=== PATIENT | male | born 1955 | race Caucasian/White ===

== ENCOUNTER 2017-10-25 21:33 | Inpatient (IN) ==
[2017-10-25] MEDS ORDERED: Ketorolac Inj 30 MG/ML (IVP) Vial IV.PUSH ONE (22:49)
[2017-10-25] MEDS ORDERED: Orphenadrine Inj 60 MG/2 ML Ampul IM ONE (22:49)
--- NOTE | 2017-10-25 23:06 | ED ---
HPI General Chief complaint: Back Pain/Injury Stated complaint: Back Pain Time Seen by Provider: 10/25/17 22:38 Source: patient Mode of arrival: EMS Limitations: no limitations History of Present Illness HPI narrative: 62-year-old male with history significant for CAD, CABG 5, pacemaker, presents emergency department for evaluation of left flank pain. Patient states that this started about 3 days ago. He was pulling weeds in his yard and he believes he may have "tweaked his back." He states the pain has not gotten any better despite what he tries. It has only gotten worse. He denies any urinary symptoms. No fever or chills. No nausea or vomiting. He has no other symptoms to report at this time. Related Data Home Medications Medication Instructions Recorded Confirmed Unable to Obtain Home Meds 10/25/17 10/25/17 Allergies Allergy/AdvReac Type Severity Reaction Status Date / Time No Known Allergies Allergy Unverified 10/25/17 22:42 Review of Systems ROS: all other systems reviewed are negative [facility] Medical History Medical History Coronary artery disease (Acute) High cholesterol (Acute) Pacemaker (Acute) Surgical History Surgical History Hx of CABG (Acute) Social History Social History Substance History: No History of Abuse Second Hand Smoke Exposure: No Smoking Status: Never smoker How Often Do You Have a Drink Containing Alcohol: Never [facility] within the Last 8 Weeks: No Recent Out of Country Travel within the Last 8 Weeks: No Immunization History Tetanus Immunization: Unsure Hx Influenza Vaccine This Season: No Exam Narrative Exam Narrative: GENERAL: Well-nourished male patient, appears well and without distress. SKIN: Focused skin assessment warm/dry. HEAD: Atraumatic. Normocephalic. EYES: Pupils equal and round. No scleral icterus. No injection or drainage. ENT: No nasal bleeding or discharge. Mucous membranes pink and moist. NECK: Trachea midline. No JVD. CARDIOVASCULAR: Regular rate and rhythm. RESPIRATORY: No accessory muscle use. Clear to auscultation. Breath sounds equal bilaterally. Left anterior chest wall pacemaker in place. GASTROINTESTINAL: Abdomen soft, nondistended. Left sided tenderness to palpation. Mild guarding. No rebound tenderness.. Hepatic and splenic margins not palpable. MUSCULOSKELETAL: No obvious deformities. No clubbing. No cyanosis. No edema. Left CVA tenderness. No spinal tenderness. NEUROLOGICAL: Awake and alert. No obvious cranial nerve deficits. Motor grossly within normal limits. Normal speech. PSYCHIATRIC: Appropriate mood and affect; insight and judgment normal. Course Initial Documented Vital Signs Temperature 98.7 F 10/25/17 22:14 Pulse Rate 85 10/25/17 22:14 Respiratory Rate 18 10/25/17 22:14 Blood Pressure 120/82 10/25/17 22:14 Pulse Oximetry 96 10/25/17 22:14 Last Documented Vital Signs Temperature 98.0 F 10/25/17 22:43 Pulse Rate 82 10/25/17 22:43 Respiratory Rate 16 10/25/17 23:56 Blood Pressure 148/90 H 10/25/17 22:43 Pulse Oximetry 97 10/25/17 22:43 Medical Decision Making SHIVA Attestation SHIVA supervised visit: Yes MDM Narrative Medical decision making narrative: 62-year-old male presents emergency department for evaluation of left flank pain, thanking you may have injured himself while pulling weeds 3 days ago. Patient appears without distress. He does have significant left-sided abdominal tenderness as well as left CVA tenderness. Urinalysis was drawn and with hematuria. Patient has been treated for pain. I have high suspicion for renal calculi. CT imaging is ordered. Basic labs ordered to evaluate for renal function as well. 0200 CT imaging results 2 mm nonobstructing renal calculi as well as enlargement of the left psoas muscle with inflammatory changes. There foci air within the muscle but no appreciable abscess. This is very concerning for infection. I discussed the patient my attending physician. He recommends blood cultures, IV antibiotics, admission to medicine with consideration of consult to general surgery for morning. Plan is discussed with the patient. He is in agreement with this plan of care. Medical Screen Exam Complete: Yes Emergency Medical Condition: Yes Differential Diagnosis Differential Diagnosis: Muscle strain versus discogenic pain versus renal calculi versus UTI Medical Records Medical records reviewed: Yes I reviewed the patient's medical records. Lab Data Lab results reviewed: Yes I reviewed the patient's lab results. Result diagrams: 10/26/17 00:25 10/26/17 00:25 Lab Results 10/25/17 10/26/17 10/26/17 Range/Units 23:10 00:25 00:25 WBC 7.4 (4.0-11.0) th/mm3 RBC 4.57 (4.50-5.90) mil/mm3 Hgb 14.5 (13.0-17.0) gm/dL Hct 42.9 (39.0-51.0) % MCV 93.7 (80.0-100.0) fL MCH 31.6 (27.0-34.0) pg MCHC 33.7 (32.0-36.0) % RDW 13.7 (11.6-17.2) % Plt Count 128 L (150-450) th/mm3 MPV 8.5 (7.0-11.0) fL Neut % (Auto) 87.9 H (16.0-70.0) % Lymph % (Auto) 5.1 L (9.0-44.0) % [place] % (Auto) 6.7 (0.0-8.0) % Eos % (Auto) 0.2 (0.0-4.0) % Baso % (Auto) 0.1 (0.0-2.0) % Neut # (Auto) 6.5 (1.8-7.7) th/mm3 Lymph # (Auto) 0.4 L (1.0-4.8) th/mm3 [place]ell # (Auto) 0.5 (0.0-0.9) th/mm3 Eos # (Auto) 0.0 (0.0-0.4) th/mm3 Baso # (Auto) 0.0 (0.0-0.2) th/mm3 WBC Differential . Differential Comment Auto diff final Sodium 140 (136-145) meq/L Potassium 3.3 L (3.5-5.1) meq/L Chloride 103 (98-107) meq/L Carbon Dioxide 26.4 (21.0-32.0) meq/L Anion Gap 11 (5-15) meq/L BUN 22 H (7-18) mg/dL Creatinine 1.21 (0.60-1.30) mg/dL Estimated GFR 61 L (>89) mL/min Random Glucose 121 H (74-106) mg/dL Calcium 8.5 (8.5-10.1) mg/dL Urine Color Yellow (Yellw/Straw) Urine Clarity Clear (Clear) Urine pH 5.0 (5.0-8.5) Ur Specific [place] 1.012 (1.002-1.035) Urine Protein 100 H (Neg-Trace) mg/dL Urine Glucose (UA) Negative (Negative) mg/dL Urine Ketones Negative (Negative) mg/dL Urine Occult Blood Moderate H (Negative) Urine Nitrate Negative (Negative) Urine Bilirubin Negative (Negative) Urine Urobilinogen 4 or greater (Less than 2) mg/dL Ur Leukocyte Esterase Negative (Negative) Urine RBC 1 (0-3) /hpf Urine WBC 1 (0-5) /hpf Ur Squamous Epith Cells <1 (0-5) /hpf Urine Mucus Few H (Occasional) /lpf Micro UA Comment Culture not ind Ur Microscopic Review Not Reportable Urine Culture Comments Culture not ind Imaging Data Radiologist's impression: Abdomen/Pelvis CT 10/26/17 00:16 CONCLUSION: 1. Left psoas muscle is enlarged with surrounding inflammatory change and contains multiple foci of air consistent with phlegmonous change and developing psoas abscess. However, there is no significant focal drainable collection at this time. 2. Punctate 2 mm nonobstructing right renal calculus. 3. Normal appendix. Discharge Plan Discharge Disposition Patient Disposition: 30 Still Patient Discharge Condition Condition: Stable Discharge Details Diagnosis: Psoas abscess, left, Calculus, renal, Acute flank pain Physicians Team ED Provider: Jamin Barrett ED Midlevel Provider: Alicia Ramirez Primary Care Provider: Primary Care Celia Denise Rxs /Orders / Referrals /Forms Prescriptions: No Action Unable to Obtain Home Meds RF: 0 Discharge Interventions Interventions: Vital Signs Last Done: 10/25/17 22:14 Status ED Status: Pending Admission
[2017-10-25] MEDS: Sod Chloride 0.9% Inj 1,000 ML IV.SIG SCH (23:08)
[2017-10-26 00:04] LABS: Bilirubin,Urine Negative (Negative); Clarity,Urine Clear (Clear); Color,Urine Yellow (Yellw/Straw); Glucose,Urine (UA) Negative (Negative); Leukocyte Esterase,Urine Negative (Negative); Mucus,Urine Few /lpf (Occasional); Nitrite,Urine Negative (Negative); Specific Gravity,Urine 1.012 (1.002-1.035); Squamous Epithelial Cell,Urine <1 /hpf (0-5); Urobilinogen,Urine 4 or Greater mg/dL (Less than 2)
[2017-10-26 00:43] LABS: Baso % (Auto) 0.1 % (0.0-2.0); Eos % (Auto) 0.2 % (0.0-4.0); Hematocrit 42.9 % (39.0-51.0); Hemoglobin 14.5 gm/dL (13.0-17.0); Lymph # (Auto) 0.4 th/mm3 (1.0-4.8); Lymph % (Auto) 5.1 % (9.0-44.0); Mean Corpuscular HGB Conc 33.7 % (32.0-36.0); Mean Corpuscular Hemoglobin 31.6 pg (27.0-34.0); Mean Corpuscular Volume 93.7 fL (80.0-100.0); Mean Platelet Volume 8.5 fL (7.0-11.0); Mono # (Auto) 0.5 th/mm3 (0.0-0.9); Mono % (Auto) 6.7 % (0.0-8.0); Neut # (Auto) 6.5 th/mm3 (1.8-7.7); Neut % (Auto) 87.9 % (16.0-70.0); Platelet Count 128 th/mm3 (150-450); Red Blood Count 4.57 mil/mm3 (4.50-5.90); Red Cell Distribution Width 13.7 % (11.6-17.2); White Blood Count 7.4 th/mm3 (4.0-11.0)
[2017-10-26 01:13] LABS: Calcium 8.5 mg/dL (8.5-10.1); Carbon Dioxide 26.4 meq/L (21.0-32.0); Potassium 3.3 meq/L (3.5-5.1)
--- NOTE | 2017-10-26 01:51 | CT ---
EXAM DATE: 10/26/2017 1:36 AM EDT AGE/SEX: 62 years / Male INDICATIONS: Left side flank pain CLINICAL DATA: This is the patient's initial encounter. Patient reports that signs and symptoms have been present for 1 day and indicates a pain score of 8/10. MEDICAL/SURGICAL HISTORY: Cardiovascular disease. Pacemaker. CABG. RADIATION DOSE: 16.85 CTDI (mGy) COMPARISON: No prior exams available for comparison. TECHNIQUE: Multiple contiguous axial images were obtained through the abdomen. Images were obtained using multiple row detector helical technique. Using automated exposure control and adjustment of the mA and/or kV according to patient size, radiation dose was kept as low as reasonably achievable to o btain optimal diagnostic quality images. DICOM format image data is available electronically for rev iew and comparison. FINDINGS: LOWER LUNGS: The visualized lower lungs are clear. LIVER: Diffusely homogeneous density without intrahepatic ductal dilatation or volume loss. [place]ad bra is mildly distended but otherwise unremarkable by CT. SPLEEN: Homogeneous density without enlargement. PANCREAS: Grossly unremarkable. KIDNEYS: Kidneys are symmetrical in size without hydronephrosis. There is a punctate 2 mm nonobstruc ting calculus in the inferior pole of the right kidney. No significant contour deforming renal abnorm ality. ADRENAL GLANDS: Unremarkable. AORTA: Lamar-aneurysmal. BOWEL/MESENTERY: The bowel loops are grossly unremarkable. The cecum and sigmoid colon have a sherin l configuration. No significant free fluid or drainable fluid collections. No free air. Appendix is v isualized and normal in appearance. ABDOMINAL WALL: Intact. There is prominence of the left psoas which contains an 8 mm focus of air wi th mild adjacent inflammatory change. BLADDER: Asymmetric bladder wall thickening in the right anterior bladder with slight deformity towa rds the right inguinal hernia. Bilateral fat-containing inguinal hernias, right greater than left. REPRODUCTIVE: Grossly unremarkable. BONY STRUCTURES: S-shaped scoliosis of the lumbar spine. Multilevel degenerative spondylosis of the lumbar spine without significant erosive change. CONCLUSION: 1. Left psoas muscle is enlarged with surrounding inflammatory change and contains multiple foci of air consistent with phlegmonous change and developing psoas abscess. However, there is no significant focal drainable collection at this time. 2. Punctate 2 mm nonobstructing right renal calculus. 3. Normal appendix. Electronically signed by: John Paul MD 10/26/2017 1:50 AM EDT
[2017-10-26] MEDS ORDERED: Vancomycin Inj 1,000 MG in Sodium Chlor 0.9% Inj 250 ML IV.SIG ONE (02:06)
[2017-10-26] MEDS ORDERED: Piperacil/Tazo 4.5 GM Premix 4.5 GM/100 ML BAG IV.SIG ONE (02:06)
[2017-10-26] MEDS ORDERED: Morphine Inj 4 MG/ML Vial IV.PUSH ONE (02:06)
[2017-10-26] MEDS ORDERED: Acetaminophen 325 MG Tablet PO PRN (03:15)
[2017-10-26] MEDS ORDERED: Bisacodyl 10 MG Supp RECTAL PRN (03:15)
--- NOTE | 2017-10-26 04:16 | P.HPIM ---
History of Present Illness Primary Care Physician: No Primary Care Physician History of Present Illness: This is a 62-year-old male with a PMH of HTN, Hyperlipidemia, Pacemaker and CAD s/p CABG who presented to the ER with complaints of severe back pain x3 days. States he was pulling weeds on Friday (4 days ago) and had complaints of left -sided back pain, states "I've been bed bound since ". No h/o similar symptoms. Pain is constant, severe, 10/10, non-radiating, worse w/ movement. On arrival, BP 120/82, HR 85, O2 sat 96% on RA, Afebrile. CBC unremarkable except for platelets 128. Chemistry essentially unremarkable except for K+ 3.3. UA negative for UTI. DT Abdomen/Pelvis left psoas muscle enlarged with surrounding inflammatory changes and multiple foci of air consistent with early abscess. Pt denies fever or chills, no recent trauma. - Diagnosis (1) Psoas abscess, left (2) Intractable pain (3) Hypokalemia Review of Systems PAST FAMILY HISTORY: Reviewed. 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 - Medical History Medical History: Medical History (Last Reviewed 10/26/17 @ 02:36 by CLARENCE Whitt) Coronary artery disease High cholesterol Pacemaker - Surgical History Surgical History: Surgical History (Last Reviewed 10/26/17 @ 02:36 by CLARENCE Whitt) Hx of CABG - Tobacco History Second Hand Smoke Exposure: No Smoking Status: Never smoker - Alcohol History How Often Do You Have a Drink Containing Alcohol: Never - Substance Use History Substance History: No History of Abuse - Travel History Recent Travel in the [place] Within the Last 8 Weeks: No Recent Travel Out of the Country Within the Last 8 Weeks: No - Immunization History Tetanus Immunization: Unsure Hx Influenza Vaccine This Season: No Medications and Allergies Active Medications: Active Medications Acetaminophen (Tylenol) 650 mg PO Q4H PRN PRN Reason: Temp > 100.4 Al Hydroxide/Mg Hydroxide (Milk Of Magnesia Liq) 30 ml PO Q12H PRN PRN Reason: Mild Constipation Bisacodyl (Dulcolax Supp) 10 mg RECTAL DAILY PRN PRN Reason: SEVERE CONSITIPATION Sodium Chloride (Ns Inj) 1,000 mls @ 0 mls/hr IV.SIG BOLUS ROXY Last Infusion: 10/26/17 00:04 Dose: Infused Piperacillin/Tazobactam/Dextrose (Zosyn 4.5 Gm Premix) 4.5 gm in 100 mls @ 200 mls/hr IV.SIG Q6H ROXY Sodium Chloride (Ns Inj) 1,000 mls @ 100 mls/hr IV.CONT .Q10H ROXY Lactulose (Lactulose Liq) 30 ml PO DAILY PRN PRN Reason: SEVERE CONSITIPATION Morphine Sulfate (Morphine Inj) 2 mg IV.PUSH Q4H PRN PRN Reason: PAIN 6-10 Ondansetron HCl (Zofran Inj) 4 mg IV.PUSH Q6H PRN PRN Reason: NAUSEA OR VOMITING Senna/Docusate Sodium ([place]-Colace) 1 tab PO BID ROXY Sennosides (Senokot) 17.2 mg PO Q12H PRN PRN Reason: Moderate Constipation Allergies Allergy/AdvReac Type Severity Reaction Status Date / Time No Known Allergies Allergy Unverified 10/25/17 22:42 Home Medications Medication Instructions Recorded Confirmed Type Unable to Obtain Home Meds 10/25/17 10/25/17 History Exam Vital signs: Vital Signs 10/25/17 22:14 10/25/17 22:43 10/25/17 23:56 Temperature 98.7 F 98.0 F Pulse Rate 85 82 Respiratory Rate 18 20 16 Blood Pressure 120/82 148/90 H Pulse Oximetry 96 97 10/26/17 02:40 Temperature Pulse Rate 88 Respiratory Rate 18 Blood Pressure 133/82 Pulse Oximetry 97 Intake & Output 10/25/17 10/25/17 10/26/17 06:59 18:59 06:59 Intake Total 1100 / 1100 Balance 1100 / 1100 Weight 93.416 kg Intake: IV 1100 / 1100 Zosyn 4.5 GM Premix 4.5 gm In 100 / 100 100 ml @ 200 mls/hr IV.SIG ONCE ONE Rx#:[id number] NS Inj 1,000 ML @ Wide Open IV. 1000 / 1000 SIG BOLUS ROXY Rx#:[id number] Narrative: PE: GENERAL: Pleasant middle-aged white male in no acute distress. SKIN: Focused skin assessment warm and dry. HEENT: PERRLA, EOMI. No scleral icterus or conjunctival pallor. No lid lag or facial droop. CARDIOVASCULAR: Regular rate and rhythm. No obvious murmurs to auscultation. No chest tenderness to palpation. RESPIRATORY: No obvious rhonchi or wheezing. Clear to auscultation. Breath sounds equal bilaterally. GASTROINTESTINAL: Abdomen soft, non-tender, nondistended. BS normal. MUSCULOSKELETAL: Extremities without clubbing, cyanosis, or edema. No obvious deformities. Left flank/back tenderness to palpation and w/ movement. NEUROLOGICAL: Awake, alert and oriented x4. No focal neurologic deficits. Moving both upper and lower extremities spontaneously. PSYCHIATRIC: Appropriate mood and affect. Insight and judgment normal. Results - Labs CBC & Chem 7: 10/26/17 00:25 10/26/17 00:25 Labs: Short CBC 10/26/17 Range/Units 00:25 WBC 7.4 (4.0-11.0) th/mm3 Hgb 14.5 (13.0-17.0) gm/dL Hct 42.9 (39.0-51.0) % Plt Count 128 L (150-450) th/mm3 BMP 10/26/17 00:25 Sodium 140 Potassium 3.3 L Chloride 103 Carbon Dioxide 26.4 BUN 22 H Creatinine 1.21 Calcium 8.5 Urine 10/25/17 Range/Units 23:10 Urine Color Yellow (Yellw/Straw) Urine Clarity Clear (Clear) Urine pH 5.0 (5.0-8.5) Ur Specific [place] 1.012 (1.002-1.035) Urine Protein 100 H (Neg-Trace) mg/dL Urine Glucose (UA) Negative (Negative) mg/dL - Imaging Impressions Abdomen/Pelvis CT 10/26/17 00:16 CONCLUSION: 1. Left psoas muscle is enlarged with surrounding inflammatory change and contains multiple foci of air consistent with phlegmonous change and developing psoas abscess. However, there is no significant focal drainable collection at this time. 2. Punctate 2 mm nonobstructing right renal calculus. 3. Normal appendix. Caprini VTE Risk Assessment Caprini VTE Risk Assessment: No/Low Risk (score <= 1) Caprini Risk Assessment Model: Point Value = 1 Point Value = 2 Point Value = 3 Point Value = 5 Age 41-60 Minor surgery BMI > 25 kg/m2 Swollen legs Varicose veins or History of unexplained or recurrent spontaneous Oral contraceptives or hormone replacement Sepsis (< 1 month) Serious lung disease, including pneumonia (< 1 month) Abnormal pulmonary function Acute myocardial infarction Congestive heart failure (< 1 month) History of inflammatory bowel disease Medical patient at bed rest Age 61-74 Arthroscopic surgery Major open surgery (> 45 min) Laparoscopic surgery (> 45 min) Malignancy Confined to bed (> 72 hours) Immobilizing plaster cast Central venous access Age >= 75 History of VTE Family history of VTE Factor V Leiden Prothrombin [id number] Lupus anticoagulant Anticardiolipin antibodies Elevated serum homocysteine Heparin-induced thrombocytopenia Other congenital or acquired thrombophilia Stroke (< 1 month) Elective arthroplasty Hip, pelvis, or leg fracture Acute spinal cord injury (< 1 month) Prophylaxis Regimen: Total Risk Factor Score Risk Level Prophylaxis Regimen 0-1 Low Early ambulation 2 Moderate Order ONE of the following: *Sequential Compression Device (SCD) *Heparin 5000 units SQ BID 3-4 Higher Order ONE of the following medications: *Heparin 5000 units SQ TID *Enoxaparin/Lovenox 40 mg SQ daily (WT < 150 kg, CrCl > 30 mL/min) *Enoxaparin/Lovenox 30 mg SQ daily (WT < 150 kg, CrCl > 10-29 mL/min) *Enoxaparin/Lovenox 30 mg SQ BID (WT < 150 kg, CrCl > 30 mL/min) AND/OR *Sequential Compression Device (SCD) 5 or more Highest Order ONE of the following medications: *Heparin 5000 units SQ TID (Preferred with Epidurals) *Enoxaparin/Lovenox 40 mg SQ daily (WT < 150 kg, CrCl > 30 mL/min) *Enoxaparin/Lovenox 30 mg SQ daily (WT < 150 kg, CrCl > 10-29 mL/min) *Enoxaparin/Lovenox 30 mg SQ BID (WT < 150 kg, CrCl > 30 mL/min) AND *Sequential Compression Device (SCD) Assessment and Plan - Assessment (1) Psoas abscess, left Code(s): K68.12 - Psoas muscle abscess Status: Acute (2) Intractable pain Code(s): R52 - Pain, unspecified Status: Acute (3) Hypokalemia Code(s): E87.6 - Hypokalemia Status: Acute - Plan A/P: 1. Left Psoas Abscess: acute onset of back pain, CT Abd/Pelvis w/ left psoas inflammatory changes and multiple foci of air consistent w/ early abscess, images reviewed. Check Blood Cultures. Consult Gen Sx for further eval, likely amenable to drainage by IR. Continue IV Abx, follow up cultures. 2. Intractable Pain: secondary to above, analgesics/antiemetics as needed. 3. Hypokalemia: K+ 3.3, will replace and recheck 4. DVT Prophylaxis: SCD/Teds 5. Social work for d/c planning as needed 6. Case discussed w/ ER physician at length, labs/records/imaging reviewed by me.
[2017-10-26] MEDS: Sod Chloride 0.9% Inj 1,000 ML IV.CONT SCH ×2 (05:36→16:53)
[2017-10-26] MEDS: Morphine Sulfate Inj 2 MG/ML Vial IV.PUSH PRN ×4 (05:37→19:40)
[2017-10-26] MEDS: Senna/Docusate Sodium 8.6/50 MG Tablet PO SCH ×2 (08:31→22:08)
[2017-10-26] MEDS: Piperacil/Tazo 4.5 GM Premix 4.5 GM/100 ML BAG IV.SIG SCH ×3 (08:31→22:07)
--- NOTE | 2017-10-26 17:03 | P.CON ---
History of Present Illness Consult date: 10/26/17 Reason for Consult: Psoas inflammatory process Primary Care Provider: No Primary Care Physician History of Present Illness: Patient is a 62-year-old male with history of hypertension hyperlipidemia and coronary artery disease with pacemaker who presented to the ED with predominantly left flank pain UA was negative for UTI. CT scan obtained which demonstrated left psoas muscle enlargement with some surrounding inflammatory changes with multiple foci of air. I have questionED the patient regarding previous history of diverticulitis or left lower quadrant pain and he currently denies any history of this. He denies any history of change in bowel habits, or previous history of pain of this type. He does report a history of chronic right inguinal hernia, but this does not cause him any pain or discomfort except when he has an over full bladder. Review of Systems All other systems reviewed negative except as stated in HPI PMFSH - History History Provided By: Patient - Medical History Medical History: Medical History (Last Reviewed 10/26/17 @ 17:00 by Odin Mcarthur MD) Coronary artery disease High cholesterol Pacemaker - Surgical History Surgical History: Surgical History (Last Reviewed 10/26/17 @ 17:00 by Odin Mcarthur MD) Hx of CABG - Tobacco History Second Hand Smoke Exposure: No Smoking Status: Never smoker - Alcohol History How Often Do You Have a Drink Containing Alcohol: Never - Substance Use History Substance History: No History of Abuse - Travel History Recent Travel in the USA Within the Last 8 Weeks: No Recent Travel Out of the Country Within the Last 8 Weeks: No - Immunization History Tetanus Immunization: Unsure Hx Influenza Vaccine This Season: No Medications and Allergies Active Medications: Active Medications Acetaminophen (Tylenol) 650 mg PO Q4H PRN PRN Reason: Temp > 100.4 Al Hydroxide/Mg Hydroxide (Milk Of Magnmohsen Liq) 30 ml PO Q12H PRN PRN Reason: Mild Constipation Bisacodyl (Dulcolax Supp) 10 mg RECTAL DAILY PRN PRN Reason: SEVERE CONSITIPATION Sodium Chloride (Ns Inj) 1,000 mls @ 0 mls/hr IV.SIG BOLUS [facility] Last Infusion: 10/26/17 00:04 Dose: Infused Piperacillin/Tazobactam/Dextrose (Zosyn 4.5 Gm Premix) 4.5 gm in 100 mls @ 200 mls/hr IV.SIG Q6H [facility] Last Infusion: 10/26/17 15:40 Dose: Infused Sodium Chloride (Ns Inj) 1,000 mls @ 100 mls/hr IV.CONT .Q10H [facility] Last Admin: 10/26/17 16:53 Dose: 100 mls/hr Lactulose (Lactulose Liq) 30 ml PO DAILY PRN PRN Reason: SEVERE CONSITIPATION Morphine Sulfate (Morphine Inj) 2 mg IV.PUSH Q4H PRN PRN Reason: PAIN 6-10 Last Admin: 10/26/17 15:54 Dose: 2 mg Ondansetron HCl (Zofran Inj) 4 mg IV.PUSH Q6H PRN PRN Reason: NAUSEA OR VOMITING Senna/Docusate Sodium (Ana Paula-Colace) 1 tab PO BID [facility] Last Admin: 10/26/17 08:31 Dose: 1 tab Sennosides (Senokot) 17.2 mg PO Q12H PRN PRN Reason: Moderate Constipation Allergies Allergy/AdvReac Type Severity Reaction Status Date / Time No Known Allergies Allergy Unverified 10/25/17 22:42 Home Medications Medication Instructions Recorded Confirmed Type amiodarone 200 mg PO DAILY 10/26/17 10/26/17 History atorvastatin 40 mg PO DAILY 10/26/17 10/26/17 History clopidogrel 75 mg PO DAILY 10/26/17 10/26/17 History furosemide 40 mg PO DAILY 10/26/17 10/26/17 History levothyroxine 25 mcg PO DAILY 10/26/17 10/26/17 History meloxicam 7.5 mg PO BID 10/26/17 10/26/17 History metoprolol succinate 25 mg PO DAILY 10/26/17 10/26/17 History Physical Exam Vital signs: Vital Signs 10/25/17 22:14 10/25/17 22:43 10/25/17 23:56 Temperature 98.7 F 98.0 F Pulse Rate 85 82 Respiratory Rate 18 20 16 Blood Pressure 120/82 148/90 H Pulse Oximetry 96 97 10/26/17 02:40 10/26/17 08:00 10/26/17 11:39 Temperature 97.7 F 99.1 F Pulse Rate 88 91 H 98 H Respiratory Rate 18 16 16 Blood Pressure 133/82 157/102 H 141/92 H Pulse Oximetry 97 95 98 10/26/17 12:11 10/26/17 16:00 Temperature 98.6 F Pulse Rate 98 H Respiratory Rate 16 18 Blood Pressure 141/78 H Pulse Oximetry 92 L Intake & Output 10/25/17 10/26/17 10/26/17 18:59 06:59 18:59 Intake Total 1350 / 1350 1200 / 1200 Output Total 200 / 200 Balance 1350 / 1350 1000 / 1000 Weight 92.986 kg Intake: IV 1350 / 1350 1200 / 1200 NS Inj 1,000 ML @ 100 mls/hr IV 1000 / 1000 .CONT .Q10H [facility] Rx#:[id number] Zosyn 4.5 GM Premix 4.5 gm In 100 / 100 200 / 200 100 ml @ 200 mls/hr IV.SIG Q6H [facility] Rx#:[id number] NS Inj 1,000 ML @ Wide Open IV. 1000 / 1000 SIG BOLUS [facility] Rx#:[id number] Vancomycin Inj 1,000 MG In NS 250 / 250 Inj 250 ML @ 250 mls/hr IV.SIG ONCE ONE Rx#:[id number] Output: Urine 200 / 200 Other: Weight On Admission 92.986 kg - Constitutional no acute distress - Routine HEENT Exam Head: Present: normocephalic, atraumatic - Routine Neck Exam Present: supple - Routine Respiratory Exam Present: CTA bilaterally - Routine Cardiovascular Exam Present: RRR - Routine Abdominal Exam Present: soft Comments: No anterior abdominal tenderness; left flank tenderness with guarding - Routine Exam Scrotal: Present: hernia (Right side) Groin: Present: inguinal hernia (Right partially reducible.) - Routine Skin Exam Present: intact Assessment and Plan - Assessment (1) Psoas abscess, left Code(s): K68.12 - Psoas muscle abscess Status: Acute Plan: Careful observation. If his pain does not subside with antibiotics and rest, will need to consider repeat imaging. If he develops a fluid collection, percutaneous drainage may be his best management. We will follow with you. (2) Acute flank pain Code(s): R10.9 - Unspecified abdominal pain Status: Acute - Attending Attestation I attest that I had a [id number] encounter with the patient on the same day, and personally performed and documented my assessment and findings in the medical record. The following services were provided during this hospital visit: Chart data review, vital sign assessments/reviewing monitor data Review of consultation notes if present Medication orders/review and/or management Ordering and/or reviewing lab tests Ordering and/or interpreting/reviewing x-rays and/or diagnostic studies Care of the patient and discussion of the patient with the care team Documentation time To help prompt me to consider important information that might be impacting today's encounter and assessment, Information from prior notes written by myself or my colleagues may have been "brought forward/copy and pasted" into today's note.
[2017-10-26] MEDS ORDERED: Vancomycin Consult Pharmacy OTHER PRN (18:43)
[2017-10-26] MEDS ORDERED: Vancomycin Inj 2,000 MG in Sodium Chlor 0.9% Inj 500 ML IV.SIG ONE (21:00)
[2017-10-27] MEDS: Morphine Sulfate Inj 2 MG/ML Vial IV.PUSH PRN ×5 (00:04→20:02)
[2017-10-27] MEDS: Sod Chloride 0.9% Inj 1,000 ML IV.CONT SCH ×5 (01:42→22:24)
[2017-10-27] MEDS: Piperacil/Tazo 4.5 GM Premix 4.5 GM/100 ML BAG IV.SIG SCH ×3 (03:29→15:32)
[2017-10-27 04:37] LABS: Baso % (Auto) 0.2 % (0.0-2.0); Eos % (Auto) 0.1 % (0.0-4.0); Hematocrit 41.1 % (39.0-51.0); Hemoglobin 13.9 gm/dL (13.0-17.0); Lymph # (Auto) 0.7 th/mm3 (1.0-4.8); Lymph % (Auto) 8.1 % (9.0-44.0); Mean Corpuscular HGB Conc 33.9 % (32.0-36.0); Mean Corpuscular Hemoglobin 31.9 pg (27.0-34.0); Mean Corpuscular Volume 94.1 fL (80.0-100.0); Mean Platelet Volume 8.5 fL (7.0-11.0); Neut % (Auto) 80.6 % (16.0-70.0); Platelet Count 121 th/mm3 (150-450); Red Blood Count 4.37 mil/mm3 (4.50-5.90); Red Cell Distribution Width 13.8 % (11.6-17.2); White Blood Count 8.7 th/mm3 (4.0-11.0)
[2017-10-27 05:07] LABS: Alanine Aminotransferase 64 U/L (12-78); Albumin 2.3 g/dL (3.4-5.0); Alkaline Phosphatase 179 U/L (45-117); Anion Gap 9 meq/L (5-15); Aspartate Aminotransferase 46 U/L (15-37); Blood Urea Nitrogen 11 mg/dL (7-18); Calcium 8.3 mg/dL (8.5-10.1); Carbon Dioxide 26.5 meq/L (21.0-32.0); Chloride 107 meq/L (98-107); Glomerular Filtration Rate 69 mL/min (>89); Glucose,Random 104 mg/dL (74-106); Potassium 3.7 meq/L (3.5-5.1); Sodium 142 meq/L (136-145); Total Protein 5.9 g/dL (6.4-8.2)
[2017-10-27] MEDS ORDERED: Vancomycin Inj 1,000 MG in Sodium Chlor 0.9% Inj 250 ML IV.SIG SCH (09:00)
[2017-10-27] MEDS: Senna/Docusate Sodium 8.6/50 MG Tablet PO SCH ×2 (09:03→20:02)
--- NOTE | 2017-10-27 13:06 | P.PNGS ---
Subjective Interval history: Still with LEFT flank pain but a little better today Would like to get to recliner chair today ---I have asked RN to get him recliner chair Physical Exam Vital signs: Vital Signs 10/26/17 16:00 10/26/17 21:22 10/27/17 04:00 Temperature 98.6 F 99.4 F 99.5 F Pulse Rate 98 H 94 H 86 Respiratory Rate 18 22 16 Blood Pressure 141/78 H 133/86 141/88 H Pulse Oximetry 92 L 92 L 10/27/17 08:00 10/27/17 12:00 Temperature 98.0 F 98.5 F Pulse Rate 79 88 Respiratory Rate 16 16 Blood Pressure 144/88 H 128/88 Pulse Oximetry 92 L 93 L Intake & Output 10/26/17 10/27/17 10/27/17 18:59 06:59 18:59 Intake Total 1200 / 1200 2080 / 2080 1100 / 1100 Output Total 200 / 200 240 / 240 Balance 1000 / 1000 1840 / 1840 1100 / 1100 Intake: IV 1200 / 1200 1720 / 1720 1100 / 1100 NS Inj 1,000 ML @ 100 mls/hr IV 1000 / 1000 1000 / 1000 1000 / 1000 .CONT .Q10H [facility] Rx#:[id number] Zosyn 4.5 GM Premix 4.5 gm In 200 / 200 200 / 200 100 / 100 100 ml @ 200 mls/hr IV.SIG Q6H [facility] Rx#:[id number] Vancomycin Inj 2,000 MG In NS 520 / 520 Inj 500 ML @ 250 mls/hr IV.SIG ONCE ONE Rx#:[id number] Oral 360 / 360 Output: Urine 200 / 200 240 / 240 Other: # Voids 3 Date of Last Bowel Movement 10/23/17 10/23/17 Narrative: Alert and awake LEFT flank tenderness with palpation - Routine Abdominal Exam Comments: Minimal flank pain; less than on admission Results - Labs 11/10/17 05:18 11/11/17 07:52 Assessment and Plan - Assessment (1) Psoas abscess, left Code(s): K68.12 - Psoas muscle abscess Status: Acute Plan: 62 year old male with LEFT psoas muscle abscess -Afebrile -WBC normal -Pain slightly better -If he become febrile, increase in WBC and/or increase in pain will consider re- scanning patient -Continue IV antibiotics -Continue non operative treatment As above; may need re-scanning The exam, history, and the medical decision-making described in the above note were completed with the assistance of the mid-level provider. I reviewed and agree with the findings presented. I attest that I had a [id number] encounter with the patient on the same day, and personally performed and documented my assessment and findings in the medical record. (2) Acute flank pain Code(s): R10.9 - Unspecified abdominal pain Status: Acute
--- NOTE | 2017-10-27 14:52 | P.CONID ---
History of Present Illness Service: Infectious disease Consult date: 10/27/17 Requesting Physician: Mc Oliva Reason for Consult: Evaluate patient with bacteremia Primary Care Provider: No Primary Care Physician History of Present Illness: Patient seen and examined. Records reviewed. Patient is a 62-year-old male, presented to the hospital complaining of 4-5 day history of left-sided flank pain. He was apparently working in the yard, pulling weeds and he was doing this for 2 days. About 4 days prior to admission he started experiencing left-sided flank, side pain and the pain was quite severe that he was not able to do much. He denies any fever chills or sweats. He has not had any nausea or vomiting. He has not had any problem with his bowels. He has been voiding without any problem. Patient has not had any treatment for any infection in the last several months. On presentation he has had some low-grade temps. His WBC is normal. CT of the abdomen and pelvis showing asymmetry in his psoas muscle with the left being big and there are some foci of gas. There is no other abnormality seen. Blood cultures done on admission are now reported as growing gram-positive cocci in clusters. His urinalysis is unremarkable. Patient has known coronary artery disease and had undergone CABG in 2016. He stated that his pacemaker was placed about a year before his CABG. This was done in [place]. 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 Infectious disease consultation has been requested to evaluate the patient with positive blood culture. Patient still complaining of significant pain in the left flank. Review of Systems Constitutional: Reports lack of energy, Denies chills, Denies fever(s), Denies night sweats Eyes: Denies discharge, Denies dry eyes Ears, Nose, Mouth, and Throat: Denies dental pain, Denies difficulty swallowing , Denies ear pain, Denies facial pain, Denies headache(s), Denies mouth pain, Denies nasal discharge, Denies pain with swallowing, Denies sore throat Cardiovascular: Denies chest pain, Denies shortness of breath Respiratory: Denies chest congestion, Denies cough, Denies shortness of breath Gastrointestinal: Denies abdominal pain, Denies constipation, Denies difficulty swallowing, Denies loose stools, Denies nausea, Denies pain with swallowing, Denies vomiting Genitourinary: Denies difficulty urinating, Denies painful urination Musculoskeletal: Denies joint pain, Denies joint swelling Skin/Breast: Denies rash, Denies sores Neurologic: Denies confusion, Denies localized weakness PMFSH - History History Provided By: Patient - Medical History Medical History: Medical History (Last Reviewed 10/27/17 @ 14:47 by Jade Demarco MD) Coronary artery disease High cholesterol Pacemaker - Surgical History Surgical History: Surgical History (Last Reviewed 10/27/17 @ 14:47 by Jade Demarco MD) Hx of CABG - Tobacco History Second Hand Smoke Exposure: No Smoking Status: Never smoker - Alcohol History How Often Do You Have a Drink Containing Alcohol: Never - Substance Use History Substance History: No History of Abuse - Travel History Recent Travel in the [place] Within the Last 8 Weeks: No Recent Travel Out of the Country Within the Last 8 Weeks: No - Immunization History Tetanus Immunization: Unsure Hx Influenza Vaccine This Season: No Medications and Allergies Active Medications: Active Medications Acetaminophen (Tylenol) 650 mg PO Q4H PRN PRN Reason: Temp > 100.4 Al Hydroxide/Mg Hydroxide (Milk Of Magnesia Liq) 30 ml PO Q12H PRN PRN Reason: Mild Constipation Bisacodyl (Dulcolax Supp) 10 mg RECTAL DAILY PRN PRN Reason: SEVERE CONSITIPATION Sodium Chloride (Ns Inj) 1,000 mls @ 0 mls/hr IV.SIG BOLUS [facility] Last Infusion: 10/26/17 00:04 Dose: Infused Sodium Chloride (Ns Inj) 1,000 mls @ 100 mls/hr IV.CONT .Q10H [facility] Last Admin: 10/27/17 10:13 Dose: 100 mls/hr Vancomycin HCl 1,000 mg/ (Sodium Chloride) 250 mls @ 250 mls/hr IV.SIG Q12H [facility] Last Infusion: 10/27/17 13:48 Dose: Infused Cefazolin Sodium 2,000 mg/ (Sodium Chloride) 100 mls @ 200 mls/hr IV.SIG Q8H [facility] Lactulose (Lactulose Liq) 30 ml PO DAILY PRN PRN Reason: SEVERE CONSITIPATION Morphine Sulfate (Morphine Inj) 2 mg IV.PUSH Q4H PRN PRN Reason: PAIN 6-10 Last Admin: 10/27/17 13:49 Dose: 2 mg Ondansetron HCl (Zofran Inj) 4 mg IV.PUSH Q6H PRN PRN Reason: NAUSEA OR VOMITING Pharmacy Profile Note (Vancomycin Consult Pharmacy) 1 each OTHER UNSCH PRN PRN Reason: Pharmacy to dose Senna/Docusate Sodium (Ana Paula-Colace) 1 tab PO BID [facility] Last Admin: 10/27/17 09:03 Dose: 1 tab Sennosides (Senokot) 17.2 mg PO Q12H PRN PRN Reason: Moderate Constipation Allergies Allergy/AdvReac Type Severity Reaction Status Date / Time No Known Allergies Allergy Unverified 10/25/17 22:42 Home Medications Medication Instructions Recorded Confirmed Type amiodarone 200 mg PO DAILY 10/26/17 10/26/17 History atorvastatin 40 mg PO DAILY 10/26/17 10/26/17 History clopidogrel 75 mg PO DAILY 10/26/17 10/26/17 History furosemide 40 mg PO DAILY 10/26/17 10/26/17 History levothyroxine 25 mcg PO DAILY 10/26/17 10/26/17 History meloxicam 7.5 mg PO BID 10/26/17 10/26/17 History metoprolol succinate 25 mg PO DAILY 10/26/17 10/26/17 History Exam Vital signs: Vital Signs 10/26/17 16:00 10/26/17 21:22 10/27/17 04:00 Temperature 98.6 F 99.4 F 99.5 F Pulse Rate 98 H 94 H 86 Respiratory Rate 18 22 16 Blood Pressure 141/78 H 133/86 141/88 H Pulse Oximetry 92 L 92 L 10/27/17 08:00 10/27/17 12:00 Temperature 98.0 F 98.5 F Pulse Rate 79 88 Respiratory Rate 16 16 Blood Pressure 144/88 H 128/88 Pulse Oximetry 92 L 93 L Intake & Output 10/26/17 10/27/17 10/27/17 18:59 06:59 18:59 Intake Total 1200 / 1200 2080 / 2080 1350 / 1350 Output Total 200 / 200 240 / 240 Balance 1000 / 1000 1840 / 1840 1350 / 1350 Intake: IV 1200 / 1200 1720 / 1720 1350 / 1350 NS Inj 1,000 ML @ 100 mls/hr IV 1000 / 1000 1000 / 1000 1000 / 1000 .CONT .Q10H [facility] Rx#:[id number] Zosyn 4.5 GM Premix 4.5 gm In 200 / 200 200 / 200 100 / 100 100 ml @ 200 mls/hr IV.SIG Q6H [facility] Rx#:[id number] Vancomycin Inj 1,000 MG In NS 250 / 250 Inj 250 ML @ 250 mls/hr IV.SIG Q12H [facility] Rx#:[id number] Vancomycin Inj 2,000 MG In NS 520 / 520 Inj 500 ML @ 250 mls/hr IV.SIG ONCE ONE Rx#:[id number] Oral 360 / 360 Output: Urine 200 / 200 240 / 240 Other: # Voids 3 Date of Last Bowel Movement 10/23/17 10/23/17 Narrative: Physical Examination GENERAL: Patient is a well-nourished, well-developed male, awake and alert, not in respiratory distress. SKIN: Warm and dry. No generalized rash, no ecchymoses and no evidence of embolic lesions. HEAD: Atraumatic. Normocephalic. No temporal wasting, or tenderness. EYES: [place] conjunctiva. No petechia or hemorrhage. Pupils equal, round and reactive to light. Extraocular movements full and intact. No scleral icterus. No injection or drainage. EARS, NOSE AND THROAT: Nose without bleeding or purulent nasal discharge. No sinus tenderness. Mucous membranes pink and moist. No oral lesions noted. No exudate. No oral thrush. NECK: Trachea midline. Supple and not tender, no meningeal signs CARDIOVASCULAR: Regular rate and rhythm. No murmurs, rubs or gallops heard. Pacemaker in L upper chest with no evidence of infection RESPIRATORY: Clear to auscultation. Breath sounds equal bilaterally. No rales , wheezing or rhonchi ABDOMEN: Soft, nondistended, with tenderness in LLQ. Bowel sounds present and normoactive. No guarding. No rebound. No organomegaly. EXTREMITIES: No clubbing, cyanosis, or edema. No joint effusion, has good ROM. No calf tenderness. Well perfused and warm. NEUROLOGICAL: Awake and alert. Cranial nerves grossly intact. Motor grossly within normal limits. PSYCHIATRIC: Normal affect, calm and cooperative. LINE: No evidence of infection Results - Labs CBC & Chem 7: 10/27/17 03:55 10/27/17 03:55 Labs: Laboratory Results - last 24 hr 10/27/17 10/27/17 03:55 03:55 WBC 8.7 RBC 4.37 L Hgb 13.9 Hct 41.1 MCV 94.1 MCH 31.9 MCHC 33.9 RDW 13.8 Plt Count 121 L MPV 8.5 Neut % (Auto) 80.6 H Lymph % (Auto) 8.1 L Bond % (Auto) 11.0 H Eos % (Auto) 0.1 Baso % (Auto) 0.2 Neut # (Auto) 7.0 Lymph # (Auto) 0.7 L Bond # (Auto) 1.0 H Eos # (Auto) 0.0 Baso # (Auto) 0.0 WBC Differential . Differential Comment Auto diff final Sodium 142 Potassium 3.7 Chloride 107 Carbon Dioxide 26.5 Anion Gap 9 BUN 11 Creatinine 1.08 Estimated GFR 69 L Random Glucose 104 Calcium 8.3 L Total Bilirubin 1.7 H AST 46 H ALT 64 Alkaline Phosphatase 179 H Total Protein 5.9 L Albumin 2.3 L - Imaging Abdomen/Pelvis CT 10/26/17 00:16 CONCLUSION: 1. Left psoas muscle is enlarged with surrounding inflammatory change and contains multiple foci of air consistent with phlegmonous change and developing psoas abscess. However, there is no significant focal drainable collection at this time. 2. Punctate 2 mm nonobstructing right renal calculus. 3. Normal appendix. Assessment and Plan - Plan Impression Staph aureus sepsis, worrisome foe endovascular focus, IE, pacer L psoas fluid collection likely abscess, hematogenous spread S/P CABG 2015 S/P Pacemaker 2014 Recommendation Echo - likely will need RACHEL Repeat BC to document clearing CT guided drainage of fluid collection - check coags IV Ancef IV Vanco Stop Zosyn Follow C/S and adjust Abx I will determine course of Abx once work-up is completed Monitor progress I will follow along with you Thank you for this consultation Explained plan to the patient
--- NOTE | 2017-10-27 14:55 | P.PN ---
Subjective Interval history: Patient is seen lying in bed. He remains exquisitely tender over his left lower back and is particularly painful when he moves. Discussed that we would like to him to get up in a recliner chair however he is not at all interested in that. No fever or chills but he does report having chills prior to coming to the hospital. No chest pain or shortness of breath. No nausea vomiting or diarrhea. Physical Exam Vital signs: Vital Signs 10/26/17 16:00 10/26/17 21:22 10/27/17 04:00 Temperature 98.6 F 99.4 F 99.5 F Pulse Rate 98 H 94 H 86 Respiratory Rate 18 22 16 Blood Pressure 141/78 H 133/86 141/88 H Pulse Oximetry 92 L 92 L 10/27/17 08:00 10/27/17 12:00 Temperature 98.0 F 98.5 F Pulse Rate 79 88 Respiratory Rate 16 16 Blood Pressure 144/88 H 128/88 Pulse Oximetry 92 L 93 L Intake & Output 10/26/17 10/27/17 10/27/17 18:59 06:59 18:59 Intake Total 1200 / 1200 2080 / 2080 1350 / 1350 Output Total 200 / 200 240 / 240 Balance 1000 / 1000 1840 / 1840 1350 / 1350 Intake: IV 1200 / 1200 1720 / 1720 1350 / 1350 NS Inj 1,000 ML @ 100 mls/hr IV 1000 / 1000 1000 / 1000 1000 / 1000 .CONT .Q10H [facility] Rx#:[id number] Zosyn 4.5 GM Premix 4.5 gm In 200 / 200 200 / 200 100 / 100 100 ml @ 200 mls/hr IV.SIG Q6H [facility] Rx#:[id number] Vancomycin Inj 1,000 MG In NS 250 / 250 Inj 250 ML @ 250 mls/hr IV.SIG Q12H [facility] Rx#:[id number] Vancomycin Inj 2,000 MG In NS 520 / 520 Inj 500 ML @ 250 mls/hr IV.SIG ONCE ONE Rx#:[id number] Oral 360 / 360 Output: Urine 200 / 200 240 / 240 Other: # Voids 3 Date of Last Bowel Movement 10/23/17 10/23/17 Narrative: GENERAL: Pleasant middle-aged white male in no acute distress. SKIN: Focused skin assessment warm and dry. HEENT: PERRLA, EOMI. No scleral icterus or conjunctival pallor. No lid lag or facial droop. CARDIOVASCULAR: Regular rate and rhythm. No obvious murmurs to auscultation. No chest tenderness to palpation. Prior surgical scars noted. RESPIRATORY: No obvious rhonchi or wheezing. Clear to auscultation. Breath sounds equal bilaterally. GASTROINTESTINAL: Abdomen soft, non-tender, nondistended. BS normal. MUSCULOSKELETAL: Extremities without clubbing, cyanosis, or edema. No obvious deformities. Left flank/back tenderness to palpation and w/ movement. NEUROLOGICAL: Awake, alert and oriented x4. No focal neurologic deficits. Moving both upper and lower extremities spontaneously. PSYCHIATRIC: Appropriate mood and affect. Insight and judgment normal. Results - Labs CBC & Chem 7: 10/27/17 03:55 10/27/17 03:55 Laboratory Results - last 24 hr 10/27/17 10/27/17 03:55 03:55 WBC 8.7 RBC 4.37 L Hgb 13.9 Hct 41.1 MCV 94.1 MCH 31.9 MCHC 33.9 RDW 13.8 Plt Count 121 L MPV 8.5 Neut % (Auto) 80.6 H Lymph % (Auto) 8.1 L Callahan % (Auto) 11.0 H Eos % (Auto) 0.1 Baso % (Auto) 0.2 Neut # (Auto) 7.0 Lymph # (Auto) 0.7 L [place]ahan # (Auto) 1.0 H Eos # (Auto) 0.0 Baso # (Auto) 0.0 WBC Differential . Differential Comment Auto diff final Sodium 142 Potassium 3.7 Chloride 107 Carbon Dioxide 26.5 Anion Gap 9 BUN 11 Creatinine 1.08 Estimated GFR 69 L Random Glucose 104 Calcium 8.3 L Total Bilirubin 1.7 H AST 46 H ALT 64 Alkaline Phosphatase 179 H Total Protein 5.9 L Albumin 2.3 L Microbiology 10/26/17 02:20 Blood - Peripheral Aerobic Blood Culture - Preliminary Staphylococcus aureus 10/26/17 02:20 Blood - Peripheral Anaerobic Blood Culture - Preliminary Staphylococcus aureus 10/26/17 02:30 Blood - Peripheral Aerobic Blood Culture - Preliminary gram positive cocci 10/26/17 02:30 Blood - Peripheral Anaerobic Blood Culture - Preliminary gram positive cocci Assessment and Plan - Assessment (1) Psoas abscess, left Code(s): K68.12 - Psoas muscle abscess Status: Acute (2) Intractable pain Code(s): R52 - Pain, unspecified Status: Acute (3) Hypokalemia Code(s): E87.6 - Hypokalemia Status: Acute (4) Bacteremia due to Staphylococcus aureus Code(s): R78.81 - Bacteremia Status: Acute - Plan Patient is 62-year-old male with a past medical history of coronary artery disease, CABG 5, pacemaker and hyperlipidemia. He presented to the emergency room after 3 days of flank pain. He initially thought he had pulled a muscle while working in the yard. Bacteremia -Suspected left Psoas Abscess. Surgery consulted-planned I&D today -Cultures positive staph aureus-ID consulted -Morphine for pain; wean as soon as possible Hypokalemia: -K+ 3.3 -replaced and resolved DVT Prophylaxis: SCD/Teds Discussed with patient, nurse, Dr. Oliva
[2017-10-27 15:51] LABS: Activated Partial Thrombo Time 29.6 sec (24.3-30.1); Prothrombin Time 10.6 sec (9.8-11.6)
[2017-10-27] MEDS: ceFAZolin Inj 2,000 MG in Sodium Chlor 0.9% Inj 80 ML IV.SIG SCH (17:12)
--- NOTE | 2017-10-27 17:25 | ECHRPT ---
Indication: Acute and subacute endocarditis, unspecified CONCLUSIONS The left ventricular systolic function is low normal with an estimated ejection fraction in the rang e of 50- 55%. Normal left ventricular size and wall thickness. There is mild tricuspid valve regurgitation. The estimated pulmonary arterial pressure is 32.1 mmHg. Pacemaker Lead Present. No obvious vegetations are visible; however, this is a poor quality study. If the clinical suspicion remains high for Endocarditis, would recommend a RACHEL. BP: / HR: Rhythm: Sinus MEASUREMENTS (Male / Female) Normal Values Technical Quality:Technically difficult study, poo r quality images 2D ECHO LV Diastolic Diameter PLAX 4.9 cm 4.2 - 5.9 / 3.9 - 5.3 cm LV Systolic Diameter PLAX 3.8 cm IVS Diastolic Thickness 1.1 cm 0.6 - 1.0 / 0.6 - 0.9 cm LVPW Diastolic Thickness 1.1 cm 0.6 - 1.0 / 0.6 - 0.9 cm LV Relative Wall Thickness 0.4 LVOT Diameter 2.1 cm M-MODE Aortic Root Diameter MM 2.9 cm LA Systolic Diameter MM 4.0 cm LA Ao Ratio MM 1.4 AV Cusp Separation MM 2.0 cm DOPPLER AV Peak Velocity 121.0 cm/s AV Peak Gradient 5.9 mmHg LVOT Peak Velocity 66.1 cm/s LVOT Peak Gradient 1.7 mmHg AV Area Cont Eq pk 1.9 cm TR Peak Velocity 235.0 cm/s TR Peak Gradient 22.1 mmHg Right Atrial Pressure 10.0 mmHg Pulmonary Artery Systolic Pressu 32.1 mmHg Right Ventricular Systolic Press 32.1 mmHg PV Peak Velocity 130.0 cm/s PV Peak Gradient 6.8 mmHg FINDINGS LEFT VENTRICLE The left ventricular systolic function is low normal with an estimated ejection fraction in the rang e of 50- 55%. Wall thickness is measured at the upper limits of normal. Normal left ventricular size. Mild tricuspid regurgitation. RIGHT VENTRICLE Normal right ventricular size and systolic function. LEFT ATRIUM The left atrial size is normal. RIGHT ATRIUM The right atrial size is normal. ATRIAL SEPTUM Normal atrial septal thickness without atrial level shunting by limited color doppler interrogation. AORTA The aortic root and proximal ascending aorta are normal in size on limited imaging. MITRAL VALVE Structurally normal mitral valve. No mitral valve stenosis or regurgitation. AORTIC VALVE Trileaflet aortic valve. No aortic valve stenosis or regurgitation. TRICUSPID VALVE There is mild tricuspid valve regurgitation. The estimated pulmonary arterial pressure is 32.1 mmHg. PULMONARY VALVE Mild pulmonary valve regurgitation. VESSELS The inferior vena cava is normal in size. PERICARDIUM No pericardial effusion. Corinne Hansen MD (Electronically Signed) Final Date:27 October 2017 17:24
[2017-10-28] MEDS: ceFAZolin Inj 2,000 MG in Sodium Chlor 0.9% Inj 80 ML IV.SIG SCH ×3 (00:14→18:59)
[2017-10-28] MEDS: Morphine Sulfate Inj 2 MG/ML Vial IV.PUSH PRN ×2 (00:14→04:20)
[2017-10-28] MEDS ORDERED: Vancomycin Inj 1,500 MG in Sodium Chlor 0.9% Inj 500 ML IV.SIG SCH (05:00)
[2017-10-28] MEDS: Sod Chloride 0.9% Inj 1,000 ML IV.CONT SCH ×2 (05:44→18:47)
[2017-10-28 07:05] LABS: Baso % (Auto) 0.2 % (0.0-2.0); Eos # (Auto) 0.1 th/mm3 (0.0-0.4); Eos % (Auto) 0.5 % (0.0-4.0); Hematocrit 39.2 % (39.0-51.0); Hemoglobin 13.3 gm/dL (13.0-17.0); Lymph # (Auto) 0.9 th/mm3 (1.0-4.8); Lymph % (Auto) 9.7 % (9.0-44.0); Mean Corpuscular Hemoglobin 31.5 pg (27.0-34.0); Mean Corpuscular Volume 92.6 fL (80.0-100.0); Mean Platelet Volume 7.8 fL (7.0-11.0); Mono # (Auto) 1.4 th/mm3 (0.0-0.9); Mono % (Auto) 14.6 % (0.0-8.0); Neut # (Auto) 7.2 th/mm3 (1.8-7.7); Platelet Count 138 th/mm3 (150-450); Red Blood Count 4.23 mil/mm3 (4.50-5.90); Red Cell Distribution Width 13.8 % (11.6-17.2); White Blood Count 9.6 th/mm3 (4.0-11.0)
[2017-10-28 07:34] LABS: Chloride 107 meq/L (98-107); Potassium 3.1 meq/L (3.5-5.1); Sodium 142 meq/L (136-145)
[2017-10-28 07:41] LABS: Alanine Aminotransferase 55 U/L (12-78); Alkaline Phosphatase 192 U/L (45-117); Anion Gap 9 meq/L (5-15); Aspartate Aminotransferase 45 U/L (15-37); Blood Urea Nitrogen 10 mg/dL (7-18); Calcium 8.1 mg/dL (8.5-10.1); Carbon Dioxide 25.8 meq/L (21.0-32.0); Glomerular Filtration Rate Greater Than 89 mL/min (>89); Glucose,Random 95 mg/dL (74-106); Total Protein 5.7 g/dL (6.4-8.2)
[2017-10-28] MEDS ORDERED: Pharmacy Ordered Lab Info OTHER ONE (09:00)
--- NOTE | 2017-10-28 09:20 | P.PN ---
Subjective Interval history: Follow-up for left psoas abscess, bacteremia. Patient reports continued intractable 10/10 left flank and hip pain. He states he gets 30 minutes of mild relief after receiving IV morphine. He is requesting his pain medications be adjusted. He states he has not been able to sleep because of the pain. He denies any fevers, chills, or sweats. He states he has difficulty ambulating secondary to the pain. He is tolerating oral intake. Denies any nausea/ vomiting or diarrhea. He has no other medical complaints at this time. Physical Exam Vital signs: Vital Signs 10/27/17 12:00 10/27/17 16:00 10/27/17 19:57 Temperature 98.5 F 98.8 F Pulse Rate 88 94 H 86 Respiratory Rate 16 20 17 Blood Pressure 128/88 158/90 H 137/86 Pulse Oximetry 93 L 89 L 95 10/27/17 23:27 10/28/17 03:54 10/28/17 08:14 Temperature 98.8 F 98.7 F 98.0 F Pulse Rate 84 80 74 Respiratory Rate 17 18 20 Blood Pressure 156/99 H 150/92 H 157/90 H Pulse Oximetry 97 99 98 Intake & Output 10/27/17 10/28/17 10/28/17 18:59 06:59 18:59 Intake Total 1450 / 1450 1615 / 1615 Balance 1450 / 1450 1615 / 1615 Intake: IV 1450 / 1450 1615 / 1615 NS Inj 1,000 ML @ 100 mls/hr IV 1000 / 1000 1000 / 1000 .CONT .Q10H ROXY Rx#:[id number] Zosyn 4.5 GM Premix 4.5 gm In 100 / 100 100 ml @ 200 mls/hr IV.SIG Q6H ROXY Rx#:[id number] Vancomycin Inj 1,000 MG In NS 250 / 250 Inj 250 ML @ 250 mls/hr IV.SIG Q12H ROXY Rx#:[id number] Vancomycin Inj 1,500 MG In NS 515 / 515 Inj 500 ML @ 250 mls/hr IV.SIG Q24H ROXY Rx#:[id number] Ancef Inj 2,000 MG In NS Inj 80 100 / 100 100 / 100 ML @ 200 mls/hr IV.SIG Q8H ROXY Rx#:[id number] Other: # Voids 3 Date of Last Bowel Movement 10/23/17 Narrative: GENERAL: Well-nourished, well-developed middle-aged male patient in NAD. SKIN: Warm and dry. No rash. HEENT: Normocephalic. Atraumatic. Pupils equal and round. Mucous membranes pink and moist. CARDIOVASCULAR: Regular rate and rhythm. No murmur appreciated. RESPIRATORY: No accessory muscle use. Clear to auscultation. Breath sounds equal bilaterally. GASTROINTESTINAL: Abdomen soft, nondistended, diffuse left lower quadrant tenderness to palpation. Normoactive bowel sounds x4. MUSCULOSKELETAL: No obvious deformities. Extremities without clubbing, cyanosis , or edema. Left flank tender to palpation. Pain upon left hip flexion against resistance. NEUROLOGICAL: Awake and alert. No obvious cranial nerve deficits. Motor grossly within normal limits. Moving all extremities spontaneously. Normal speech. PSYCHIATRIC: Appropriate mood and affect; insight and judgment normal. Results - Labs CBC & Chem 7: 10/28/17 06:30 10/28/17 06:30 Laboratory Results - last 24 hr 10/27/17 10/28/17 10/28/17 15:13 06:30 06:30 WBC 9.6 RBC 4.23 L Hgb 13.3 Hct 39.2 MCV 92.6 MCH 31.5 MCHC 34.0 RDW 13.8 Plt Count 138 L MPV 7.8 Neut % (Auto) 75.0 H Lymph % (Auto) 9.7 Dare % (Auto) 14.6 H Eos % (Auto) 0.5 Baso % (Auto) 0.2 Neut # (Auto) 7.2 Lymph # (Auto) 0.9 L Dare # (Auto) 1.4 H Eos # (Auto) 0.1 Baso # (Auto) 0.0 WBC Differential . Differential Comment Auto diff final PT 10.6 INR 1.0 APTT 29.6 Sodium 142 Potassium 3.1 L Chloride 107 Carbon Dioxide 25.8 Anion Gap 9 BUN 10 Creatinine 0.82 Estimated GFR Greater than 89 Random Glucose 95 Calcium 8.1 L Total Bilirubin 1.2 H AST 45 H ALT 55 Alkaline Phosphatase 192 H Total Protein 5.7 L Albumin 2.0 L Microbiology 10/26/17 02:20 Blood - Peripheral Aerobic Blood Culture - Preliminary Staphylococcus aureus 10/26/17 02:20 Blood - Peripheral Anaerobic Blood Culture - Preliminary Staphylococcus aureus 10/26/17 02:30 Blood - Peripheral Aerobic Blood Culture - Preliminary gram positive cocci 10/26/17 02:30 Blood - Peripheral Anaerobic Blood Culture - Preliminary gram positive cocci - Imaging Abdomen/Pelvis CT 10/26/17 00:16 CONCLUSION: 1. Left psoas muscle is enlarged with surrounding inflammatory change and contains multiple foci of air consistent with phlegmonous change and developing psoas abscess. However, there is no significant focal drainable collection at this time. 2. Punctate 2 mm nonobstructing right renal calculus. 3. Normal appendix. Assessment and Plan - Assessment (1) Psoas abscess, left Code(s): K68.12 - Psoas muscle abscess Status: Acute (2) Intractable pain Code(s): R52 - Pain, unspecified Status: Acute (3) Hypokalemia Code(s): E87.6 - Hypokalemia Status: Acute (4) Bacteremia due to Staphylococcus aureus Code(s): R78.81 - Bacteremia Status: Acute - Plan 62-year-old male with a past medical history of CAD, CABG 5, pacemaker and hyperlipidemia. He presented to the emergency room after 3 days of flank pain. He initially thought he had pulled a muscle while working in the yard. Bacteremia, Left Psoas Abscess: acute -CT abd/pelvis reviewed, shows left psoas muscle is enlarged with surrounding inflammatory change and contains multiple foci of air consistent with phlegmonous change and developing psoas abscess. -Blood cultures 4/4 positive for staph aureus -Continue on IV Ancef and IV Vanco with pharmacy consult -ID consulted, appreciate assistance -General surgery consulted, no surgical intervention planned at this time -IR consulted for CT guided drainage of abscess -Cardiology consulted, plans for RACHEL today -Pain control with [place] prn, IV morphine prn breakthrough pain, Flexeril prn spasms Hypokalemia: K 3.3 -Given KCl replacement -Monitor BMP, replace electrolytes as needed CAD/CABG/HLD/HLD: chronic, no complaints of chest pain -continue home medications including metoprolol, statin, plavix -Monitor BP, adjust antihypertensives as needed DVT Prophylaxis: SCD/Teds; avoid further anticoagulation with upcoming procedure Discharge Planning: Going for CT guided abscess drainage today and RACHEL today. Further disposition to follow. Await cultures and further clinical improvement.
[2017-10-28] MEDS: Senna/Docusate Sodium 8.6/50 MG Tablet PO SCH ×2 (11:30→20:36)
[2017-10-28] MEDS: Furosemide 40 MG Tablet PO SCH (11:31)
[2017-10-28] MEDS: Amiodarone 200 MG Tablet PO SCH (11:31)
--- NOTE | 2017-10-28 12:14 | CT ---
EXAM DATE: 10/28/2017 10:17 AM EDT AGE/SEX: 62 years / Male INDICATIONS: Left psoas muscle abscess. COMPARISON: No prior exams available for comparison. FINDINGS: Consult was placed by infectious disease for drain placement in the left psoas for possible abscess. The patient's most recent CT scan of the abdomen from 10/26/2017 was reviewed. This showed some enlarg ement of the left psoas with a few dots of air but no definable fluid collection that would be amenab le to percutaneous drainage. In addition, the patient is on Plavix therapy. This will need to be stop ped before drain placement is considered in the near future. CONCLUSION: 1. A few dots of air identified in the enlarged left psoas with no obvious drainable fluid collectio n. Findings may represent an inflammatory phlegmon which could develop into an abscess over the next few days. 2. In addition, the patient was on Plavix therapy. His last dose was administered yesterday. This wi ll have to be held for at least 3 days prior to any intervention. 3. Discussed with Dr. Demarco from infectious disease at the time of this dictation. Electronically signed by: Teddy Zhu MD 10/28/2017 12:13 PM EDT
--- NOTE | 2017-10-28 13:10 | P.PNID ---
Subjective Remarks: Patient is a 62-year-old male, presented to the hospital complaining of 4-5 day history of left-sided flank pain. He was apparently working in the yard, pulling weeds and he was doing this for 2 days. About 4 days prior to admission he started experiencing left-sided flank, side pain and the pain was quite severe that he was not able to do much. He denies any fever chills or sweats. He has not had any nausea or vomiting. He has not had any problem with his bowels. He has been voiding without any problem. Patient has not had any treatment for any infection in the last several months. On presentation he has had some low-grade temps. His WBC is normal. CT of the abdomen and pelvis showing asymmetry in his psoas muscle with the left being big and there are some foci of gas. There is no other abnormality seen. Blood cultures done on admission are now reported as growing gram-positive cocci in clusters. His urinalysis is unremarkable. Patient has known coronary artery disease and had undergone CABG in 2016. He stated that his pacemaker was placed about a year before his CABG. This was done in [place]. Patient has not had any follow-up with any email deployment specialist. Infectious disease consultation has been requested to evaluate the patient with positive blood culture. Patient still complaining of significant pain in the left flank. Notes reviewed Afebrile Still with pain I spoke with Dr Zhu yesterday - repeat CT late this week and reassess if able to drain Antibiotics: Ancef Vancomycin Lines: PIV Past Medical History: Coronary artery disease High cholesterol Pacemaker Hx of CABG Allergies/Adverse Reactions: Allergies No Known Allergies Allergy (Unverified 10/25/17 22:42) Objective Vital Signs 10/27/17 16:00 10/27/17 19:57 10/27/17 23:27 Temperature 98.8 F 98.8 F Pulse Rate 94 H 86 84 Respiratory Rate 20 17 17 Blood Pressure 158/90 H 137/86 156/99 H Pulse Oximetry 89 L 95 97 10/28/17 03:54 10/28/17 08:14 10/28/17 11:55 Temperature 98.7 F 98.0 F 98.4 F Pulse Rate 80 74 80 Respiratory Rate 18 20 18 Blood Pressure 150/92 H 157/90 H 166/89 H Pulse Oximetry 99 98 99 Intake & Output 10/27/17 10/28/17 10/28/17 18:59 06:59 18:59 Intake Total 1450 / 1450 1615 / 1615 1000 / 1000 Balance 1450 / 1450 1615 / 1615 1000 / 1000 Intake: IV 1450 / 1450 1615 / 1615 1000 / 1000 NS Inj 1,000 ML @ 100 mls/hr IV 1000 / 1000 1000 / 1000 1000 / 1000 .CONT .Q10H ROXY Rx#:[id number] Zosyn 4.5 GM Premix 4.5 gm In 100 / 100 100 ml @ 200 mls/hr IV.SIG Q6H ROXY Rx#:[id number] Vancomycin Inj 1,000 MG In NS 250 / 250 Inj 250 ML @ 250 mls/hr IV.SIG Q12H ROXY Rx#:[id number] Vancomycin Inj 1,500 MG In NS 515 / 515 Inj 500 ML @ 250 mls/hr IV.SIG Q24H ROXY Rx#:[id number] Ancef Inj 2,000 MG In NS Inj 80 100 / 100 100 / 100 ML @ 200 mls/hr IV.SIG Q8H ROXY Rx#:[id number] Other: # Voids 3 Date of Last Bowel Movement 10/23/17 10/26/17 02:20 Blood - Peripheral Aerobic Blood Culture - Preliminary Staphylococcus aureus 10/26/17 02:20 Blood - Peripheral Anaerobic Blood Culture - Final Staphylococcus aureus 10/26/17 02:30 Blood - Peripheral Aerobic Blood Culture - Final Staphylococcus aureus 10/26/17 02:30 Blood - Peripheral Anaerobic Blood Culture - Preliminary Staphylococcus aureus 10/27/17 20:50 Blood - Peripheral Aerobic Blood Culture - Preliminary No growth in 1 day 10/27/17 20:50 Blood - Peripheral Anaerobic Blood Culture - Preliminary No growth in 1 day 10/27/17 20:15 Blood - Peripheral Aerobic Blood Culture - Preliminary No growth in 1 day 10/27/17 20:15 Blood - Peripheral Anaerobic Blood Culture - Preliminary No growth in 1 day Lab - Hematology Results 10/27/17 10/28/17 03:55 06:30 WBC 8.7 9.6 RBC 4.37 L 4.23 L Hgb 13.9 13.3 Hct 41.1 39.2 MCV 94.1 92.6 MCH 31.9 31.5 MCHC 33.9 34.0 RDW 13.8 13.8 Plt Count 121 L 138 L MPV 8.5 7.8 Neut % (Auto) 80.6 H 75.0 H Lymph % (Auto) 8.1 L 9.7 [place] % (Auto) 11.0 H 14.6 H Eos % (Auto) 0.1 0.5 Baso % (Auto) 0.2 0.2 Neut # (Auto) 7.0 7.2 Lymph # (Auto) 0.7 L 0.9 L [place] # (Auto) 1.0 H 1.4 H Eos # (Auto) 0.0 0.1 Baso # (Auto) 0.0 0.0 WBC Differential . . Differential Comment Auto diff final Auto diff final Lab - Chemistry Results 10/27/17 10/28/17 03:55 06:30 Sodium 142 142 Potassium 3.7 3.1 L Chloride 107 107 Carbon Dioxide 26.5 25.8 Anion Gap 9 9 BUN 11 10 Creatinine 1.08 0.82 Estimated GFR 69 L Greater than 89 Random Glucose 104 95 Calcium 8.3 L 8.1 L Total Bilirubin 1.7 H 1.2 H AST 46 H 45 H ALT 64 55 Alkaline Phosphatase 179 H 192 H Total Protein 5.9 L 5.7 L Albumin 2.3 L 2.0 L Imaging: ITS Impressions Abdomen/Pelvis CT 10/26/17 00:16 CONCLUSION: 1. Left psoas muscle is enlarged with surrounding inflammatory change and contains multiple foci of air consistent with phlegmonous change and developing psoas abscess. However, there is no significant focal drainable collection at this time. 2. Punctate 2 mm nonobstructing right renal calculus. 3. Normal appendix. CT Consultation 10/28/17 00:00 CONCLUSION: 1. A few dots of air identified in the enlarged left psoas with no obvious drainable fluid collection. Findings may represent an inflammatory phlegmon which could develop into an abscess over the next few days. 2. In addition, the patient was on Plavix therapy. His last dose was administered yesterday. This will have to be held for at least 3 days prior to any intervention. 3. Discussed with Dr. Demarco from infectious disease at the time of this dictation. Physical Exam: GENERAL: awake and alert, not in respiratory distress. SKIN: Warm and dry. No generalized rash, no ecchymoses and no evidence of embolic lesions. HEAD: Atraumatic. Normocephalic. No temporal wasting, or tenderness. EYES: [place] conjunctiva. No petechia or hemorrhage. Pupils equal, round and reactive to light. Extraocular movements full and intact. No scleral icterus. No injection or drainage. EARS, NOSE AND THROAT: Nose without bleeding or purulent nasal discharge. No sinus tenderness. Mucous membranes pink and moist. No oral lesions noted. No exudate. No oral thrush. NECK: Trachea midline. Supple and not tender, no meningeal signs CARDIOVASCULAR: Regular rate and rhythm. No murmurs, rubs or gallops heard. Pacemaker in L upper chest with no evidence of infection RESPIRATORY: Clear to auscultation. Breath sounds equal bilaterally. No rales , wheezing or rhonchi ABDOMEN: Soft, nondistended, with tenderness in LLQ. Bowel sounds present and normoactive. No guarding. No rebound. No organomegaly. EXTREMITIES: No clubbing, cyanosis, or edema. No joint effusion, has good ROM. No calf tenderness. Well perfused and warm. NEUROLOGICAL: Awake and alert. Cranial nerves grossly intact. Motor grossly within normal limits. PSYCHIATRIC: Normal affect, calm and cooperative. LINE: No evidence of infection Assessment and Plan - Plan Impression Staph aureus sepsis, worrisome foe endovascular focus, IE, pacer L psoas fluid collection likely abscess, hematogenous spread S/P CABG 2015 S/P Pacemaker 2014 Recommendation Consult cardiology for RACHEL - TTE not a good study Repeat BC to document clearing Repeat imaging studies Thurs to evaluate if amenable for drainage Continue IV Ancef Continue IV Vanco Follow C/S and adjust Abx I will determine course of Abx once work-up is completed Monitor progress
--- NOTE | 2017-10-28 14:17 | P.CONCA ---
History of Present Illness Service: Cardiology Consult date: 10/28/17 Requesting Physician: Jade Demarco Reason for Consult: Eval for Ezekiel has sepsis and has pacemaker Primary Care Provider: No Primary Care Physician History of Present Illness: This is a 62-year-old male with a history of HTN, hyperlipidemia, pacemaker, CAD s/p CABG. He never followed up with cardiology post CABG. He presented to the Emergency Department with sever left sided lower back pain for 3-4 days. He stated he was out pulling weeds 4 days ago and started to develop left sided lower back pain. He states that he has been in bed since then due to the pain. He denies any fever or chills. The pain is 10/10 with movement and palpation. DT abdomen/pelvis left psoas muscle enlarged with surrounding inflammatory changes and multiple foci of air consistent with early abscess. He denies any chest pain, pressure, palpitations, dizziness, edema or SOB. Review of Systems All other systems reviewed negative except as stated in HPI PMFSH - History History Provided By: Patient - Medical History Medical History: Medical History (Last Reviewed 10/27/17 @ 14:47 by Jade Demarco MD) Coronary artery disease High cholesterol Pacemaker - Surgical History Surgical History: Surgical History (Last Reviewed 10/27/17 @ 14:47 by Jade Demarco MD) Hx of CABG - Tobacco History Second Hand Smoke Exposure: No Smoking Status: Never smoker - Alcohol History How Often Do You Have a Drink Containing Alcohol: Never - Substance Use History Substance History: No History of Abuse - Travel History Recent Travel in the [place] Within the Last 8 Weeks: No Recent Travel Out of the Country Within the Last 8 Weeks: No - Immunization History Tetanus Immunization: Unsure Hx Influenza Vaccine This Season: No Medications and Allergies Allergies Allergy/AdvReac Type Severity Reaction Status Date / Time No Known Allergies Allergy Unverified 10/25/17 22:42 Home Medications Medication Instructions Recorded Confirmed Type amiodarone 200 mg PO DAILY 10/26/17 10/26/17 History atorvastatin 40 mg PO DAILY 10/26/17 10/26/17 History clopidogrel 75 mg PO DAILY 10/26/17 10/26/17 History furosemide 40 mg PO DAILY 10/26/17 10/26/17 History levothyroxine 25 mcg PO DAILY 10/26/17 10/26/17 History meloxicam 7.5 mg PO BID 10/26/17 10/26/17 History metoprolol succinate 25 mg PO DAILY 10/26/17 10/26/17 History Active Medications: Active Medications Acetaminophen (Tylenol) 650 mg PO Q4H PRN PRN Reason: Temp > 100.4/LAURA Hydrocodone Bitart/Acetaminophen ([place] 5/325) 1 tab PO Q6H PRN PRN Reason: pain scale 3-6 Hydrocodone Bitart/Acetaminophen ([place] 7.5/325) 1 tab PO Q6H PRN PRN Reason: pain scale 7-10 Al Hydroxide/Mg Hydroxide (Milk Of Magnesia Liq) 30 ml PO Q12H PRN PRN Reason: Mild Constipation Amiodarone HCl (Cordarone) 200 mg PO DAILY [facility] Last Admin: 10/28/17 11:31 Dose: 200 mg Atorvastatin Calcium (Lipitor) 40 mg PO DAILY [facility] Last Admin: 10/28/17 11:29 Dose: 40 mg Bisacodyl (Dulcolax Supp) 10 mg RECTAL DAILY PRN PRN Reason: SEVERE CONSITIPATION Clopidogrel Bisulfate (Plavix) 75 mg PO DAILY [facility] Cyclobenzaprine HCl (Flexeril) 5 mg PO Q8H PRN PRN Reason: muscle spasms Furosemide (Lasix) 40 mg PO DAILY [facility] Last Admin: 10/28/17 11:31 Dose: 40 mg Sodium Chloride (Ns Inj) 1,000 mls @ 0 mls/hr IV.SIG BOLUS [facility] Last Infusion: 10/26/17 00:04 Dose: Infused Sodium Chloride (Ns Inj) 1,000 mls @ 100 mls/hr IV.CONT .Q10H [facility] Last Infusion: 10/28/17 11:47 Dose: Infused Cefazolin Sodium 2,000 mg/ (Sodium Chloride) 100 mls @ 200 mls/hr IV.SIG Q8H [facility] Last Infusion: 10/28/17 13:31 Dose: Infused Vancomycin HCl 1,500 mg/ (Sodium Chloride) 515 mls @ 250 mls/hr IV.SIG Q12H [facility] Lactulose (Lactulose Liq) 30 ml PO DAILY PRN PRN Reason: SEVERE CONSITIPATION Levothyroxine Sodium (Synthroid) 25 mcg PO DAILY@0600 [facility] Last Admin: 10/28/17 05:38 Dose: 25 mcg Metoprolol Succinate (Toprol Xl) 25 mg PO DAILY [facility] Last Admin: 10/28/17 11:29 Dose: 25 mg Miscellaneous Information ([facility] Ordered Lab Info) 0 each OTHER ONCE ONE Stop: 10/29/17 16:46 Morphine Sulfate (Morphine Inj) 2 mg IV.PUSH Q3H PRN PRN Reason: BREAKTHROUGH PAIN Ondansetron HCl (Zofran Inj) 4 mg IV.PUSH Q6H PRN PRN Reason: NAUSEA OR VOMITING Pharmacy Profile Note (Vancomycin Consult Pharmacy) 1 each OTHER UNSCH PRN PRN Reason: Pharmacy to dose Senna/Docusate Sodium (Ana Paula-Colace) 1 tab PO BID [facility] Last Admin: 10/28/17 11:30 Dose: 1 tab Sennosides (Senokot) 17.2 mg PO Q12H PRN PRN Reason: Moderate Constipation Exam Vital signs: Vital Signs 10/27/17 16:00 10/27/17 19:57 10/27/17 23:27 Temperature 98.8 F 98.8 F Pulse Rate 94 H 86 84 Respiratory Rate 20 17 17 Blood Pressure 158/90 H 137/86 156/99 H Pulse Oximetry 89 L 95 97 10/28/17 03:54 10/28/17 08:14 10/28/17 11:55 Temperature 98.7 F 98.0 F 98.4 F Pulse Rate 80 74 80 Respiratory Rate 18 20 18 Blood Pressure 150/92 H 157/90 H 166/89 H Pulse Oximetry 99 98 99 Intake & Output 10/27/17 10/28/17 10/28/17 18:59 06:59 18:59 Intake Total 1450 / 1450 1615 / 1615 1100 / 1100 Balance 1450 / 1450 1615 / 1615 1100 / 1100 Intake: IV 1450 / 1450 1615 / 1615 1100 / 1100 NS Inj 1,000 ML @ 100 mls/hr IV 1000 / 1000 1000 / 1000 1000 / 1000 .CONT .Q10H [facility] Rx#:[id number] Zosyn 4.5 GM Premix 4.5 gm In 100 / 100 100 ml @ 200 mls/hr IV.SIG Q6H [facility] Rx#:[id number] Vancomycin Inj 1,000 MG In NS 250 / 250 Inj 250 ML @ 250 mls/hr IV.SIG Q12H [facility] Rx#:[id number] Vancomycin Inj 1,500 MG In NS 515 / 515 Inj 500 ML @ 250 mls/hr IV.SIG Q24H [facility] Rx#:[id number] Ancef Inj 2,000 MG In NS Inj 80 100 / 100 100 / 100 100 / 100 ML @ 200 mls/hr IV.SIG Q8H [facility] Rx#:[id number] Other: # Voids 3 Date of Last Bowel Movement 10/23/17 - Constitutional mild distress - Routine HEENT Exam Head: Present: normocephalic Eye: Present: PERRL ENT: Present: mucous membranes moist - Routine Neck Exam Present: supple - Routine Respiratory Exam Present: CTA bilaterally - Routine Cardiovascular Exam Present: S1, S2. Absent: murmur, gallop, rubs - Routine Abdominal Exam Present: normoactive bowel sounds - Routine Extremities Exam Present: full ROM, pulses intact, normal capillary refill. Absent: cyanosis, clubbing, edema - Routine Skin Exam Present: intact - Routine Neurological Exam Present: oriented X3 Results 10/28/17 06:30 10/28/17 06:30 Cardiac Enzymes 10/28/17 Range/Units 06:30 AST 45 H (15-37) U/L Coagulation 10/27/17 Range/Units 15:13 PT 10.6 (9.8-11.6) sec APTT 29.6 (24.3-30.1) sec CBC 10/28/17 Range/Units 06:30 WBC 9.6 (4.0-11.0) th/mm3 RBC 4.23 L (4.50-5.90) mil/mm3 Hgb 13.3 (13.0-17.0) gm/dL Hct 39.2 (39.0-51.0) % Plt Count 138 L (150-450) th/mm3 Neut # (Auto) 7.2 (1.8-7.7) th/mm3 Lymph # (Auto) 0.9 L (1.0-4.8) th/mm3 [place] # (Auto) 1.4 H (0.0-0.9) th/mm3 Eos # (Auto) 0.1 (0.0-0.4) th/mm3 Baso # (Auto) 0.0 (0.0-0.2) th/mm3 Comprehensive Metabolic Panel 10/28/17 Range/Units 06:30 Sodium 142 (136-145) meq/L Potassium 3.1 L (3.5-5.1) meq/L Chloride 107 (98-107) meq/L Carbon Dioxide 25.8 (21.0-32.0) meq/L BUN 10 (7-18) mg/dL Creatinine 0.82 (0.60-1.30) mg/dL Calcium 8.1 L (8.5-10.1) mg/dL AST 45 H (15-37) U/L ALT 55 (12-78) U/L Alkaline Phosphatase 192 H (45-117) U/L Total Protein 5.7 L (6.4-8.2) g/dL Albumin 2.0 L (3.4-5.0) g/dL Intake and Output 10/27/17 10/28/17 10/28/17 22:59 06:59 14:59 Intake Total 1100 / 1100 615 / 615 1100 / 1100 Balance 1100 / 1100 615 / 615 1100 / 1100 Intake: IV 1100 / 1100 615 / 615 1100 / 1100 NS Inj 1,000 ML @ 100 mls/hr IV 1000 / 1000 1000 / 1000 .CONT .Q10H [facility] Rx#:[id number] Vancomycin Inj 1,500 MG In NS 515 / 515 Inj 500 ML @ 250 mls/hr IV.SIG Q24H [facility] Rx#:[id number] Ancef Inj 2,000 MG In NS Inj 80 100 / 100 100 / 100 100 / 100 ML @ 200 mls/hr IV.SIG Q8H [facility] Rx#:[id number] Other: # Voids 3 Assessment and Plan - Assessment (1) Bacteremia due to Staphylococcus aureus Code(s): R78.81 - Bacteremia Status: Acute (2) Bacteremia Code(s): R78.81 - Bacteremia Status: Acute (3) Psoas abscess, left Code(s): K68.12 - Psoas muscle abscess Status: Acute (4) Calculus, renal Code(s): N20.0 - Calculus of kidney Status: Acute (5) Acute flank pain Code(s): R10.9 - Unspecified abdominal pain Status: Acute (6) Intractable pain Code(s): R52 - Pain, unspecified Status: Acute (7) Hypokalemia Code(s): E87.6 - Hypokalemia Status: Acute - Plan Patient being evaluated by ID for sepsis. Ezekiel to evaluate LV function and assess for growth on the valves. Discussed with patient the reason for EZEKIEL, benefits and possible injury to the throat. Have consents signed for EZEKIEL. Will follow during hospitalization. The patient was seen and evaluated by Dr. Araujo who participated in care, management and decision making. - Attending Attestation Patient seen and examined. I reviewed and agree with the evaluation and plan as presented. Proceed with EZEKIEL today. Continue tx with antibiotics as per ID.
[2017-10-28] MEDS ORDERED: Metoprolol Tartrate 25 MG Tablet PO SCH (14:40)
[2017-10-28] MEDS ORDERED: Chlorhexidine Gluconate 2% 1 Pack (2 Cloths) TOPICAL SCH (14:40)
[2017-10-28] MEDS ORDERED: Sodium Chlor 0.9% Inj 500 ML IV.SIG SCH (15:00)
--- NOTE | 2017-10-28 15:08 | CF ---
cc: Eze Araujo MD DATE: 10/28/2017 INDICATION: Staphylococcus aureus sepsis, evaluation for endocarditis, left psoas abscess. PROCEDURE PERFORMED: Transesophageal echocardiogram. PROCEDURE: After the patient was sedated by Anesthesia, transesophageal probe was placed without difficulties; tomographic images were obtained. Left ventricular function was preserved with estimated ejection fraction 55% with no segmental wall motion abnormalities. Aortic valve was structurally normal. There is no evidence of aortic stenosis or regurgitation. There are no aortic valve vegetations. Mitral valve is structurally normal. There is no evidence of mitral stenosis. There is no evidence of mitral valve vegetations. There was evidence of trace mitral regurgitation. There was no evidence of mitral valve vegetations. Tricuspid valve was visualized. There was evidence of mild tricuspid regurgitation. No evidence of tricuspid stenosis. There was no evidence of tricuspid valve vegetations. There was no evidence of pulmonary valve vegetations. There was no evidence of pulmonary stenosis or regurgitation. Left atrial appendage was visualized and there was no evidence of left atrial thrombus. There was evidence of pacemaker lead in the right heart. There is no evidence of lead vegetations. Bubble study was performed and there was no evidence of [id number] shunt. The descending thoracic aorta had no significant plaque. DIAGNOSES: 1. No evidence of valvular vegetations. 2. No evidence of pacemaker lead vegetations. 3. Overall preserved left ventricular systolic function. 4. Trace mitral regurgitation . 5. Mild tricuspid regurgitation. IMPRESSION: No evidence of endocarditis. Eze Araujo MD OQ/julianne , 02:29 PM , 02:39 PM [facility]
--- NOTE | 2017-10-28 18:48 | P.PNGS ---
Subjective Interval history: Back from RACHEL Going for CT guided drainage Physical Exam Vital signs: Vital Signs 10/27/17 19:57 10/27/17 23:27 10/28/17 03:54 Temperature 98.8 F 98.7 F Pulse Rate 86 84 80 Respiratory Rate 18 Blood Pressure 137/86 156/99 H 150/92 H Pulse Oximetry 95 97 99 10/28/17 08:14 10/28/17 11:55 10/28/17 16:17 Temperature 98.0 F 98.4 F 98.0 F Pulse Rate 74 80 75 Respiratory Rate 18 Blood Pressure 157/90 H 166/89 H 177/96 H Pulse Oximetry 98 99 98 Intake & Output 10/27/17 10/28/17 10/28/17 18:59 06:59 18:59 Intake Total 1450 / 1450 1615 / 1615 1100 / 1100 Output Total 200 / 200 Balance 1450 / 1450 1615 / 1615 900 / 900 Intake: IV 1450 / 1450 1615 / 1615 1100 / 1100 NS Inj 1,000 ML @ 100 mls/hr IV 1000 / 1000 1000 / 1000 1000 / 1000 .CONT .Q10H [facility] Rx#:[id number] Zosyn 4.5 GM Premix 4.5 gm In 100 / 100 100 ml @ 200 mls/hr IV.SIG Q6H [facility] Rx#:[id number] Vancomycin Inj 1,000 MG In NS 250 / 250 Inj 250 ML @ 250 mls/hr IV.SIG Q12H [facility] Rx#:[id number] Vancomycin Inj 1,500 MG In NS 515 / 515 Inj 500 ML @ 250 mls/hr IV.SIG Q24H [facility] Rx#:[id number] Ancef Inj 2,000 MG In NS Inj 80 100 / 100 100 / 100 100 / 100 ML @ 200 mls/hr IV.SIG Q8H [facility] Rx#:[id number] Output: Urine 200 / 200 Other: # Voids 3 Date of Last Bowel Movement 10/23/17 Narrative: Alert and awake continues to have LEFT flank pain Results - Labs 11/10/17 05:18 11/11/17 07:52 Assessment and Plan - Assessment (1) Psoas abscess, left Code(s): K68.12 - Psoas muscle abscess Status: Acute Plan: 62 year old male with LEFT psoas muscle abscess -ID following---s/p RACHEL and plan for CT guided drainage -Afebrile -WBC normal -Pain about the same as yesterday Still painful; await CT guided drainage, as this is best approach The exam, history, and the medical decision-making described in the above note were completed with the assistance of the mid-level provider. I reviewed and agree with the findings presented. I attest that I had a [id number] encounter with the patient on the same day, and personally performed and documented my assessment and findings in the medical record. (2) Acute flank pain Code(s): R10.9 - Unspecified abdominal pain Status: Acute
[2017-10-28] MEDS: Vancomycin Inj 1,500 MG in Sodium Chlor 0.9% Inj 500 ML IV.SIG SCH (19:44)
[2017-10-28] MEDS: Lisinopril 10 MG Tablet PO SCH (20:03)
[2017-10-29] MEDS: ceFAZolin Inj 2,000 MG in Sodium Chlor 0.9% Inj 80 ML IV.SIG SCH ×4 (00:02→23:54)
[2017-10-29] MEDS: Sod Chloride 0.9% Inj 1,000 ML IV.CONT SCH ×3 (01:34→23:01)
[2017-10-29] MEDS: Morphine Sulfate Inj 2 MG/ML Vial IV.PUSH PRN ×4 (03:20→22:56)
[2017-10-29] MEDS: Vancomycin Inj 1,500 MG in Sodium Chlor 0.9% Inj 500 ML IV.SIG SCH (05:08)
[2017-10-29] MEDS: Lisinopril 10 MG Tablet PO SCH (08:33)
[2017-10-29] MEDS: Senna/Docusate Sodium 8.6/50 MG Tablet PO SCH ×2 (08:33→21:13)
[2017-10-29] MEDS: Amiodarone 200 MG Tablet PO SCH (08:33)
[2017-10-29] MEDS: Furosemide 40 MG Tablet PO SCH (08:47)
--- NOTE | 2017-10-29 10:07 | P.PN ---
Subjective Interval history: Follow-up for left psoas abscess, bacteremia. Patient reports continued left hip and flank pain with some radiation to the left lower back. He believes the pain is getting worse compared to yesterday. He rates his pain as a 10 out of 10. He states he actually got better relief with the Flexeril and would like to continue this. He reports difficulty ambulating secondary to the pain although denies weakness of the left leg. He denies fevers but does report occasional chills. He denies any chest pain or shortness of breath. Denies any other medical complaints at this time. Physical Exam Vital signs: Vital Signs 10/28/17 11:55 10/28/17 16:17 10/28/17 20:00 Temperature 98.4 F 98.0 F 98.2 F Pulse Rate 80 75 84 Respiratory Rate 18 18 20 Blood Pressure 166/89 H 177/96 H 121/68 Pulse Oximetry 99 98 92 L 10/29/17 00:00 10/29/17 04:00 10/29/17 08:11 Temperature 98.1 F 98.3 F 98.1 F Pulse Rate 83 68 71 Respiratory Rate 16 16 20 Blood Pressure 154/93 H 175/102 H 161/94 H Pulse Oximetry 95 95 93 L Intake & Output 10/28/17 10/29/17 10/29/17 18:59 06:59 18:59 Intake Total 1100 / 1100 715 / 715 615 / 615 Output Total 200 / 200 225 / 225 Balance 900 / 900 490 / 490 615 / 615 Intake: IV 1100 / 1100 715 / 715 615 / 615 NS Inj 1,000 ML @ 100 mls/hr IV 1000 / 1000 .CONT .Q10H [facility] Rx#:[id number] Vancomycin Inj 1,500 MG In NS 515 / 515 515 / 515 Inj 500 ML @ 250 mls/hr IV.SIG Q12H [facility] Rx#:[id number] Ancef Inj 2,000 MG In NS Inj 80 100 / 100 200 / 200 100 / 100 ML @ 200 mls/hr IV.SIG Q8H [facility] Rx#:[id number] Output: Urine 200 / 200 225 / 225 Narrative: GENERAL: Well-nourished, well-developed middle-aged male patient in [facility]. SKIN: Warm and dry. No rash. HEENT: Normocephalic. Atraumatic. Pupils equal and round. Mucous membranes pink and moist. CARDIOVASCULAR: Regular rate and rhythm. No murmur appreciated. RESPIRATORY: No accessory muscle use. Clear to auscultation. Breath sounds equal bilaterally. GASTROINTESTINAL: Abdomen soft, nondistended, diffuse left lower quadrant tenderness to palpation. Normoactive bowel sounds x4. MUSCULOSKELETAL: No obvious deformities. Extremities without clubbing, cyanosis , or edema. Left flank tender to palpation. Pain upon left hip flexion against resistance. NEUROLOGICAL: Awake and alert. No obvious cranial nerve deficits. Motor grossly within normal limits. Moving all extremities spontaneously. Normal speech. PSYCHIATRIC: Appropriate mood and affect; insight and judgment normal. Results - Labs CBC & Chem 7: 10/28/17 06:30 10/28/17 06:30 Microbiology 10/27/17 20:15 Blood - Peripheral Aerobic Blood Culture - Final Staphylococcus aureus 10/27/17 20:15 Blood - Peripheral Anaerobic Blood Culture - Preliminary No growth in 1 day 10/26/17 02:30 Blood - Peripheral Aerobic Blood Culture - Final Staphylococcus aureus 10/26/17 02:30 Blood - Peripheral Anaerobic Blood Culture - Final Staphylococcus aureus 10/27/17 20:50 Blood - Peripheral Aerobic Blood Culture - Preliminary gram positive cocci 10/27/17 20:50 Blood - Peripheral Anaerobic Blood Culture - Preliminary No growth in 1 day 10/26/17 02:20 Blood - Peripheral Aerobic Blood Culture - Final Staphylococcus aureus 10/26/17 02:20 Blood - Peripheral Anaerobic Blood Culture - Final Staphylococcus aureus - Imaging Impressions CT Consultation 10/28/17 00:00 CONCLUSION: 1. A few dots of air identified in the enlarged left psoas with no obvious drainable fluid collection. Findings may represent an inflammatory phlegmon which could develop into an abscess over the next few days. 2. In addition, the patient was on Plavix therapy. His last dose was administered yesterday. This will have to be held for at least 3 days prior to any intervention. 3. Discussed with Dr. Demarco from infectious disease at the time of this dictation. - Procedures 10/28/17- RACHEL Assessment and Plan - Assessment (1) Psoas abscess, left Code(s): K68.12 - Psoas muscle abscess Status: Acute (2) Intractable pain Code(s): R52 - Pain, unspecified Status: Acute (3) Hypokalemia Code(s): E87.6 - Hypokalemia Status: Acute (4) Bacteremia due to Staphylococcus aureus Code(s): R78.81 - Bacteremia Status: Acute - Plan 62-year-old male with a past medical history of CAD, CABG 5, pacemaker and hyperlipidemia. He presented to the emergency room after 3 days of flank pain. He initially thought he had pulled a muscle while working in the yard. Bacteremia, Left Psoas Abscess: acute -CT abd/pelvis reviewed, shows left psoas muscle is enlarged with surrounding inflammatory change and contains multiple foci of air consistent with phlegmonous change and developing psoas abscess. -Blood cultures 10/26 4/4 positive for staph aureus; and repeat 10/27 with 2/4 gram positive cocci -Continue on IV Ancef -ID consulted, appreciate assistance -General surgery consulted, no surgical intervention planned at this time -IR consulted for CT guided drainage of abscess, currently not enough fluid to drain -Cardiology consulted, s/p RACHEL 10/28, no evidence of valvular vegetations or pacemaker lead vegetations; preserved EF -Pain control with Ravenel prn, IV morphine prn breakthrough pain, Flexeril prn spasms -Per ID, plan to repeat imaging tomorrow Hypokalemia: K 3.1 -Given KCl replacement -Monitor BMP, replace electrolytes as needed CAD/CABG/HLD/HLD: chronic, no complaints of chest pain -continue home medications including metoprolol, statin, plavix -Monitor BP, adjust antihypertensives as needed DVT Prophylaxis: SCD/Teds; avoid further anticoagulation with possible upcoming procedure Discharge Planning: Discharge pending further clinical improvement. Planning for repeat imaging tomorrow. Further disposition to follow.
--- NOTE | 2017-10-29 10:49 | P.PNID ---
Subjective Remarks: Patient is a 62-year-old male, presented to the hospital complaining of 4-5 day history of left-sided flank pain. He was apparently working in the yard, pulling weeds and he was doing this for 2 days. About 4 days prior to admission he started experiencing left-sided flank, side pain and the pain was quite severe that he was not able to do much. He denies any fever chills or sweats. He has not had any nausea or vomiting. He has not had any problem with his bowels. He has been voiding without any problem. Patient has not had any treatment for any infection in the last several months. On presentation he has had some low-grade temps. His WBC is normal. CT of the abdomen and pelvis showing asymmetry in his psoas muscle with the left being big and there are some foci of gas. There is no other abnormality seen. Blood cultures done on admission are now reported as growing gram-positive cocci in clusters. His urinalysis is unremarkable. Patient has known coronary artery disease and had undergone CABG in 2016. He stated that his pacemaker was placed about a year before his CABG. This was done in [place]. 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 Infectious disease consultation has been requested to evaluate the patient with positive blood culture. Patient still complaining of significant pain in the left flank. Notes reviewed Temps ok Still with pain RACHEL no vegetation seen BC with MSSA Antibiotics: Ancef Vancomycin Lines: PIV Past Medical History: Coronary artery disease High cholesterol Pacemaker Hx of CABG Allergies/Adverse Reactions: Allergies No Known Allergies Allergy (Unverified 10/25/17 22:42) Objective Vital Signs 10/28/17 11:55 10/28/17 16:17 10/28/17 20:00 Temperature 98.4 F 98.0 F 98.2 F Pulse Rate 80 75 84 Respiratory Rate 18 18 20 Blood Pressure 166/89 H 177/96 H 121/68 Pulse Oximetry 99 98 92 L 10/29/17 00:00 10/29/17 04:00 10/29/17 08:11 Temperature 98.1 F 98.3 F 98.1 F Pulse Rate 83 68 71 Respiratory Rate 16 16 20 Blood Pressure 154/93 H 175/102 H 161/94 H Pulse Oximetry 95 95 93 L Intake & Output 10/28/17 10/29/17 10/29/17 18:59 06:59 18:59 Intake Total 1100 / 1100 715 / 715 615 / 615 Output Total 200 / 200 225 / 225 Balance 900 / 900 490 / 490 615 / 615 Intake: IV 1100 / 1100 715 / 715 615 / 615 NS Inj 1,000 ML @ 100 mls/hr IV 1000 / 1000 .CONT .Q10H ROXY Rx#:[id number] Vancomycin Inj 1,500 MG In NS 515 / 515 515 / 515 Inj 500 ML @ 250 mls/hr IV.SIG Q12H ROXY Rx#:[id number] Ancef Inj 2,000 MG In NS Inj 80 100 / 100 200 / 200 100 / 100 ML @ 200 mls/hr IV.SIG Q8H ROXY Rx#:[id number] Output: Urine 200 / 200 225 / 225 10/27/17 20:15 Blood - Peripheral Aerobic Blood Culture - Final Staphylococcus aureus 10/27/17 20:15 Blood - Peripheral Anaerobic Blood Culture - Preliminary No growth in 1 day 10/26/17 02:30 Blood - Peripheral Aerobic Blood Culture - Final Staphylococcus aureus 10/26/17 02:30 Blood - Peripheral Anaerobic Blood Culture - Final Staphylococcus aureus 10/27/17 20:50 Blood - Peripheral Aerobic Blood Culture - Preliminary gram positive cocci 10/27/17 20:50 Blood - Peripheral Anaerobic Blood Culture - Preliminary No growth in 1 day 10/29/17 08:33 Blood - Peripheral Aerobic Blood Culture - Pending 10/29/17 08:33 Blood - Peripheral Anaerobic Blood Culture - Pending 10/29/17 08:38 Blood - Peripheral Aerobic Blood Culture - Pending 10/29/17 08:38 Blood - Peripheral Anaerobic Blood Culture - Pending 10/28/17 21:12 Blood - Peripheral Aerobic Blood Culture - Pending 10/28/17 21:12 Blood - Peripheral Anaerobic Blood Culture - Pending 10/26/17 02:20 Blood - Peripheral Aerobic Blood Culture - Final Staphylococcus aureus 10/26/17 02:20 Blood - Peripheral Anaerobic Blood Culture - Final Staphylococcus aureus Lab - Hematology Results 10/28/17 06:30 WBC 9.6 RBC 4.23 L Hgb 13.3 Hct 39.2 MCV 92.6 MCH 31.5 MCHC 34.0 RDW 13.8 Plt Count 138 L MPV 7.8 Neut % (Auto) 75.0 H Lymph % (Auto) 9.7 [place] % (Auto) 14.6 H Eos % (Auto) 0.5 Baso % (Auto) 0.2 Neut # (Auto) 7.2 Lymph # (Auto) 0.9 L [place] # (Auto) 1.4 H Eos # (Auto) 0.1 Baso # (Auto) 0.0 WBC Differential . Differential Comment Auto diff final Lab - Chemistry Results 10/28/17 06:30 Sodium 142 Potassium 3.1 L Chloride 107 Carbon Dioxide 25.8 Anion Gap 9 BUN 10 Creatinine 0.82 Estimated GFR Greater than 89 Random Glucose 95 Calcium 8.1 L Total Bilirubin 1.2 H AST 45 H ALT 55 Alkaline Phosphatase 192 H Total Protein 5.7 L Albumin 2.0 L Imaging: ITS Impressions Abdomen/Pelvis CT 10/26/17 00:16 CONCLUSION: 1. Left psoas muscle is enlarged with surrounding inflammatory change and contains multiple foci of air consistent with phlegmonous change and developing psoas abscess. However, there is no significant focal drainable collection at this time. 2. Punctate 2 mm nonobstructing right renal calculus. 3. Normal appendix. CT Consultation 10/28/17 00:00 CONCLUSION: 1. A few dots of air identified in the enlarged left psoas with no obvious drainable fluid collection. Findings may represent an inflammatory phlegmon which could develop into an abscess over the next few days. 2. In addition, the patient was on Plavix therapy. His last dose was administered yesterday. This will have to be held for at least 3 days prior to any intervention. 3. Discussed with Dr. Demarco from infectious disease at the time of this dictation. Physical Exam: GENERAL: awake and alert, not in respiratory distress. SKIN: Warm and dry. No generalized rash, no ecchymoses and no evidence of embolic lesions. HEAD: Atraumatic. Normocephalic. No temporal wasting, or tenderness. EYES: [place] conjunctiva. No petechia or hemorrhage. Pupils equal, round and reactive to light. Extraocular movements full and intact. No scleral icterus. No injection or drainage. EARS, NOSE AND THROAT: Nose without bleeding or purulent nasal discharge. No sinus tenderness. Mucous membranes pink and moist. No oral lesions noted. No exudate. No oral thrush. NECK: Trachea midline. Supple and not tender, no meningeal signs CARDIOVASCULAR: Regular rate and rhythm. No murmurs, rubs or gallops heard. Pacemaker in L upper chest with no evidence of infection RESPIRATORY: Clear to auscultation. Breath sounds equal bilaterally. No rales , wheezing or rhonchi ABDOMEN: Soft, nondistended, with tenderness in LLQ. Bowel sounds present and normoactive. No guarding. No rebound. No organomegaly. EXTREMITIES: No clubbing, cyanosis, or edema. No joint effusion, has good ROM. No calf tenderness. Well perfused and warm. NEUROLOGICAL: Awake and alert. Cranial nerves grossly intact. Motor grossly within normal limits. PSYCHIATRIC: Normal affect, calm and cooperative. LINE: No evidence of infection Assessment and Plan - Plan Impression Staph aureus sepsis, worrisome for endovascular focus, IE, pacer - RACHEL negative L psoas fluid collection likely abscess, hematogenous spread S/P CABG 2015 S/P Pacemaker 2014 Recommendation Repeat BC to document clearing Repeat imaging studies Thurs to evaluate if amenable for drainage Continue IV Ancef Stop IV Vanco Follow C/S and adjust Abx I will determine course of Abx once work-up is completed Monitor progress
--- NOTE | 2017-10-29 13:14 | CT ---
EXAM DATE: 10/29/2017 12:57 PM EDT AGE/SEX: 62 years / Male INDICATIONS: Psoas fluid collection CLINICAL DATA: This is the patient's initial encounter. Patient reports that signs and symptoms have been present for 4 - 6 days and indicates a pain score of 6/10. MEDICAL/SURGICAL HISTORY: Cardiovascular disease. Pacemaker. CABG. RADIATION DOSE: 13.49 CTDI (mGy) COMPARISON: . TECHNIQUE: Multiple contiguous axial images were obtained through the abdomen. Images were obtained using multiple row detector helical technique. Using automated exposure control and adjustment of the mA and/or kV according to patient size, radiation dose was kept as low as reasonably achievable to o btain optimal diagnostic quality images. DICOM format image data is available electronically for rev iew and comparison. FINDINGS: Pacemaker in good position. Sternal wires suggests CABG Lower Lungs: Small bilateral pleural effusions. No evidence of pneumothorax. Liver: The liver has a homogeneous density without space-occupying lesion. There is no dilation of th e biliary tree. Spleen: Homogeneous density without enlargement. Pancreas: Unremarkable without mass or calcification. Kidneys: Normal in size and shape. No evidence of mass or hydronephrosis. Adrenal Glands: Unremarkable. Aorta: The aorta and proximal iliac vessels are grossly unremarkable without aneurysmal dilation. Bowel/Mesentery: The bowel loops are grossly unremarkable. The cecum and sigmoid colon have a normal configuration. Abdominal Wall: Intact. Retroperitoneum: The patient again has an enlarged left psoas muscle with low density and locules of air suspicious for infection. It's not significantly changed since the 16th. Bladder: Contours are smooth. Reproductive Organs: No abnormal masses or calcifications seen. Inguinal: Large bilateral inguinal hernias containing fat right greater than left. Bony Structures: Unremarkable. CONCLUSION: 1. Again a large hypodense area in the left psoas muscle with tiny locules of air, increased from th e previous study presumably infection or infected hematoma. 2. Bilateral inguinal hernias right greater than left containing fat Electronically signed by: Prudencio Carter MD 10/29/2017 1:12 PM EDT
--- NOTE | 2017-10-29 13:31 | P.PNCA ---
Subjective Interval history: Patient denies any chest pain, pressure, palpitations, dizziness, edema or shortness of breath. Patient is complaining of left lateral lower abdominal pain that does not appear to be improving. Physical Exam Vital signs: Vital Signs 10/28/17 16:17 10/28/17 20:00 10/29/17 00:00 Temperature 98.0 F 98.2 F 98.1 F Pulse Rate 75 84 83 Respiratory Rate 18 20 16 Blood Pressure 177/96 H 121/68 154/93 H Pulse Oximetry 98 92 L 95 10/29/17 04:00 10/29/17 08:11 Temperature 98.3 F 98.1 F Pulse Rate 68 71 Respiratory Rate 16 20 Blood Pressure 175/102 H 161/94 H Pulse Oximetry 95 93 L Intake & Output 10/28/17 10/29/17 10/29/17 18:59 06:59 18:59 Intake Total 1100 / 1100 715 / 715 615 / 615 Output Total 200 / 200 225 / 225 Balance 900 / 900 490 / 490 615 / 615 Intake: IV 1100 / 1100 715 / 715 615 / 615 NS Inj 1,000 ML @ 100 mls/hr IV 1000 / 1000 .CONT .Q10H ROXY Rx#:[id number] Vancomycin Inj 1,500 MG In NS 515 / 515 515 / 515 Inj 500 ML @ 250 mls/hr IV.SIG Q12H ROXY Rx#:[id number] Ancef Inj 2,000 MG In NS Inj 80 100 / 100 200 / 200 100 / 100 ML @ 200 mls/hr IV.SIG Q8H ROXY Rx#:[id number] Output: Urine 200 / 200 225 / 225 - Constitutional no acute distress - Routine HEENT Exam Head: Present: normocephalic Eye: Present: PERRL ENT: Present: mucous membranes moist - Routine Neck Exam Present: full ROM - Routine Respiratory Exam Present: CTA bilaterally - Routine Cardiovascular Exam Present: S1, S2. Absent: murmur, gallop, rubs - Routine Abdominal Exam Present: normoactive bowel sounds, tenderness - Routine Extremities Exam Present: full ROM, pulses intact, normal capillary refill. Absent: cyanosis, clubbing, edema - Routine Skin Exam Present: intact - Routine Neurological Exam Present: oriented X3 - Detailed Neurological Exam: Coma Scale Eye Opening: Spontaneous Verbal Response: Oriented Motor Response: Obey commands [place] Coma Scale Total: 15 - Routine Psychiatric Exam Present: normal affect Assessment and Plan - Assessment (1) Bacteremia due to Staphylococcus aureus Code(s): R78.81 - Bacteremia Status: Acute (2) Bacteremia Code(s): R78.81 - Bacteremia Status: Acute (3) Psoas abscess, left Code(s): K68.12 - Psoas muscle abscess Status: Acute (4) Calculus, renal Code(s): N20.0 - Calculus of kidney Status: Acute (5) Acute flank pain Code(s): R10.9 - Unspecified abdominal pain Status: Acute (6) Intractable pain Code(s): R52 - Pain, unspecified Status: Acute (7) Hypokalemia Code(s): E87.6 - Hypokalemia Status: Acute - Plan RACHEL done on 10-28-17 and showed no evidence of valvular vegetation, no evidence of pacemaker lead vegetation, preserved left ventricular systolic function, trace mitral valve regurgitation and mild tricuspid valve regurgitation. Patient had CT of the abdomen today which showed a large hypodense area in the left psoas muscle with tiny locules of air, presumably infection or infected hematoma. Continue with current antibiotic treatment per infectious disease. Increase activity as patient tolerates. Will follow during hospitalization. The patient was seen and evaluated by Dr. Araujo who participated in care, management and decision making. - Attending Attestation Patient seen and examined. I reviewed and agree with the evaluation and plan as presented. RACHEL with no evidence of endocarditis. Continue current program as per ID.
--- NOTE | 2017-10-29 15:33 | P.PNGS ---
Subjective Interval history: Resting in bed Pain about the same Now with low grade fever 100.3 Physical Exam Vital signs: Vital Signs 10/28/17 16:17 10/28/17 20:00 10/29/17 00:00 Temperature 98.0 F 98.2 F 98.1 F Pulse Rate 75 84 83 Respiratory Rate 18 20 16 Blood Pressure 177/96 H 121/68 154/93 H Pulse Oximetry 98 92 L 95 10/29/17 04:00 10/29/17 08:11 10/29/17 15:03 Temperature 98.3 F 98.1 F 100.4 F H Pulse Rate 68 71 73 Respiratory Rate 16 20 16 Blood Pressure 175/102 H 161/94 H 160/87 H Pulse Oximetry 95 93 L Intake & Output 10/28/17 10/29/17 10/29/17 18:59 06:59 18:59 Intake Total 1100 / 1100 715 / 715 615 / 615 Output Total 200 / 200 225 / 225 Balance 900 / 900 490 / 490 615 / 615 Intake: IV 1100 / 1100 715 / 715 615 / 615 NS Inj 1,000 ML @ 100 mls/hr IV 1000 / 1000 .CONT .Q10H ROXY Rx#:[id number] Vancomycin Inj 1,500 MG In NS 515 / 515 515 / 515 Inj 500 ML @ 250 mls/hr IV.SIG Q12H ROXY Rx#:[id number] Ancef Inj 2,000 MG In NS Inj 80 100 / 100 200 / 200 100 / 100 ML @ 200 mls/hr IV.SIG Q8H ROXY Rx#:[id number] Output: Urine 200 / 200 225 / 225 Narrative: Alert and awake Continues to have LEFT flank pain Results - Labs 11/10/17 05:18 11/11/17 07:52 - Imaging Imaging: ITS Impressions CT Consultation 10/28/17 00:00 CONCLUSION: 1. A few dots of air identified in the enlarged left psoas with no obvious drainable fluid collection. Findings may represent an inflammatory phlegmon which could develop into an abscess over the next few days. 2. In addition, the patient was on Plavix therapy. His last dose was administered yesterday. This will have to be held for at least 3 days prior to any intervention. 3. Discussed with Dr. Demarco from infectious disease at the time of this dictation. Abdomen/Pelvis CT 10/29/17 00:00 CONCLUSION: 1. Again a large hypodense area in the left psoas muscle with tiny locules of air, increased from the previous study presumably infection or infected hematoma. 2. Bilateral inguinal hernias right greater than left containing fat Assessment and Plan - Assessment (1) Psoas abscess, left Code(s): K68.12 - Psoas muscle abscess Status: Acute Plan: 62 year old male with LEFT psoas muscle abscess -ID following---s/p RACHEL yesterday -Went down for CT guided drainage but no amendable fluid collection -Plan for repeat images tomorrow per ID -Now with low grade fevers this afternoon -CBC in AM -Diet as tolerated Need to rescan, as patient's clinical situation has changed Will be difficult to drain surgically, as will likely need to approach transabdominally if IR unable to drain percutaneously The exam, history, and the medical decision-making described in the above note were completed with the assistance of the mid-level provider. I reviewed and agree with the findings presented. I attest that I had a [id number] encounter with the patient on the same day, and personally performed and documented my assessment and findings in the medical record. (2) Acute flank pain Code(s): R10.9 - Unspecified abdominal pain Status: Acute
[2017-10-29] MEDS ORDERED: Pharmacy Ordered Lab Info OTHER ONE (16:45)
[2017-10-30] MEDS: Morphine Sulfate Inj 2 MG/ML Vial IV.PUSH PRN ×4 (06:50→21:10)
[2017-10-30 06:59] LABS: Baso % (Auto) 0.1 % (0.0-2.0); Eos # (Auto) 0.1 th/mm3 (0.0-0.4); Eos % (Auto) 0.5 % (0.0-4.0); Hemoglobin 12.8 gm/dL (13.0-17.0); Lymph # (Auto) 1.2 th/mm3 (1.0-4.8); Lymph % (Auto) 9.7 % (9.0-44.0); Mean Corpuscular HGB Conc 34.5 % (32.0-36.0); Mean Corpuscular Hemoglobin 31.5 pg (27.0-34.0); Mean Corpuscular Volume 91.3 fL (80.0-100.0); Mono # (Auto) 1.5 th/mm3 (0.0-0.9); Mono % (Auto) 12.7 % (0.0-8.0); Neut # (Auto) 9.3 th/mm3 (1.8-7.7); Platelet Count 219 th/mm3 (150-450); Red Blood Count 4.05 mil/mm3 (4.50-5.90); Red Cell Distribution Width 13.9 % (11.6-17.2); White Blood Count 12.1 th/mm3 (4.0-11.0)
[2017-10-30] MEDS: Sod Chloride 0.9% Inj 1,000 ML IV.CONT SCH ×2 (07:23→18:32)
[2017-10-30] MEDS: ceFAZolin Inj 2,000 MG in Sodium Chlor 0.9% Inj 80 ML IV.SIG SCH ×3 (07:23→23:48)
[2017-10-30 07:27] LABS: Alanine Aminotransferase 44 U/L (12-78); Albumin 2.1 g/dL (3.4-5.0); Anion Gap 8 meq/L (5-15); Aspartate Aminotransferase 43 U/L (15-37); Calcium 7.9 mg/dL (8.5-10.1); Carbon Dioxide 28.9 meq/L (21.0-32.0); Chloride 100 meq/L (98-107); Glomerular Filtration Rate Greater Than 89 mL/min (>89); Glucose,Random 104 mg/dL (74-106); Potassium 3.1 meq/L (3.5-5.1); Sodium 137 meq/L (136-145)
[2017-10-30 07:37] LABS: Alkaline Phosphatase 212 U/L (45-117); Blood Urea Nitrogen 12 mg/dL (7-18); Total Protein 5.9 g/dL (6.4-8.2)
[2017-10-30] MEDS: Senna/Docusate Sodium 8.6/50 MG Tablet PO SCH ×2 (08:27→20:17)
[2017-10-30] MEDS: Amiodarone 200 MG Tablet PO SCH (08:28)
[2017-10-30] MEDS: Lisinopril 10 MG Tablet PO SCH (08:28)
[2017-10-30] MEDS: Furosemide 40 MG Tablet PO SCH (08:28)
[2017-10-30 08:38] LABS: Lymphocytes 6 % (9-44); Monocytes 10 % (0-8); Myelocytes 1 % (0-0); Platelet Estimate Normal (Normal); Platelet Morphology Normal (Normal); Toxic Granulation 1+
--- NOTE | 2017-10-30 09:57 | P.PNCA ---
Subjective Interval history: Patient appears to be resting comfortably in bed. Denies any chest pain, pressure, palpitations, dizziness, edema or shortness of breath. Patient does continue to complain of lower left lateral abdominal pain and feels like it is not getting any better. Physical Exam Vital signs: Vital Signs 10/29/17 14:35 10/29/17 15:03 10/29/17 20:00 Temperature 99.0 F 100.4 F H 98.4 F Pulse Rate 66 73 84 Respiratory Rate 20 16 18 Blood Pressure 148/92 H 160/87 H 149/86 H Pulse Oximetry 93 L 93 L 10/30/17 00:00 10/30/17 04:00 10/30/17 08:00 Temperature 98.5 F 98.7 F Pulse Rate 78 79 Respiratory Rate 18 18 18 Blood Pressure 163/95 H 155/93 H Pulse Oximetry 96 96 Intake & Output 10/29/17 10/30/17 10/30/17 18:59 06:59 18:59 Intake Total 1195 / 1195 1100 / 1100 1100 / 1100 Output Total 1600 / 1600 Balance -405 / -405 1100 / 1100 1100 / 1100 Weight 98.1 kg 98.4 kg Intake: IV 715 / 715 1100 / 1100 1100 / 1100 NS Inj 1,000 ML @ 100 mls/hr IV 1000 / 1000 1000 / 1000 .CONT .Q10H ROXY Rx#:[id number] Vancomycin Inj 1,500 MG In NS 515 / 515 Inj 500 ML @ 250 mls/hr IV.SIG Q12H ROXY Rx#:[id number] Ancef Inj 2,000 MG In NS Inj 80 200 / 200 100 / 100 100 / 100 ML @ 200 mls/hr IV.SIG Q8H ROXY Rx#:[id number] Oral 480 / 480 Output: Urine 1600 / 1600 - Constitutional no acute distress - Routine HEENT Exam Head: Present: normocephalic Eye: Present: PERRL ENT: Present: mucous membranes moist - Routine Neck Exam Present: full ROM - Routine Respiratory Exam Present: CTA bilaterally - Routine Cardiovascular Exam Present: S1, S2. Absent: murmur, gallop, rubs - Routine Abdominal Exam Present: normoactive bowel sounds - Routine Extremities Exam Present: full ROM, pulses intact, normal capillary refill. Absent: cyanosis, clubbing, edema - Routine Skin Exam Present: intact - Routine Neurological Exam Present: oriented X3 - Detailed Neurological Exam: Coma Scale Eye Opening: Spontaneous Verbal Response: Oriented Motor Response: Obey commands [place] Coma Scale Total: 15 - Routine Psychiatric Exam Present: normal affect Assessment and Plan - Assessment (1) Bacteremia due to Staphylococcus aureus Code(s): R78.81 - Bacteremia Status: Acute (2) Bacteremia Code(s): R78.81 - Bacteremia Status: Acute (3) Psoas abscess, left Code(s): K68.12 - Psoas muscle abscess Status: Acute (4) Calculus, renal Code(s): N20.0 - Calculus of kidney Status: Acute (5) Acute flank pain Code(s): R10.9 - Unspecified abdominal pain Status: Acute (6) Intractable pain Code(s): R52 - Pain, unspecified Status: Acute (7) Hypokalemia Code(s): E87.6 - Hypokalemia Status: Acute - Plan RACHEL done on 10-28-17 and showed no evidence of valvular vegetation, no evidence of pacemaker lead vegetation, preserved left ventricular systolic function, trace mitral valve regurgitation and mild tricuspid valve regurgitation. CT of the abdomen shows a large hypodense area in the left psoas muscle with tiny locules of air, presumably infection or infected hematoma. Continue with current antibiotic treatment per infectious disease. Increase activity as patient tolerates. We will follow during hospitalization. The patient was seen and evaluated by Dr. Araujo who participated in care, management and decision making. - Attending Attestation Patient seen and examined. I reviewed and agree with the evaluation and plan as presented. Continue current program for sepsis as per ID. No new cardiac issues.
--- NOTE | 2017-10-30 13:25 | P.PNIM ---
Physical Exam Vital signs: Vital Signs 10/29/17 14:35 10/29/17 15:03 10/29/17 20:00 Temperature 99.0 F 100.4 F H 98.4 F Pulse Rate 66 73 84 Respiratory Rate 20 16 18 Blood Pressure 148/92 H 160/87 H 149/86 H Pulse Oximetry 93 L 93 L 10/30/17 00:00 10/30/17 04:00 10/30/17 08:00 Temperature 98.5 F 98.7 F Pulse Rate 78 79 Respiratory Rate 18 18 18 Blood Pressure 163/95 H 155/93 H Pulse Oximetry 96 96 Intake & Output 10/29/17 10/30/17 10/30/17 18:59 06:59 18:59 Intake Total 1195 / 1195 1100 / 1100 1100 / 1100 Output Total 1600 / 1600 Balance -405 / -405 1100 / 1100 1100 / 1100 Weight 98.1 kg 98.4 kg Intake: IV 715 / 715 1100 / 1100 1100 / 1100 NS Inj 1,000 ML @ 100 mls/hr IV 1000 / 1000 1000 / 1000 .CONT .Q10H ROXY Rx#:[id number] Vancomycin Inj 1,500 MG In NS 515 / 515 Inj 500 ML @ 250 mls/hr IV.SIG Q12H ROXY Rx#:[id number] Ancef Inj 2,000 MG In NS Inj 80 200 / 200 100 / 100 100 / 100 ML @ 200 mls/hr IV.SIG Q8H ROXY Rx#:[id number] Oral 480 / 480 Output: Urine 1600 / 1600 Narrative: General patient in no acute distress HEENT extraocular movements are intact, clear oropharyngeal mucosa, no JVD Cardiovascular S1-S2 audible Respiratory clear to auscultation bilaterally Abdomen soft, left-sided flank pain present on palpation. Extremities no lesions noted on the patient's fingernails. Trace edema of the lower extremities Neuro patient can move all 4 extremities, sensation is intact bilaterally Results - Labs CBC & Chem 7: 10/30/17 05:51 10/30/17 05:51 Laboratory Results - last 24 hr 10/30/17 10/30/17 05:51 05:51 WBC 12.1 H RBC 4.05 L Hgb 12.8 L Hct 37.0 L MCV 91.3 MCH 31.5 MCHC 34.5 RDW 13.9 Plt Count 219 D MPV 8.0 Prelim Diff (Auto) Slide review pending Neut % (Auto) 77.0 H Lymph % (Auto) 9.7 [place] % (Auto) 12.7 H Eos % (Auto) 0.5 Baso % (Auto) 0.1 Neut # (Auto) 9.3 H Lymph # (Auto) 1.2 [place] # (Auto) 1.5 H Eos # (Auto) 0.1 Baso # (Auto) 0.0 WBC Differential Manual diff final Seg Neuts % (Manual) 75 H Band Neuts % (Manual) 8 H Lymphocytes % (Manual) 6 L Monocytes % (Manual) 10 H Myelocytes % (Man) 1 H Abs Neuts (Manual) 10.2 H Differential Comment . Toxic Granulation 1+ H Platelet Estimate Normal Platelet Morphology Normal Sodium 137 Potassium 3.1 L Chloride 100 Carbon Dioxide 28.9 Anion Gap 8 BUN 12 Creatinine 0.82 Estimated GFR Greater than 89 Random Glucose 104 Calcium 7.9 L Total Bilirubin 1.4 H AST 43 H ALT 44 Alkaline Phosphatase 212 H Total Protein 5.9 L Albumin 2.1 L Microbiology 10/27/17 20:50 Blood - Peripheral Aerobic Blood Culture - Final Staphylococcus aureus 10/27/17 20:50 Blood - Peripheral Anaerobic Blood Culture - Preliminary No growth in 3 days 10/29/17 08:33 Blood - Peripheral Aerobic Blood Culture - Preliminary gram positive cocci 10/29/17 08:33 Blood - Peripheral Anaerobic Blood Culture - Preliminary No growth in 1 day 10/29/17 08:38 Blood - Peripheral Aerobic Blood Culture - Preliminary gram positive cocci 10/29/17 08:38 Blood - Peripheral Anaerobic Blood Culture - Preliminary No growth in 1 day 10/28/17 21:12 Blood - Peripheral Aerobic Blood Culture - Preliminary gram positive cocci 10/28/17 21:12 Blood - Peripheral Anaerobic Blood Culture - Preliminary No growth in 2 days 10/27/17 20:15 Blood - Peripheral Aerobic Blood Culture - Final Staphylococcus aureus 10/27/17 20:15 Blood - Peripheral Anaerobic Blood Culture - Preliminary No growth in 3 days 10/26/17 02:30 Blood - Peripheral Aerobic Blood Culture - Final Staphylococcus aureus 10/26/17 02:30 Blood - Peripheral Anaerobic Blood Culture - Final Staphylococcus aureus - Procedures 10/28/17- RACHEL Assessment and Plan - Assessment (1) Psoas abscess, left Code(s): K68.12 - Psoas muscle abscess Status: Acute (2) Intractable pain Code(s): R52 - Pain, unspecified Status: Acute (3) Hypokalemia Code(s): E87.6 - Hypokalemia Status: Acute (4) Bacteremia due to Staphylococcus aureus Code(s): R78.81 - Bacteremia Status: Acute - Plan Patient is a 62-year-old male with a past medical history of coronary artery disease, status post CABG 5, status post pacemaker placement, and dyslipidemia. The patient presented to the emergency department 3 days of left- sided flank pain. He initially thought he had pulled a muscle while doing yard work. The patient's symptoms were getting worse and he came into our emergency department for evaluation. 1. MSSA bacteremia with left psoas abscess. The patient presented with a fever and was tachycardic. CT scan of the abdomen and pelvis shows a left psoas muscle with findings consistent with a psoas abscess. Blood cultures are positive for staph aureus. Repeat blood cultures were also positive. A repeat CT scan of the abdomen and pelvis shows growing size of the abscess. Surgery was consulted to evaluate the patient. The surgical team is recommending interventional radiology to drain the abscess. A RACHEL was also done which did not show any valvular vegetations or vegetations on the pacemaker lead. He will be continued on medications for pain control. We will follow up with recommendations from infectious disease. 2. Coronary artery disease status post CABG/dyslipidemia Continue current medications. Plavix has been held as the patient will require drainage of the abscess likely from interventional radiology. As per the patient he was noncompliant with his aspirin and Plavix and the rest of his medications at home over the past year.
--- NOTE | 2017-10-30 14:50 | P.PNID ---
Subjective Remarks: Patient is a 62-year-old male, presented to the hospital complaining of 4-5 day history of left-sided flank pain. He was apparently working in the yard, pulling weeds and he was doing this for 2 days. About 4 days prior to admission he started experiencing left-sided flank, side pain and the pain was quite severe that he was not able to do much. He denies any fever chills or sweats. He has not had any nausea or vomiting. He has not had any problem with his bowels. He has been voiding without any problem. Patient has not had any treatment for any infection in the last several months. On presentation he has had some low-grade temps. His WBC is normal. CT of the abdomen and pelvis showing asymmetry in his psoas muscle with the left being big and there are some foci of gas. There is no other abnormality seen. Blood cultures done on admission are now reported as growing gram-positive cocci in clusters. His urinalysis is unremarkable. Patient has known coronary artery disease and had undergone CABG in 2016. He stated that his pacemaker was placed about a year before his CABG. This was done in [place]. Patient has not had any follow-up with any title 1 tutor. Infectious disease consultation has been requested to evaluate the patient with positive blood culture. Patient still complaining of significant pain in the left flank. Notes reviewed Afebrile Still with pain Repeat CT area still hypodense but noted increased in size All BC (+) MSSA WBC up to 12 Antibiotics: Ancef Lines: PIV Past Medical History: Coronary artery disease High cholesterol Pacemaker Hx of CABG Allergies/Adverse Reactions: Allergies No Known Allergies Allergy (Unverified 10/25/17 22:42) Objective Vital Signs 10/29/17 15:03 10/29/17 20:00 10/30/17 00:00 Temperature 100.4 F H 98.4 F 98.5 F Pulse Rate 73 84 78 Respiratory Rate 16 18 18 Blood Pressure 160/87 H 149/86 H 163/95 H Pulse Oximetry 93 L 96 10/30/17 04:00 10/30/17 08:00 10/30/17 12:00 Temperature 98.7 F 97.9 F 98.0 F Pulse Rate 79 75 78 Respiratory Rate 18 20 18 Blood Pressure 155/93 H 159/92 H 161/98 H Pulse Oximetry 96 95 95 Intake & Output 10/29/17 10/30/17 10/30/17 18:59 06:59 18:59 Intake Total 1195 / 1195 1100 / 1100 1100 / 1100 Output Total 1600 / 1600 Balance -405 / -405 1100 / 1100 1100 / 1100 Weight 98.1 kg 98.4 kg Intake: IV 715 / 715 1100 / 1100 1100 / 1100 NS Inj 1,000 ML @ 100 mls/hr IV 1000 / 1000 1000 / 1000 .CONT .Q10H ROXY Rx#:[id number] Vancomycin Inj 1,500 MG In NS 515 / 515 Inj 500 ML @ 250 mls/hr IV.SIG Q12H ROXY Rx#:[id number] Ancef Inj 2,000 MG In NS Inj 80 200 / 200 100 / 100 100 / 100 ML @ 200 mls/hr IV.SIG Q8H ROXY Rx#:[id number] Oral 480 / 480 Output: Urine 1600 / 1600 10/30/17 14:05 Blood - Peripheral Aerobic Blood Culture - Pending 10/30/17 14:05 Blood - Peripheral Anaerobic Blood Culture - Pending 10/27/17 20:50 Blood - Peripheral Aerobic Blood Culture - Final Staphylococcus aureus 10/27/17 20:50 Blood - Peripheral Anaerobic Blood Culture - Preliminary No growth in 3 days 10/29/17 08:33 Blood - Peripheral Aerobic Blood Culture - Preliminary gram positive cocci 10/29/17 08:33 Blood - Peripheral Anaerobic Blood Culture - Preliminary No growth in 1 day 10/29/17 08:38 Blood - Peripheral Aerobic Blood Culture - Preliminary gram positive cocci 10/29/17 08:38 Blood - Peripheral Anaerobic Blood Culture - Preliminary No growth in 1 day 10/28/17 21:12 Blood - Peripheral Aerobic Blood Culture - Preliminary gram positive cocci 10/28/17 21:12 Blood - Peripheral Anaerobic Blood Culture - Preliminary No growth in 2 days 10/27/17 20:15 Blood - Peripheral Aerobic Blood Culture - Final Staphylococcus aureus 10/27/17 20:15 Blood - Peripheral Anaerobic Blood Culture - Preliminary No growth in 3 days 10/26/17 02:30 Blood - Peripheral Aerobic Blood Culture - Final Staphylococcus aureus 10/26/17 02:30 Blood - Peripheral Anaerobic Blood Culture - Final Staphylococcus aureus 10/26/17 02:20 Blood - Peripheral Aerobic Blood Culture - Final Staphylococcus aureus 10/26/17 02:20 Blood - Peripheral Anaerobic Blood Culture - Final Staphylococcus aureus Lab - Hematology Results 10/30/17 05:51 WBC 12.1 H RBC 4.05 L Hgb 12.8 L Hct 37.0 L MCV 91.3 MCH 31.5 MCHC 34.5 RDW 13.9 Plt Count 219 D MPV 8.0 Prelim Diff (Auto) Slide review pending Neut % (Auto) 77.0 H Lymph % (Auto) 9.7 [place] % (Auto) 12.7 H Eos % (Auto) 0.5 Baso % (Auto) 0.1 Neut # (Auto) 9.3 H Lymph # (Auto) 1.2 [place] # (Auto) 1.5 H Eos # (Auto) 0.1 Baso # (Auto) 0.0 WBC Differential Manual diff final Seg Neuts % (Manual) 75 H Band Neuts % (Manual) 8 H Lymphocytes % (Manual) 6 L Monocytes % (Manual) 10 H Myelocytes % (Man) 1 H Abs Neuts (Manual) 10.2 H Differential Comment . Toxic Granulation 1+ H Platelet Estimate Normal Platelet Morphology Normal Lab - Chemistry Results 10/30/17 05:51 Sodium 137 Potassium 3.1 L Chloride 100 Carbon Dioxide 28.9 Anion Gap 8 BUN 12 Creatinine 0.82 Estimated GFR Greater than 89 Random Glucose 104 Calcium 7.9 L Total Bilirubin 1.4 H AST 43 H ALT 44 Alkaline Phosphatase 212 H Total Protein 5.9 L Albumin 2.1 L Imaging: ITS Impressions CT Consultation 10/28/17 00:00 CONCLUSION: 1. A few dots of air identified in the enlarged left psoas with no obvious drainable fluid collection. Findings may represent an inflammatory phlegmon which could develop into an abscess over the next few days. 2. In addition, the patient was on Plavix therapy. His last dose was administered yesterday. This will have to be held for at least 3 days prior to any intervention. 3. Discussed with Dr. Demarco from infectious disease at the time of this dictation. Abdomen/Pelvis CT 10/29/17 00:00 CONCLUSION: 1. Again a large hypodense area in the left psoas muscle with tiny locules of air, increased from the previous study presumably infection or infected hematoma. 2. Bilateral inguinal hernias right greater than left containing fat Physical Exam: GENERAL: awake and alert, not in respiratory distress. SKIN: Warm and dry. No generalized rash, no ecchymoses and no evidence of embolic lesions. HEAD: Atraumatic. Normocephalic. No temporal wasting, or tenderness. EYES: [place] conjunctiva. No petechia or hemorrhage. Pupils equal, round and reactive to light. Extraocular movements full and intact. No scleral icterus. No injection or drainage. EARS, NOSE AND THROAT: Nose without bleeding or purulent nasal discharge. No sinus tenderness. Mucous membranes pink and moist. No oral lesions noted. No exudate. No oral thrush. NECK: Trachea midline. Supple and not tender, no meningeal signs CARDIOVASCULAR: Regular rate and rhythm. No murmurs, rubs or gallops heard. Pacemaker in L upper chest with no evidence of infection RESPIRATORY: Clear to auscultation. Breath sounds equal bilaterally. No rales , wheezing or rhonchi ABDOMEN: Soft, nondistended, with tenderness in LLQ. Bowel sounds present and normoactive. No guarding. No rebound. No organomegaly. EXTREMITIES: No clubbing, cyanosis, or edema. No joint effusion, has good ROM. No calf tenderness. Well perfused and warm. NEUROLOGICAL: Awake and alert. Cranial nerves grossly intact. Motor grossly within normal limits. PSYCHIATRIC: Normal affect, calm and cooperative. LINE: No evidence of infection Assessment and Plan - Plan Impression Staph aureus sepsis, worrisome foe endovascular focus, IE, pacer L psoas fluid collection likely abscess, hematogenous spread S/P CABG 2016 S/P Pacemaker 2014 Recommendation Repeat BC to document clearing Will D/W with radiology regarding ?drainage Continue IV Ancef Give short course of Gentamicin Follow C/S and adjust Abx Monitor progress
[2017-10-30] MEDS ORDERED: GENTAMICIN IV.SIG ONE (15:15)
[2017-10-30] MEDS ORDERED: SODIUM CHLOR 0.9% IV.SIG ONE (15:15)
--- NOTE | 2017-10-30 15:38 | P.PNGS ---
Subjective Interval history: Patient resting in bed No fevers overnight Took Plavix several days ago and waiting for it to get out of his system Physical Exam Vital signs: Vital Signs 10/29/17 20:00 10/30/17 00:00 10/30/17 04:00 Temperature 98.4 F 98.5 F 98.7 F Pulse Rate 84 78 79 Respiratory Rate 18 18 18 Blood Pressure 149/86 H 163/95 H 155/93 H Pulse Oximetry 93 L 96 96 10/30/17 08:00 10/30/17 12:00 Temperature 97.9 F 98.0 F Pulse Rate 75 78 Respiratory Rate 20 18 Blood Pressure 159/92 H 161/98 H Pulse Oximetry 95 95 Intake & Output 10/29/17 10/30/17 10/30/17 18:59 06:59 18:59 Intake Total 1195 / 1195 1100 / 1100 1100 / 1100 Output Total 1600 / 1600 Balance -405 / -405 1100 / 1100 1100 / 1100 Weight 98.1 kg 98.4 kg Intake: IV 715 / 715 1100 / 1100 1100 / 1100 NS Inj 1,000 ML @ 100 mls/hr IV 1000 / 1000 1000 / 1000 .CONT .Q10H ROXY Rx#:[id number] Vancomycin Inj 1,500 MG In NS 515 / 515 Inj 500 ML @ 250 mls/hr IV.SIG Q12H ROXY Rx#:[id number] Ancef Inj 2,000 MG In NS Inj 80 200 / 200 100 / 100 100 / 100 ML @ 200 mls/hr IV.SIG Q8H ROXY Rx#:[id number] Oral 480 / 480 Output: Urine 1600 / 1600 Narrative: Alert and awake LEFT side/flank tenderness Results - Labs 11/10/17 05:18 11/11/17 07:52 Laboratory Results - last 24 hr 10/30/17 10/30/17 05:51 05:51 WBC 12.1 H RBC 4.05 L Hgb 12.8 L Hct 37.0 L MCV 91.3 MCH 31.5 MCHC 34.5 RDW 13.9 Plt Count 219 D MPV 8.0 Prelim Diff (Auto) Slide review pending Neut % (Auto) 77.0 H Lymph % (Auto) 9.7 [place] % (Auto) 12.7 H Eos % (Auto) 0.5 Baso % (Auto) 0.1 Neut # (Auto) 9.3 H Lymph # (Auto) 1.2 [place] # (Auto) 1.5 H Eos # (Auto) 0.1 Baso # (Auto) 0.0 WBC Differential Manual diff final Seg Neuts % (Manual) 75 H Band Neuts % (Manual) 8 H Lymphocytes % (Manual) 6 L Monocytes % (Manual) 10 H Myelocytes % (Man) 1 H Abs Neuts (Manual) 10.2 H Differential Comment . Toxic Granulation 1+ H Platelet Estimate Normal Platelet Morphology Normal Sodium 137 Potassium 3.1 L Chloride 100 Carbon Dioxide 28.9 Anion Gap 8 BUN 12 Creatinine 0.82 Estimated GFR Greater than 89 Random Glucose 104 Calcium 7.9 L Total Bilirubin 1.4 H AST 43 H ALT 44 Alkaline Phosphatase 212 H Total Protein 5.9 L Albumin 2.1 L - Imaging Imaging: ITS Impressions CT Consultation 10/28/17 00:00 CONCLUSION: 1. A few dots of air identified in the enlarged left psoas with no obvious drainable fluid collection. Findings may represent an inflammatory phlegmon which could develop into an abscess over the next few days. 2. In addition, the patient was on Plavix therapy. His last dose was administered yesterday. This will have to be held for at least 3 days prior to any intervention. 3. Discussed with Dr. Demarco from infectious disease at the time of this dictation. Abdomen/Pelvis CT 10/29/17 00:00 CONCLUSION: 1. Again a large hypodense area in the left psoas muscle with tiny locules of air, increased from the previous study presumably infection or infected hematoma. 2. Bilateral inguinal hernias right greater than left containing fat Assessment and Plan - Assessment (1) Psoas abscess, left Code(s): K68.12 - Psoas muscle abscess Status: Acute Plan: 62 year old male with LEFT psoas muscle abscess -ID following---s/p RACHEL -Afebrile overnight -WBC slightly elevated now; 12k -CBC in AM -Diet as tolerated -Discussed wit Dr. Luna--- he will discuss with IR about timing of drainage due to Plavix Needs percutaneous drainage if possible; discussed with ID about possible sources: leg skin trauma (trimming bushes), diverticular perforation (unlikely due to lack of inflammation in sigmoid colon on CT), endocarditis (RACHEL negative for vegetation), bacteremia from other cause - malignancy The exam, history, and the medical decision-making described in the above note were completed with the assistance of the mid-level provider. I reviewed and agree with the findings presented. I attest that I had a [id number] encounter with the patient on the same day, and personally performed and documented my assessment and findings in the medical record. (2) Acute flank pain Code(s): R10.9 - Unspecified abdominal pain Status: Acute
[2017-10-31] MEDS: Morphine Sulfate Inj 2 MG/ML Vial IV.PUSH PRN ×4 (01:42→19:25)
[2017-10-31] MEDS: Sod Chloride 0.9% Inj 1,000 ML IV.CONT SCH ×3 (06:00→21:15)
[2017-10-31 07:23] LABS: Baso % (Auto) 0.3 % (0.0-2.0); Eos # (Auto) 0.1 th/mm3 (0.0-0.4); Eos % (Auto) 0.4 % (0.0-4.0); Hematocrit 38.2 % (39.0-51.0); Lymph # (Auto) 1.4 th/mm3 (1.0-4.8); Lymph % (Auto) 9.1 % (9.0-44.0); Mean Corpuscular Volume 91.2 fL (80.0-100.0); Mono # (Auto) 1.4 th/mm3 (0.0-0.9); Mono % (Auto) 9.1 % (0.0-8.0); Neut # (Auto) 12.5 th/mm3 (1.8-7.7); Neut % (Auto) 81.1 % (16.0-70.0); Platelet Count 282 th/mm3 (150-450); Red Blood Count 4.19 mil/mm3 (4.50-5.90); Red Cell Distribution Width 13.9 % (11.6-17.2); White Blood Count 15.4 th/mm3 (4.0-11.0)
[2017-10-31] MEDS: Furosemide 40 MG Tablet PO SCH (09:02)
[2017-10-31] MEDS: ceFAZolin Inj 2,000 MG in Sodium Chlor 0.9% Inj 80 ML IV.SIG SCH ×2 (09:02→16:08)
[2017-10-31] MEDS: Lisinopril 10 MG Tablet PO SCH (09:02)
[2017-10-31] MEDS: Senna/Docusate Sodium 8.6/50 MG Tablet PO SCH ×2 (09:02→21:17)
[2017-10-31] MEDS: Amiodarone 200 MG Tablet PO SCH (09:02)
[2017-10-31] MEDS ORDERED: Gentamicin Consult Pharmacy 1 EACH OTHER SCH (10:00)
--- NOTE | 2017-10-31 10:00 | P.PNID ---
Subjective Remarks: Patient is a 62-year-old male, presented to the hospital complaining of 4-5 day history of left-sided flank pain. He was apparently working in the yard, pulling weeds and he was doing this for 2 days. About 4 days prior to admission he started experiencing left-sided flank, side pain and the pain was quite severe that he was not able to do much. He denies any fever chills or sweats. He has not had any nausea or vomiting. He has not had any problem with his bowels. He has been voiding without any problem. Patient has not had any treatment for any infection in the last several months. On presentation he has had some low-grade temps. His WBC is normal. CT of the abdomen and pelvis showing asymmetry in his psoas muscle with the left being big and there are some foci of gas. There is no other abnormality seen. Blood cultures done on admission are now reported as growing gram-positive cocci in clusters. His urinalysis is unremarkable. Patient has known coronary artery disease and had undergone CABG in 2016. He stated that his pacemaker was placed about a year before his CABG. This was done in [place]. 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 Infectious disease consultation has been requested to evaluate the patient with positive blood culture. Patient still complaining of significant pain in the left flank. Notes reviewed Afebrile Still with pain Repeat CT area still hypodense but noted increased in size All BC (+) MSSA WBC up to 15 Antibiotics: Ancef Lines: PIV Past Medical History: Coronary artery disease High cholesterol Pacemaker Hx of CABG Allergies/Adverse Reactions: Allergies No Known Allergies Allergy (Unverified 10/25/17 22:42) Objective Vital Signs 10/30/17 12:00 10/30/17 16:00 10/30/17 20:00 Temperature 98.0 F 98.1 F 97.6 F Pulse Rate 78 94 H 85 Respiratory Rate 18 18 18 Blood Pressure 161/98 H 139/90 146/94 H Pulse Oximetry 95 95 96 10/30/17 21:25 10/30/17 23:53 10/31/17 00:00 Temperature 98.1 F 98.1 F Pulse Rate 83 83 Respiratory Rate 20 17 17 Blood Pressure 148/95 H 148/95 H Pulse Oximetry 94 L 94 L 10/31/17 04:00 10/31/17 08:00 Temperature 98.0 F 98.2 F Pulse Rate 88 79 Respiratory Rate 22 17 Blood Pressure 144/91 H 167/99 H Pulse Oximetry 93 L 94 L Intake & Output 10/30/17 10/31/17 10/31/17 18:59 06:59 18:59 Intake Total 1950 455 / 455 1000 / 1000 Balance 1950 455 / 455 1000 / 1000 Weight 96.5 kg Intake: IV 1950 455 / 455 1000 / 1000 NS Inj 1,000 ML @ 100 mls/hr IV 1645 / 1645 355 / 355 1000 / 1000 .CONT .Q10H [facility] Rx#:[id number] Gentamicin Inj 240 MG In NS Inj 106 / 106 100 ML @ 100 mls/hr IV.SIG ONCE ONE Rx#:[id number] Ancef Inj 2,000 MG In NS Inj 80 200 / 200 100 / 100 ML @ 200 mls/hr IV.SIG Q8H [facility] Rx#:[id number] Other: Date of Last Bowel Movement 10/23/17 10/29/17 08:33 Blood - Peripheral Aerobic Blood Culture - Final Staphylococcus aureus 10/29/17 08:33 Blood - Peripheral Anaerobic Blood Culture - Preliminary No growth in 1 day 10/29/17 08:38 Blood - Peripheral Aerobic Blood Culture - Final Staphylococcus aureus 10/29/17 08:38 Blood - Peripheral Anaerobic Blood Culture - Preliminary No growth in 1 day 10/28/17 21:12 Blood - Peripheral Aerobic Blood Culture - Final Staphylococcus aureus 10/28/17 21:12 Blood - Peripheral Anaerobic Blood Culture - Preliminary No growth in 2 days 10/31/17 06:15 Blood - Peripheral Aerobic Blood Culture - Pending 10/31/17 06:15 Blood - Peripheral Anaerobic Blood Culture - Pending 10/30/17 14:05 Blood - Peripheral Aerobic Blood Culture - Pending 10/30/17 14:05 Blood - Peripheral Anaerobic Blood Culture - Pending 10/27/17 20:50 Blood - Peripheral Aerobic Blood Culture - Final Staphylococcus aureus 10/27/17 20:50 Blood - Peripheral Anaerobic Blood Culture - Preliminary No growth in 3 days 10/27/17 20:15 Blood - Peripheral Aerobic Blood Culture - Final Staphylococcus aureus 10/27/17 20:15 Blood - Peripheral Anaerobic Blood Culture - Preliminary No growth in 3 days 10/26/17 02:30 Blood - Peripheral Aerobic Blood Culture - Final Staphylococcus aureus 10/26/17 02:30 Blood - Peripheral Anaerobic Blood Culture - Final Staphylococcus aureus 10/26/17 02:20 Blood - Peripheral Aerobic Blood Culture - Final Staphylococcus aureus 10/26/17 02:20 Blood - Peripheral Anaerobic Blood Culture - Final Staphylococcus aureus Lab - Hematology Results 10/30/17 10/31/17 05:51 06:15 WBC 12.1 H 15.4 H RBC 4.05 L 4.19 L Hgb 12.8 L 13.0 Hct 37.0 L 38.2 L MCV 91.3 91.2 MCH 31.5 31.0 MCHC 34.5 34.0 RDW 13.9 13.9 Plt Count 219 D 282 MPV 8.0 8.0 Prelim Diff (Auto) Slide review pending Neut % (Auto) 77.0 H 81.1 H Lymph % (Auto) 9.7 9.1 [place] % (Auto) 12.7 H 9.1 H Eos % (Auto) 0.5 0.4 Baso % (Auto) 0.1 0.3 Neut # (Auto) 9.3 H 12.5 H Lymph # (Auto) 1.2 1.4 [place] # (Auto) 1.5 H 1.4 H Eos # (Auto) 0.1 0.1 Baso # (Auto) 0.0 0.0 WBC Differential Manual diff final . Seg Neuts % (Manual) 75 H Band Neuts % (Manual) 8 H Lymphocytes % (Manual) 6 L Monocytes % (Manual) 10 H Myelocytes % (Man) 1 H Abs Neuts (Manual) 10.2 H Differential Comment . Auto diff final Toxic Granulation 1+ H Platelet Estimate Normal Platelet Morphology Normal Lab - Chemistry Results 10/30/17 05:51 Sodium 137 Potassium 3.1 L Chloride 100 Carbon Dioxide 28.9 Anion Gap 8 BUN 12 Creatinine 0.82 Estimated GFR Greater than 89 Random Glucose 104 Calcium 7.9 L Total Bilirubin 1.4 H AST 43 H ALT 44 Alkaline Phosphatase 212 H Total Protein 5.9 L Albumin 2.1 L Imaging: ITS Impressions CT Consultation 10/28/17 00:00 CONCLUSION: 1. A few dots of air identified in the enlarged left psoas with no obvious drainable fluid collection. Findings may represent an inflammatory phlegmon which could develop into an abscess over the next few days. 2. In addition, the patient was on Plavix therapy. His last dose was administered yesterday. This will have to be held for at least 3 days prior to any intervention. 3. Discussed with Dr. Demarco from infectious disease at the time of this dictation. Abdomen/Pelvis CT 10/29/17 00:00 CONCLUSION: 1. Again a large hypodense area in the left psoas muscle with tiny locules of air, increased from the previous study presumably infection or infected hematoma. 2. Bilateral inguinal hernias right greater than left containing fat Physical Exam: GENERAL: awake and alert, not in respiratory distress. SKIN: Warm and dry. No generalized rash HEAD: Atraumatic. Normocephalic. No temporal wasting, or tenderness. EYES: [place] conjunctiva. No petechia or hemorrhage. Pupils equal, round and reactive to light. Extraocular movements full and intact. No scleral icterus. No injection or drainage. EARS, NOSE AND THROAT: Nose without bleeding or purulent nasal discharge. No sinus tenderness. Mucous membranes pink and moist. No oral lesions noted. NECK: Trachea midline. Supple and not tender, no meningeal signs CARDIOVASCULAR: Regular rate and rhythm. No murmurs, rubs or gallops heard. Pacemaker in L upper chest with no evidence of infection RESPIRATORY: Clear to auscultation. Breath sounds equal bilaterally. No rales , wheezing or rhonchi ABDOMEN: Soft, globular, nondistended, with tenderness in LLQ. Bowel sounds present and normoactive. No guarding. No rebound. No organomegaly. EXTREMITIES: No clubbing, cyanosis, or edema. No joint effusion, has good ROM. No calf tenderness. Well perfused and warm. NEUROLOGICAL: Grossly non-focal. PSYCHIATRIC: Normal affect, calm and cooperative. LINE: No evidence of infection Assessment and Plan - Plan Impression Staph aureus sepsis, worrisome foe endovascular focus, IE, pacer L psoas fluid collection likely abscess, hematogenous spread S/P CABG 2016 S/P Pacemaker 2014 Recommendation Repeat BC to document clearing Will D/W with radiology regarding ?drainage Continue IV Ancef IV Gentamicin Follow C/S and adjust Abx Monitor progress Explained plan to the patient D/W Dr Luna
--- NOTE | 2017-10-31 12:01 | P.PNCA ---
Subjective Interval history: Patient denies any chest pain, pressure, palpitations, dizziness, edema or shortness of breath. Patient still complains of left lateral lower abdominal pain. Medications and Allergies Allergies Allergy/AdvReac Type Severity Reaction Status Date / Time No Known Allergies Allergy Unverified 10/25/17 22:42 Home Medications Medication Instructions Recorded Confirmed Type amiodarone 200 mg PO DAILY 10/26/17 10/26/17 History atorvastatin 40 mg PO DAILY 10/26/17 10/26/17 History clopidogrel 75 mg PO DAILY 10/26/17 10/26/17 History furosemide 40 mg PO DAILY 10/26/17 10/26/17 History levothyroxine 25 mcg PO DAILY 10/26/17 10/26/17 History meloxicam 7.5 mg PO BID 10/26/17 10/26/17 History metoprolol succinate 25 mg PO DAILY 10/26/17 10/26/17 History Active Medications: Active Medications Acetaminophen (Tylenol) 650 mg PO Q4H PRN PRN Reason: Temp > 100.4/LAURA Hydrocodone Bitart/Acetaminophen (Carmen 5/325) 1 tab PO Q6H PRN PRN Reason: pain scale 3-6 Hydrocodone Bitart/Acetaminophen (Carmen 7.5/325) 1 tab PO Q6H PRN PRN Reason: pain scale 7-10 Last Admin: 10/31/17 09:06 Dose: 1 tab Al Hydroxide/Mg Hydroxide (Milk Of Loni Dash) 30 ml PO Q12H PRN PRN Reason: Mild Constipation Amiodarone HCl (Cordarone) 200 mg PO DAILY [facility] Last Admin: 10/31/17 09:02 Dose: 200 mg Atorvastatin Calcium (Lipitor) 40 mg PO DAILY [facility] Last Admin: 10/31/17 09:03 Dose: 40 mg Bisacodyl (Dulcolax Supp) 10 mg RECTAL DAILY PRN PRN Reason: SEVERE CONSITIPATION Chlorhexidine Gluconate (Chlorhexidine 2% Cloth) 3 pack [employer]GER [employer] [facility] Stop: 10/31/17 14:39 Clopidogrel Bisulfate (Plavix) 75 mg PO DAILY [facility] Last Admin: 10/31/17 09:06 Dose: 75 mg Cyclobenzaprine HCl (Flexeril) 10 mg PO Q8H PRN PRN Reason: muscle spasms Last Admin: 10/31/17 09:08 Dose: 10 mg Furosemide (Lasix) 40 mg PO DAILY [facility] Last Admin: 10/31/17 09:02 Dose: 40 mg Sodium Chloride (Ns Inj) 1,000 mls @ 0 mls/hr IV.SIG BOLUS [facility] Last Infusion: 10/26/17 00:04 Dose: Infused Sodium Chloride (Ns Inj) 1,000 mls @ 100 mls/hr IV.CONT .Q10H [facility] Last Infusion: 10/31/17 09:08 Dose: Infused Cefazolin Sodium 2,000 mg/ (Sodium Chloride) 100 mls @ 200 mls/hr IV.SIG Q8H [facility] Last Infusion: 10/31/17 10:24 Dose: Infused Lactated Ringer's (Lr 1000 Ml Inj) 1,000 mls @ 30 mls/hr IV.SIG .Q24H [facility] Stop: 10/31/17 14:44 Last Admin: 10/30/17 15:53 Dose: Not Given Sodium Chloride (Ns Inj) 500 mls @ 30 mls/hr IV.SIG .Q10H [facility] Stop: 10/31/17 14:59 Pharmacy Profile Note (Gentamicin Consult Pharmacy) 0 mls @ 0 mls/hr OTHER UNSCH [facility] Gentamicin Sulfate 450 mg/ (Sodium Chloride) 111.25 mls @ 100 mls/hr IV.SIG Q24H [facility] Lactulose (Lactulose Liq) 30 ml PO DAILY PRN PRN Reason: SEVERE CONSITIPATION Levothyroxine Sodium (Synthroid) 25 mcg PO DAILY@0600 [facility] Last Admin: 10/31/17 05:58 Dose: 25 mcg Lisinopril (Prinivil) 10 mg PO DAILY [facility] Last Admin: 10/31/17 09:02 Dose: 10 mg Metoprolol Succinate (Toprol Xl) 25 mg PO DAILY [facility] Last Admin: 10/31/17 09:02 Dose: 25 mg Metoprolol Tartrate (Lopressor) 25 mg PO [employer] [facility] Stop: 10/31/17 14:39 Morphine Sulfate (Morphine Inj) 2 mg IV.PUSH Q3H PRN PRN Reason: BREAKTHROUGH PAIN Last Admin: 10/31/17 05:58 Dose: 2 mg Ondansetron HCl (Zofran Inj) 4 mg IV.PUSH Q6H PRN PRN Reason: NAUSEA OR VOMITING Povidone Iodine (Betadine 5% Antisepsis Kit) 1 applicatio EACH [employer] [facility] Stop: 10/31/17 14:39 Senna/Docusate Sodium ([place]-Colace) 1 tab PO BID [facility] Last Admin: 10/31/17 09:02 Dose: 1 tab Sennosides (Senokot) 17.2 mg PO Q12H PRN PRN Reason: Moderate Constipation Physical Exam Vital signs: Vital Signs 10/30/17 12:00 10/30/17 16:00 10/30/17 20:00 Temperature 98.0 F 98.1 F 97.6 F Pulse Rate 78 94 H 85 Respiratory Rate 18 18 18 Blood Pressure 161/98 H 139/90 146/94 H Pulse Oximetry 95 95 96 10/30/17 21:25 10/30/17 23:53 10/31/17 00:00 Temperature 98.1 F 98.1 F Pulse Rate 83 83 Respiratory Rate 20 17 17 Blood Pressure 148/95 H 148/95 H Pulse Oximetry 94 L 94 L 10/31/17 04:00 10/31/17 08:00 Temperature 98.0 F 98.2 F Pulse Rate 88 79 Respiratory Rate 22 17 Blood Pressure 144/91 H 167/99 H Pulse Oximetry 93 L 94 L Intake & Output 10/30/17 10/31/17 10/31/17 18:59 06:59 18:59 Intake Total 1950 455 / 455 1100 / 1100 Balance 1950 455 / 455 1100 / 1100 Weight 96.5 kg Intake: IV 1950 455 / 455 1100 / 1100 NS Inj 1,000 ML @ 100 mls/hr IV 1645 / 1645 355 / 355 1000 / 1000 .CONT .Q10H [facility] Rx#:[id number] Gentamicin Inj 240 MG In NS Inj 106 / 106 100 ML @ 100 mls/hr IV.SIG ONCE ONE Rx#:[id number] Ancef Inj 2,000 MG In NS Inj 80 200 / 200 100 / 100 100 / 100 ML @ 200 mls/hr IV.SIG Q8H [facility] Rx#:[id number] Other: Date of Last Bowel Movement 10/23/17 - Constitutional no acute distress - Routine HEENT Exam Head: Present: normocephalic Eye: Present: PERRL ENT: Present: mucous membranes moist - Routine Neck Exam Present: full ROM - Routine Respiratory Exam Present: CTA bilaterally - Routine Cardiovascular Exam Present: S1, S2. Absent: murmur, gallop, rubs - Routine Abdominal Exam Present: normoactive bowel sounds - Routine Extremities Exam Present: full ROM, pulses intact, normal capillary refill. Absent: cyanosis, clubbing, edema - Routine Skin Exam Present: intact - Routine Neurological Exam Present: oriented X3 - Detailed Neurological Exam: Coma Scale Eye Opening: Spontaneous Verbal Response: Oriented Motor Response: Obey commands Rosemary Coma Scale Total: 15 - Routine Psychiatric Exam Present: normal affect Results 10/31/17 06:15 10/30/17 05:51 Cardiac Enzymes 10/30/17 Range/Units 05:51 AST 43 H (15-37) U/L CBC 10/30/17 10/31/17 Range/Units 05:51 06:15 WBC 12.1 H 15.4 H (4.0-11.0) th/mm3 RBC 4.05 L 4.19 L (4.50-5.90) mil/mm3 Hgb 12.8 L 13.0 (13.0-17.0) gm/dL Hct 37.0 L 38.2 L (39.0-51.0) % Plt Count 219 D 282 (150-450) th/mm3 Neut # (Auto) 9.3 H 12.5 H (1.8-7.7) th/mm3 Lymph # (Auto) 1.2 1.4 (1.0-4.8) th/mm3 [place] # (Auto) 1.5 H 1.4 H (0.0-0.9) th/mm3 Eos # (Auto) 0.1 0.1 (0.0-0.4) th/mm3 Baso # (Auto) 0.0 0.0 (0.0-0.2) th/mm3 Comprehensive Metabolic Panel 10/30/17 Range/Units 05:51 Sodium 137 (136-145) meq/L Potassium 3.1 L (3.5-5.1) meq/L Chloride 100 (98-107) meq/L Carbon Dioxide 28.9 (21.0-32.0) meq/L BUN 12 (7-18) mg/dL Creatinine 0.82 (0.60-1.30) mg/dL Calcium 7.9 L (8.5-10.1) mg/dL AST 43 H (15-37) U/L ALT 44 (12-78) U/L Alkaline Phosphatase 212 H (45-117) U/L Total Protein 5.9 L (6.4-8.2) g/dL Albumin 2.1 L (3.4-5.0) g/dL Intake and Output 10/30/17 10/31/17 10/31/17 22:59 06:59 14:59 Intake Total 1206 / 1206 100 / 100 1100 / 1100 Balance 1206 / 1206 100 / 100 1100 / 1100 Intake: IV 1206 / 1206 100 / 100 1100 / 1100 NS Inj 1,000 ML @ 100 mls/hr IV 1000 / 1000 1000 / 1000 .CONT .Q10H [facility] Rx#:[id number] Gentamicin Inj 240 MG In NS Inj 106 / 106 100 ML @ 100 mls/hr IV.SIG ONCE ONE Rx#:[id number] Ancef Inj 2,000 MG In NS Inj 80 100 / 100 100 / 100 100 / 100 ML @ 200 mls/hr IV.SIG Q8H [facility] Rx#:[id number] Other: Date of Last Bowel Movement 10/23/17 Weight 96.5 kg - Imaging and Cardiology Imaging: Impressions Abdomen/Pelvis CT 10/29/17 00:00 CONCLUSION: 1. Again a large hypodense area in the left psoas muscle with tiny locules of air, increased from the previous study presumably infection or infected hematoma. 2. Bilateral inguinal hernias right greater than left containing fat Assessment and Plan - Assessment (1) Bacteremia due to Staphylococcus aureus Code(s): R78.81 - Bacteremia Status: Acute (2) Bacteremia Code(s): R78.81 - Bacteremia Status: Acute (3) Psoas abscess, left Code(s): K68.12 - Psoas muscle abscess Status: Acute (4) Calculus, renal Code(s): N20.0 - Calculus of kidney Status: Acute (5) Acute flank pain Code(s): R10.9 - Unspecified abdominal pain Status: Acute (6) Intractable pain Code(s): R52 - Pain, unspecified Status: Acute (7) Hypokalemia Code(s): E87.6 - Hypokalemia Status: Acute - Plan No new cardiac issues. RACHEL done on 9-18-18 and showed no evidence of valvular vegetation, no evidence of pacemaker lead vegetation, preserved left ventricular systolic function, trace mitral valve regurgitation and mild tricuspid valve regurgitation. CT of the abdomen shows a large hypodense area in the left psoas muscle with tiny locules of air, presumably infection or infected hematoma. Continue with current antibiotic treatment per infectious disease. Interventional radiology has been consulted for possible drainage of the left psoas muscle. Increase activity as patient tolerates. The patient was seen and evaluated by Dr. Araujo who participated in care, management and decision making. - Attending Attestation Patient seen and examined. I reviewed and agree with the evaluation and plan as presented. Continue current program as per ID. Psoas muscle abscess drainage planned.
[2017-10-31] MEDS: SODIUM CHLOR 0.9% IV.SIG SCH (12:08)
[2017-10-31] MEDS: GENTAMICIN IV.SIG SCH (12:08)
[2017-10-31] MEDS: Sod Chloride 0.9% Inj 1,000 ML IV.SIG SCH (12:15)
--- NOTE | 2017-10-31 14:41 | P.PNIM ---
Subjective Interval history: Patient complains of left-sided flank pain. He is tolerating a p.o. diet he does not have any other complaints. Physical Exam Vital signs: Vital Signs 10/30/17 16:00 10/30/17 20:00 10/30/17 21:25 Temperature 98.1 F 97.6 F Pulse Rate 94 H 85 Respiratory Rate 18 18 20 Blood Pressure 139/90 146/94 H Pulse Oximetry 95 96 10/30/17 23:53 10/31/17 00:00 10/31/17 04:00 Temperature 98.1 F 98.1 F 98.0 F Pulse Rate 83 83 88 Respiratory Rate 17 17 22 Blood Pressure 148/95 H 148/95 H 144/91 H Pulse Oximetry 94 L 94 L 93 L 10/31/17 08:00 10/31/17 12:00 Temperature 98.2 F 98.1 F Pulse Rate 79 85 Respiratory Rate 17 17 Blood Pressure 167/99 H 155/96 H Pulse Oximetry 94 L 93 L Intake & Output 10/30/17 10/31/17 10/31/17 18:59 06:59 18:59 Intake Total 1950 455 / 455 3211.25 / 3211.25 Balance 1950 455 / 455 3211.25 / 3211.25 Weight 96.5 kg Intake: IV 1950 455 / 455 3211.25 / 3211.25 NS Inj 1,000 ML @ 100 mls/hr IV 1645 / 1645 355 / 355 1999 / 1999 .CONT .Q10H [facility] Rx#:[id number] Gentamicin Inj 450 MG In NS Inj 106 / 106 111.25 / 111.25 100 ML @ 100 mls/hr IV.SIG Q24H [facility] Rx#:[id number] NS Inj 1,000 ML @ Wide Open IV. 1000 / 1000 SIG BOLUS [facility] Rx#:[id number] Ancef Inj 2,000 MG In NS Inj 80 200 / 200 100 / 100 100 / 100 ML @ 200 mls/hr IV.SIG Q8H [facility] Rx#:[id number] Other: Date of Last Bowel Movement 10/23/17 Narrative: General patient in no acute distress HEENT extraocular movements are intact, clear oropharyngeal mucosa, no JVD Cardiovascular S1-S2 audible Respiratory clear to auscultation bilaterally Abdomen soft, left-sided flank pain present on palpation. Extremities no lesions noted on the patient's fingernails. Trace edema of the lower extremities Neuro patient can move all 4 extremities, sensation is intact bilaterally Results - Labs CBC & Chem 7: 10/31/17 06:15 10/30/17 05:51 Laboratory Results - last 24 hr 10/31/17 06:15 WBC 15.4 H RBC 4.19 L Hgb 13.0 Hct 38.2 L MCV 91.2 MCH 31.0 MCHC 34.0 RDW 13.9 Plt Count 282 MPV 8.0 Neut % (Auto) 81.1 H Lymph % (Auto) 9.1 [place] % (Auto) 9.1 H Eos % (Auto) 0.4 Baso % (Auto) 0.3 Neut # (Auto) 12.5 H Lymph # (Auto) 1.4 [place] # (Auto) 1.4 H Eos # (Auto) 0.1 Baso # (Auto) 0.0 WBC Differential . Differential Comment Auto diff final Microbiology 10/30/17 14:05 Blood - Peripheral Aerobic Blood Culture - Preliminary No growth in 1 day 10/30/17 14:05 Blood - Peripheral Anaerobic Blood Culture - Preliminary No growth in 1 day 10/29/17 08:33 Blood - Peripheral Aerobic Blood Culture - Final Staphylococcus aureus 10/29/17 08:33 Blood - Peripheral Anaerobic Blood Culture - Preliminary No growth in 2 days 10/29/17 08:38 Blood - Peripheral Aerobic Blood Culture - Final Staphylococcus aureus 10/29/17 08:38 Blood - Peripheral Anaerobic Blood Culture - Preliminary No growth in 2 days 10/28/17 21:12 Blood - Peripheral Aerobic Blood Culture - Final Staphylococcus aureus 10/28/17 21:12 Blood - Peripheral Anaerobic Blood Culture - Preliminary No growth in 3 days 10/27/17 20:50 Blood - Peripheral Aerobic Blood Culture - Final Staphylococcus aureus 10/27/17 20:50 Blood - Peripheral Anaerobic Blood Culture - Preliminary No growth in 4 days 10/27/17 20:15 Blood - Peripheral Aerobic Blood Culture - Final Staphylococcus aureus 10/27/17 20:15 Blood - Peripheral Anaerobic Blood Culture - Preliminary No growth in 4 days - Procedures 10/28/17- RACHEL Assessment and Plan - Assessment (1) Psoas abscess, left Code(s): K68.12 - Psoas muscle abscess Status: Acute (2) Intractable pain Code(s): R52 - Pain, unspecified Status: Acute (3) Hypokalemia Code(s): E87.6 - Hypokalemia Status: Acute (4) Bacteremia due to Staphylococcus aureus Code(s): R78.81 - Bacteremia Status: Acute - Plan Patient is a 62-year-old male with a past medical history of coronary artery disease, status post CABG 5, status post pacemaker placement, and dyslipidemia. The patient presented to the emergency department 3 days of left- sided flank pain. He initially thought he had pulled a muscle while doing yard work. The patient's symptoms were getting worse and he came into our emergency department for evaluation. 1. MSSA bacteremia with left psoas abscess. There has been no fevers over the past 24 hours. Blood pressure is stable. CT scan of the abdomen and pelvis shows a left psoas muscle with findings consistent with a psoas abscess. Blood cultures are positive for staph aureus. Repeat blood cultures were also positive. A repeat CT scan of the abdomen and pelvis shows growing size of the abscess. Surgery was consulted to evaluate the patient. The surgical team is recommending interventional radiology to drain the abscess. A RACHEL was also done which did not show any valvular vegetations or vegetations on the pacemaker lead. He will be continued on IV Ancef and gentamicin as per infectious disease recommendations. Interventional radiology has been consulted to evaluate the patient for drainage of the abscess. N.p.o. past midnight. 2. Coronary artery disease status post CABG/dyslipidemia Continue current medications. Plavix has been held as the patient will require drainage of the abscess likely from interventional radiology. As per the patient he was noncompliant with his aspirin and Plavix and the rest of his medications at home over the past year. No DVT pharmacotherapy prophylaxis as the patient will likely go to the OR for drainage of the abscess tomorrow a.m.
--- NOTE | 2017-10-31 15:55 | P.PNGS ---
Subjective Interval history: Resting in bed Continues to c/o LEFT sided flank pain Physical Exam Vital signs: Vital Signs 10/30/17 16:00 10/30/17 20:00 10/30/17 21:25 Temperature 98.1 F 97.6 F Pulse Rate 94 H 85 Respiratory Rate 18 18 20 Blood Pressure 139/90 146/94 H Pulse Oximetry 95 96 10/30/17 23:53 10/31/17 00:00 10/31/17 04:00 Temperature 98.1 F 98.1 F 98.0 F Pulse Rate 83 83 88 Respiratory Rate 17 17 22 Blood Pressure 148/95 H 148/95 H 144/91 H Pulse Oximetry 94 L 94 L 93 L 10/31/17 08:00 10/31/17 12:00 Temperature 98.2 F 98.1 F Pulse Rate 79 85 Respiratory Rate 17 17 Blood Pressure 167/99 H 155/96 H Pulse Oximetry 94 L 93 L Intake & Output 10/30/17 10/31/17 10/31/17 18:59 06:59 18:59 Intake Total 1950 455 / 455 3211.25 / 3211.25 Balance 1950 455 / 455 3211.25 / 3211.25 Weight 96.5 kg Intake: IV 1950 455 / 455 3211.25 / 3211.25 NS Inj 1,000 ML @ 100 mls/hr IV 1645 / 1645 355 / 355 1999 / 1999 .CONT .Q10H ROXY Rx#:[id number] Gentamicin Inj 450 MG In NS Inj 106 / 106 111.25 / 111.25 100 ML @ 100 mls/hr IV.SIG Q24H ROXY Rx#:[id number] NS Inj 1,000 ML @ Wide Open IV. 1000 / 1000 SIG BOLUS ROXY Rx#:[id number] Ancef Inj 2,000 MG In NS Inj 80 200 / 200 100 / 100 100 / 100 ML @ 200 mls/hr IV.SIG Q8H ROXY Rx#:[id number] Other: Date of Last Bowel Movement 10/23/17 Narrative: Alert and awake LEFT flank tenderness Results - Labs 11/03/17 06:05 11/03/17 06:05 Laboratory Results - last 24 hr 10/31/17 06:15 WBC 15.4 H RBC 4.19 L Hgb 13.0 Hct 38.2 L MCV 91.2 MCH 31.0 MCHC 34.0 RDW 13.9 Plt Count 282 MPV 8.0 Neut % (Auto) 81.1 H Lymph % (Auto) 9.1 [place] % (Auto) 9.1 H Eos % (Auto) 0.4 Baso % (Auto) 0.3 Neut # (Auto) 12.5 H Lymph # (Auto) 1.4 [place] # (Auto) 1.4 H Eos # (Auto) 0.1 Baso # (Auto) 0.0 WBC Differential . Differential Comment Auto diff final - Imaging Imaging: ITS Impressions CT Consultation 10/28/17 00:00 CONCLUSION: 1. A few dots of air identified in the enlarged left psoas with no obvious drainable fluid collection. Findings may represent an inflammatory phlegmon which could develop into an abscess over the next few days. 2. In addition, the patient was on Plavix therapy. His last dose was administered yesterday. This will have to be held for at least 3 days prior to any intervention. 3. Discussed with Dr. Demarco from infectious disease at the time of this dictation. Abdomen/Pelvis CT 10/29/17 00:00 CONCLUSION: 1. Again a large hypodense area in the left psoas muscle with tiny locules of air, increased from the previous study presumably infection or infected hematoma. 2. Bilateral inguinal hernias right greater than left containing fat Assessment and Plan - Assessment (1) Psoas abscess, left Code(s): K68.12 - Psoas muscle abscess Status: Acute Plan: 62 year old male with LEFT psoas muscle abscess -ID following---s/p RACHEL -Afebrile overnight -WBC slightly elevated now; 15k -Awaiting IR eval for possible drainage -Diet as tolerated -GS will follow PRN over the weekend; please call with any concerns No changes; still has flank pain Await IR attempt at drainage The exam, history, and the medical decision-making described in the above note were completed with the assistance of the mid-level provider. I reviewed and agree with the findings presented. I attest that I had a [id number] encounter with the patient on the same day, and personally performed and documented my assessment and findings in the medical record. (2) Acute flank pain Code(s): R10.9 - Unspecified abdominal pain Status: Acute
[2017-11-01] MEDS: Sod Chloride 0.9% Inj 1,000 ML IV.CONT SCH ×5 (00:01→22:32)
[2017-11-01] MEDS: Morphine Sulfate Inj 2 MG/ML Vial IV.PUSH PRN (01:45)
[2017-11-01 05:33] LABS: Baso % (Auto) 0.2 % (0.0-2.0); Eos # (Auto) 0.2 th/mm3 (0.0-0.4); Eos % (Auto) 1.3 % (0.0-4.0); Hematocrit 37.9 % (39.0-51.0); Hemoglobin 12.7 gm/dL (13.0-17.0); Lymph # (Auto) 1.7 th/mm3 (1.0-4.8); Lymph % (Auto) 11.6 % (9.0-44.0); Mean Corpuscular HGB Conc 33.6 % (32.0-36.0); Mean Corpuscular Volume 92.3 fL (80.0-100.0); Mean Platelet Volume 7.5 fL (7.0-11.0); Mono # (Auto) 1.4 th/mm3 (0.0-0.9); Mono % (Auto) 9.5 % (0.0-8.0); Neut # (Auto) 11.1 th/mm3 (1.8-7.7); Neut % (Auto) 77.4 % (16.0-70.0); Platelet Count 310 th/mm3 (150-450); Red Blood Count 4.11 mil/mm3 (4.50-5.90); Red Cell Distribution Width 14.2 % (11.6-17.2); White Blood Count 14.3 th/mm3 (4.0-11.0)
[2017-11-01 06:21] LABS: Calcium 8.3 mg/dL (8.5-10.1); Carbon Dioxide 30.6 meq/L (21.0-32.0); Magnesium 2.1 mg/dL (1.5-2.5)
[2017-11-01 06:31] LABS: Potassium 2.7 meq/L (3.5-5.1)
[2017-11-01] MEDS ORDERED: Potassium Chloride 25 MEQ Effervescent Tablet PO ONE ×2 (06:53→16:07)
[2017-11-01] MEDS: Potassium Chlor 10 mEq Premix 10 MEQ/100 ML PIGGYBACK IV.SIG SCH ×3 (09:48→12:18)
[2017-11-01] MEDS: Amiodarone 200 MG Tablet PO SCH (09:54)
[2017-11-01] MEDS: Senna/Docusate Sodium 8.6/50 MG Tablet PO SCH ×2 (09:54→21:29)
[2017-11-01] MEDS: Furosemide 40 MG Tablet PO SCH (09:54)
[2017-11-01] MEDS: Lisinopril 10 MG Tablet PO SCH (09:54)
[2017-11-01] MEDS: ceFAZolin Inj 2,000 MG in Sodium Chlor 0.9% Inj 80 ML IV.SIG SCH ×4 (09:55→15:45)
[2017-11-01] MEDS: Sod Chloride 0.9% Inj 1,000 ML IV.SIG SCH ×2 (12:18→12:20)
[2017-11-01] MEDS: GENTAMICIN IV.SIG SCH (12:19)
[2017-11-01] MEDS: SODIUM CHLOR 0.9% IV.SIG SCH (12:19)
--- NOTE | 2017-11-01 16:03 | P.PNIM ---
Subjective Interval history: She continues to have left-sided flank pain. He does not have any other complaints. Physical Exam Vital signs: Vital Signs 10/31/17 20:00 11/01/17 00:00 11/01/17 04:00 Temperature 98.9 F 98 F 98.1 F Pulse Rate 94 H 89 82 Respiratory Rate 17 18 15 Blood Pressure 152/96 H 144/78 H 154/97 H Pulse Oximetry 98 96 97 11/01/17 08:00 11/01/17 12:00 Temperature 98.0 F 99.4 F Pulse Rate 80 87 Respiratory Rate 21 20 Blood Pressure 154/73 H 146/85 H Pulse Oximetry 94 L 93 L Intake & Output 10/31/17 11/01/17 11/01/17 18:59 06:59 18:59 Intake Total 3671.25 / 3671.25 1150 / 1150 2511.25 / 2511.25 Output Total 1400 / 1400 1100 / 1100 Balance 2271.25 / 2271.25 50 / 50 2511.25 / 2511.25 Weight 94.9 kg Intake: IV 3311.25 / 3311.25 1100 / 1100 2511.25 / 2511.25 NS Inj 1,000 ML @ 100 mls/hr IV 2000 / 2000 1000 / 1000 1000 / 1000 .CONT .Q10H ROXY Rx#:[id number] Gentamicin Inj 450 MG In NS Inj 111.25 / 111.25 111.25 / 111.25 100 ML @ 100 mls/hr IV.SIG Q24H ROXY Rx#:[id number] KCl 10 mEq Premix Inj 10 meq In 300 / 300 100 ml @ 100 mls/hr IV.SIG Q1H ROXY Rx#:[id number] NS Inj 1,000 ML @ Wide Open IV. 1000 / 1000 1000 / 1000 SIG BOLUS ROXY Rx#:[id number] Ancef Inj 2,000 MG In NS Inj 80 200 / 200 100 / 100 100 / 100 ML @ 200 mls/hr IV.SIG Q8H ROXY Rx#:[id number] Oral 360 / 360 Other 50 / 50 Output: Urine 1400 / 1400 1100 / 1100 Other: # Bowel Movements 0 Narrative: General patient in no acute distress HEENT extraocular movements are intact, clear oropharyngeal mucosa, no JVD Cardiovascular S1-S2 audible Respiratory clear to auscultation bilaterally Abdomen soft, left-sided flank pain present on palpation. Extremities no lesions noted on the patient's fingernails. Trace edema of the lower extremities Neuro patient can move all 4 extremities, sensation is intact bilaterally Results - Labs CBC & Chem 7: 11/01/17 04:55 11/01/17 04:55 Laboratory Results - last 24 hr 11/01/17 11/01/17 04:55 04:55 WBC 14.3 H RBC 4.11 L Hgb 12.7 L Hct 37.9 L MCV 92.3 MCH 31.0 MCHC 33.6 RDW 14.2 Plt Count 310 MPV 7.5 Neut % (Auto) 77.4 H Lymph % (Auto) 11.6 [place] % (Auto) 9.5 H Eos % (Auto) 1.3 Baso % (Auto) 0.2 Neut # (Auto) 11.1 H Lymph # (Auto) 1.7 [place] # (Auto) 1.4 H Eos # (Auto) 0.2 Baso # (Auto) 0.0 WBC Differential . Differential Comment Auto diff final Sodium 138 Potassium 2.7 L* Chloride 97 L Carbon Dioxide 30.6 Anion Gap 10 BUN 13 Creatinine 0.89 Estimated GFR 87 L Random Glucose 99 Calcium 8.3 L Magnesium 2.1 Microbiology 10/31/17 06:15 Blood - Peripheral Aerobic Blood Culture - Preliminary gram positive cocci 10/31/17 06:15 Blood - Peripheral Anaerobic Blood Culture - Preliminary No growth in 1 day 10/30/17 14:05 Blood - Peripheral Aerobic Blood Culture - Preliminary No growth in 2 days 10/30/17 14:05 Blood - Peripheral Anaerobic Blood Culture - Preliminary No growth in 2 days 10/29/17 08:33 Blood - Peripheral Aerobic Blood Culture - Final Staphylococcus aureus 10/29/17 08:33 Blood - Peripheral Anaerobic Blood Culture - Preliminary No growth in 3 days 10/29/17 08:38 Blood - Peripheral Aerobic Blood Culture - Final Staphylococcus aureus 10/29/17 08:38 Blood - Peripheral Anaerobic Blood Culture - Preliminary No growth in 3 days 10/28/17 21:12 Blood - Peripheral Aerobic Blood Culture - Final Staphylococcus aureus 10/28/17 21:12 Blood - Peripheral Anaerobic Blood Culture - Preliminary No growth in 4 days 10/27/17 20:50 Blood - Peripheral Aerobic Blood Culture - Final Staphylococcus aureus 10/27/17 20:50 Blood - Peripheral Anaerobic Blood Culture - Final No growth in 5 days 10/27/17 20:15 Blood - Peripheral Aerobic Blood Culture - Final Staphylococcus aureus 10/27/17 20:15 Blood - Peripheral Anaerobic Blood Culture - Final No growth in 5 days - Procedures 10/28/17- RACHEL Assessment and Plan - Assessment (1) Psoas abscess, left Code(s): K68.12 - Psoas muscle abscess Status: Acute (2) Intractable pain Code(s): R52 - Pain, unspecified Status: Acute (3) Hypokalemia Code(s): E87.6 - Hypokalemia Status: Acute (4) Bacteremia due to Staphylococcus aureus Code(s): R78.81 - Bacteremia Status: Acute - Plan Patient is a 62-year-old male with a past medical history of coronary artery disease, status post CABG 5, status post pacemaker placement, and dyslipidemia. The patient presented to the emergency department 3 days of left- sided flank pain. He initially thought he had pulled a muscle while doing yard work. The patient's symptoms were getting worse and he came into our emergency department for evaluation. 1. MSSA bacteremia with left psoas abscess. There has been no fevers over the past 24 hours. Blood pressure is stable. CT scan of the abdomen and pelvis shows a left psoas muscle with findings consistent with a psoas abscess. Blood cultures are positive for staph aureus. Repeat blood cultures are still positive. A repeat CT scan of the abdomen and pelvis shows growing size of the abscess. The surgical team is recommending interventional radiology to drain the abscess. A RACHEL was also done which did not show any valvular vegetations or vegetations on the pacemaker lead. He will be continued on IV Ancef and gentamicin as per infectious disease recommendations. Interventional radiology has been consulted to evaluate the patient for drainage of the abscess. Plavix has been held. The patient will possibly have IR drain the abscess on Friday. 2. Coronary artery disease status post CABG/dyslipidemia Continue current medications. Plavix has been held as the patient will require drainage of the abscess likely from interventional radiology. As per the patient he was noncompliant with his aspirin and Plavix and the rest of his medications at home over the past year. No DVT pharmacotherapy prophylaxis as the patient will likely go to the OR for drainage of the abscess tomorrow a.m.
[2017-11-01] MEDS ORDERED: Lisinopril 5 MG Tablet PO ONE (16:17)
[2017-11-02] MEDS: ceFAZolin Inj 2,000 MG in Sodium Chlor 0.9% Inj 80 ML IV.SIG SCH ×3 (00:22→15:10)
[2017-11-02] MEDS: Sod Chloride 0.9% Inj 1,000 ML IV.CONT SCH ×5 (00:24→17:17)
[2017-11-02 07:40] LABS: Calcium 8.4 mg/dL (8.5-10.1); Carbon Dioxide 29.5 meq/L (21.0-32.0); Magnesium 2.1 mg/dL (1.5-2.5); Potassium 3.2 meq/L (3.5-5.1)
[2017-11-02] MEDS: Senna/Docusate Sodium 8.6/50 MG Tablet PO SCH ×2 (08:48→21:04)
[2017-11-02] MEDS: Furosemide 40 MG Tablet PO SCH (08:48)
[2017-11-02] MEDS: Amiodarone 200 MG Tablet PO SCH (08:48)
[2017-11-02] MEDS: Lisinopril 20 MG Tablet PO SCH (08:48)
--- NOTE | 2017-11-02 11:13 | P.PNID ---
Subjective Remarks: Patient is a 62-year-old male, presented to the hospital complaining of 4-5 day history of left-sided flank pain. He was apparently working in the yard, pulling weeds and he was doing this for 2 days. About 4 days prior to admission he started experiencing left-sided flank, side pain and the pain was quite severe that he was not able to do much. He denies any fever chills or sweats. He has not had any nausea or vomiting. He has not had any problem with his bowels. He has been voiding without any problem. Patient has not had any treatment for any infection in the last several months. On presentation he has had some low-grade temps. His WBC is normal. CT of the abdomen and pelvis showing asymmetry in his psoas muscle with the left being big and there are some foci of gas. There is no other abnormality seen. Blood cultures done on admission are now reported as growing gram-positive cocci in clusters. His urinalysis is unremarkable. Patient has known coronary artery disease and had undergone CABG in 2016. He stated that his pacemaker was placed about a year before his CABG. This was done in [place]. 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 Infectious disease consultation has been requested to evaluate the patient with positive blood culture. Patient still complaining of significant pain in the left flank. Notes reviewed Afebrile Pain is better C/O joint pains - states he takes meloxicam daily All BC (+) MSSA - last +BC 10/31 WBC a little lower Antibiotics: Ancef Gentamicin Lines: PIV Past Medical History: Coronary artery disease High cholesterol Pacemaker Hx of CABG Allergies/Adverse Reactions: Allergies No Known Allergies Allergy (Unverified 10/25/17 22:42) Objective Vital Signs 11/01/17 12:00 11/01/17 16:00 11/01/17 20:00 Temperature 99.4 F 99.1 F 97.9 F Pulse Rate 87 94 H 106 H Respiratory Rate 20 20 18 Blood Pressure 146/85 H 136/94 H 109/70 Pulse Oximetry 93 L 96 92 L 11/02/17 00:00 11/02/17 04:00 11/02/17 08:00 Temperature 98.2 F 98.7 F 98.8 F Pulse Rate 85 93 H 85 Respiratory Rate 18 18 17 Blood Pressure 117/85 146/86 H 154/94 H Pulse Oximetry 95 97 93 L Intake & Output 11/01/17 11/02/17 11/02/17 18:59 06:59 18:59 Intake Total 3891.25 / 3891.25 3060 / 3060 1100 / 1100 Output Total 800 / 800 900 / 900 Balance 3091.25 / 3091.25 2160 / 2160 1100 / 1100 Weight 95.2 kg Intake: IV 3411.25 / 3411.25 2100 / 2100 1100 / 1100 NS Inj 1,000 ML @ 125 mls/hr IV 1800 / 1800 1000 / 1000 1000 / 1000 .CONT .Q8H ROXY Rx#:[id number] Gentamicin Inj 450 MG In NS Inj 111.25 / 111.25 100 ML @ 100 mls/hr IV.SIG Q24H ROXY Rx#:[id number] KCl 10 mEq Premix Inj 10 meq In 300 / 300 100 ml @ 100 mls/hr IV.SIG Q1H ROXY Rx#:[id number] NS Inj 1,000 ML @ Wide Open IV. 1000 / 1000 1000 / 1000 SIG BOLUS ROXY Rx#:[id number] Ancef Inj 2,000 MG In NS Inj 80 200 / 200 100 / 100 100 / 100 ML @ 200 mls/hr IV.SIG Q8H ROXY Rx#:[id number] Oral 480 / 480 960 / 960 Output: Urine 800 / 800 900 / 900 Other: Date of Last Bowel Movement 11/02/17 # Bowel Movements 2 10/31/17 06:15 Blood - Peripheral Aerobic Blood Culture - Preliminary Staphylococcus aureus 10/31/17 06:15 Blood - Peripheral Anaerobic Blood Culture - Preliminary No growth in 2 days 10/30/17 14:05 Blood - Peripheral Aerobic Blood Culture - Preliminary No growth in 3 days 10/30/17 14:05 Blood - Peripheral Anaerobic Blood Culture - Preliminary No growth in 3 days 10/29/17 08:33 Blood - Peripheral Aerobic Blood Culture - Final Staphylococcus aureus 10/29/17 08:33 Blood - Peripheral Anaerobic Blood Culture - Preliminary No growth in 4 days 10/29/17 08:38 Blood - Peripheral Aerobic Blood Culture - Final Staphylococcus aureus 10/29/17 08:38 Blood - Peripheral Anaerobic Blood Culture - Preliminary No growth in 4 days 10/28/17 21:12 Blood - Peripheral Aerobic Blood Culture - Final Staphylococcus aureus 10/28/17 21:12 Blood - Peripheral Anaerobic Blood Culture - Final No growth in 5 days 11/02/17 06:48 Blood - Peripheral Aerobic Blood Culture - Pending 11/02/17 06:48 Blood - Peripheral Anaerobic Blood Culture - Pending 10/27/17 20:50 Blood - Peripheral Aerobic Blood Culture - Final Staphylococcus aureus 10/27/17 20:50 Blood - Peripheral Anaerobic Blood Culture - Final No growth in 5 days 10/27/17 20:15 Blood - Peripheral Aerobic Blood Culture - Final Staphylococcus aureus 10/27/17 20:15 Blood - Peripheral Anaerobic Blood Culture - Final No growth in 5 days Lab - Hematology Results 11/01/17 04:55 WBC 14.3 H RBC 4.11 L Hgb 12.7 L Hct 37.9 L MCV 92.3 MCH 31.0 MCHC 33.6 RDW 14.2 Plt Count 310 MPV 7.5 Neut % (Auto) 77.4 H Lymph % (Auto) 11.6 [place] % (Auto) 9.5 H Eos % (Auto) 1.3 Baso % (Auto) 0.2 Neut # (Auto) 11.1 H Lymph # (Auto) 1.7 [place] # (Auto) 1.4 H Eos # (Auto) 0.2 Baso # (Auto) 0.0 WBC Differential . Differential Comment Auto diff final Lab - Chemistry Results 11/01/17 11/02/17 04:55 06:48 Sodium 138 136 Potassium 2.7 L* 3.2 L Chloride 97 L 99 Carbon Dioxide 30.6 29.5 Anion Gap 10 8 BUN 13 15 Creatinine 0.89 0.98 Estimated GFR 87 L 78 L Random Glucose 99 95 Calcium 8.3 L 8.4 L Magnesium 2.1 2.1 Imaging: ITS Impressions CT Consultation 10/28/17 00:00 CONCLUSION: 1. A few dots of air identified in the enlarged left psoas with no obvious drainable fluid collection. Findings may represent an inflammatory phlegmon which could develop into an abscess over the next few days. 2. In addition, the patient was on Plavix therapy. His last dose was administered yesterday. This will have to be held for at least 3 days prior to any intervention. 3. Discussed with Dr. Demarco from infectious disease at the time of this dictation. Abdomen/Pelvis CT 10/29/17 00:00 CONCLUSION: 1. Again a large hypodense area in the left psoas muscle with tiny locules of air, increased from the previous study presumably infection or infected hematoma. 2. Bilateral inguinal hernias right greater than left containing fat Physical Exam: GENERAL: awake and alert, NAD SKIN: Warm and dry. No generalized rash HEAD: Atraumatic. Normocephalic. No temporal wasting, or tenderness. EYES: [place] conjunctiva. No petechia or hemorrhage. No scleral icterus. No injection or drainage. EARS, NOSE AND THROAT: Nose without bleeding or purulent nasal discharge. No sinus tenderness. Mucous membranes pink and moist. No oral lesions noted. NECK: Trachea midline. Supple and not tender, no meningeal signs CARDIOVASCULAR: Regular rate and rhythm. No murmurs, rubs or gallops heard. Pacemaker in L upper chest with no evidence of infection RESPIRATORY: Clear to auscultation. Breath sounds equal bilaterally. No rales , wheezing or rhonchi ABDOMEN: Soft, globular, nondistended, with tenderness in LLQ. Bowel sounds present and normoactive. No guarding. No rebound. No organomegaly. EXTREMITIES: No clubbing, cyanosis, or edema. No joint effusion, has good ROM. No calf tenderness. Well perfused and warm. NEUROLOGICAL: Grossly non-focal. PSYCHIATRIC: Normal affect, calm and cooperative. LINE: No evidence of infection Assessment and Plan - Plan Impression Staph aureus sepsis, worrisome foe endovascular focus, IE, pacer L psoas fluid collection likely abscess, hematogenous spread S/P CABG 2016 S/P Pacemaker 2015 Recommendation Repeat BC to document clearing Continue IV Ancef IV Gentamicin - follow creatinine CT lumbar spine - evaluate back pain, and ?extension Follow C/S and adjust Abx Monitor progress Explained plan to the patient
[2017-11-02] MEDS: GENTAMICIN IV.SIG SCH (12:21)
[2017-11-02] MEDS: SODIUM CHLOR 0.9% IV.SIG SCH (12:21)
--- NOTE | 2017-11-02 14:59 | CT ---
EXAM DATE: 11/02/2017 2:45 PM EDT AGE/SEX: 62 years / Male INDICATIONS: Lumbago, Psoas abscess, left side flank pain CLINICAL DATA: This is the patient's subsequent encounter. Patient reports that signs and symptoms h ave been present for 4 - 6 days and indicates a pain score of 8/10. MEDICAL/SURGICAL HISTORY: Renal calculi. Coronary artery disease CABG. Pacemaker. RADIATION DOSE: 35.86 CTDI (mGy) COMPARISON: No prior exams available for comparison. TECHNIQUE: Contiguous axial images were acquired with a multirow detector CT scanner after intraveno us administration of 97ML ml Omnipaque 350 (iohexol) nonionic water-soluble contrast as a single exa m dose. Multiplanar reconstructions in the sagittal and coronal plane were also performed. Using aut omated exposure control and adjustment of the mA and/or kV according to patient size, radiation dose was kept as low as reasonably achievable to obtain optimal diagnostic quality images. DICOM format i mage data is available electronically for review and comparison. FINDINGS: Alignment is normal on sagittal imaging, with mild dextroscoliosis identified centered at L2-3 on cor onal imaging. There is a large rim-enhancing fluid collection containing a small locule of air enlarg ing the left psoas muscle. This is characteristic of a psoas abscess and measures approximately 3.2 x 4.8 cm in transverse and AP dimension on axial image 64 series 4. There is mild bilateral hydrourete r identified. There is aneurysmal dilatation of the left common iliac artery up to 3.1 cm.. There is vacuum disc phenomenon at L4-5 and T12-L1 with severe disc space narrowing at L2-3 demonstrate promin ent endplate sclerosis and osteophytosis, severe disc space narrowing at T12-L1 and moderate disc spa ce narrowing at L4-5. Multilevel osteophyte formation is identified. There are no compression deformi ties. Moderate to severe facet hypertrophic changes are seen. CONCLUSION: 1. Left iliac artery aneurysm. 2. Degenerative changes and scoliosis. 3. Left psoas abscess identified extending 11 cm in cephalocaudal dimension. 4. Bilateral hydroureter. Electronically signed by: Jonathan Mejias MD 11/02/2017 2:57 PM EDT
--- NOTE | 2017-11-02 15:01 | P.PNIM ---
Subjective Interval history: Patient complains of left-sided flank pain. Otherwise he does not have any other complaints. Physical Exam Vital signs: Vital Signs 11/01/17 16:00 11/01/17 20:00 11/02/17 00:00 Temperature 99.1 F 97.9 F 98.2 F Pulse Rate 94 H 106 H 85 Respiratory Rate 20 18 18 Blood Pressure 136/94 H 109/70 117/85 Pulse Oximetry 96 92 L 95 11/02/17 04:00 11/02/17 08:00 11/02/17 12:00 Temperature 98.7 F 98.8 F 98.3 F Pulse Rate 93 H 85 88 Respiratory Rate 18 17 17 Blood Pressure 146/86 H 154/94 H 112/72 Pulse Oximetry 97 93 L 91 L Intake & Output 11/01/17 11/02/17 11/02/17 18:59 06:59 18:59 Intake Total 3891.25 / 3891.25 3060 / 3060 1211.25 / 1211.25 Output Total 800 / 800 900 / 900 Balance 3091.25 / 3091.25 2160 / 2160 1211.25 / 1211.25 Weight 95.2 kg Intake: IV 3411.25 / 3411.25 2100 / 2100 1211.25 / 1211.25 NS Inj 1,000 ML @ 125 mls/hr IV 1800 / 1800 1000 / 1000 1000 / 1000 .CONT .Q8H ROXY Rx#:[id number] Gentamicin Inj 450 MG In NS Inj 111.25 / 111.25 111.25 / 111.25 100 ML @ 100 mls/hr IV.SIG Q24H ROXY Rx#:[id number] KCl 10 mEq Premix Inj 10 meq In 300 / 300 100 ml @ 100 mls/hr IV.SIG Q1H ROXY Rx#:[id number] NS Inj 1,000 ML @ Wide Open IV. 1000 / 1000 1000 / 1000 SIG BOLUS ROXY Rx#:[id number] Ancef Inj 2,000 MG In NS Inj 80 200 / 200 100 / 100 100 / 100 ML @ 200 mls/hr IV.SIG Q8H ROXY Rx#:[id number] Oral 480 / 480 960 / 960 Output: Urine 800 / 800 900 / 900 Other: Date of Last Bowel Movement 11/02/17 # Bowel Movements 2 Narrative: General patient in no acute distress HEENT extraocular movements are intact, clear oropharyngeal mucosa, no JVD Cardiovascular S1-S2 audible Respiratory clear to auscultation bilaterally Abdomen soft, left-sided flank pain present on palpation. Extremities no lesions noted on the patient's fingernails. Trace edema of the lower extremities Neuro patient can move all 4 extremities, sensation is intact bilaterally Results - Labs CBC & Chem 7: 11/01/17 04:55 11/02/17 06:48 Laboratory Results - last 24 hr 11/01/17 11/02/17 22:05 06:48 Sodium 136 Potassium 3.2 L Chloride 99 Carbon Dioxide 29.5 Anion Gap 8 BUN 15 Creatinine 0.98 Estimated GFR 78 L Random Glucose 95 Calcium 8.4 L Magnesium 2.1 Random Gentamicin 2.5 Microbiology 10/31/17 06:15 Blood - Peripheral Aerobic Blood Culture - Preliminary Staphylococcus aureus 10/31/17 06:15 Blood - Peripheral Anaerobic Blood Culture - Preliminary No growth in 2 days 10/30/17 14:05 Blood - Peripheral Aerobic Blood Culture - Preliminary No growth in 3 days 10/30/17 14:05 Blood - Peripheral Anaerobic Blood Culture - Preliminary No growth in 3 days 10/29/17 08:33 Blood - Peripheral Aerobic Blood Culture - Final Staphylococcus aureus 10/29/17 08:33 Blood - Peripheral Anaerobic Blood Culture - Preliminary No growth in 4 days 10/29/17 08:38 Blood - Peripheral Aerobic Blood Culture - Final Staphylococcus aureus 10/29/17 08:38 Blood - Peripheral Anaerobic Blood Culture - Preliminary No growth in 4 days 10/28/17 21:12 Blood - Peripheral Aerobic Blood Culture - Final Staphylococcus aureus 10/28/17 21:12 Blood - Peripheral Anaerobic Blood Culture - Final No growth in 5 days 10/27/17 20:50 Blood - Peripheral Aerobic Blood Culture - Final Staphylococcus aureus 10/27/17 20:50 Blood - Peripheral Anaerobic Blood Culture - Final No growth in 5 days 10/27/17 20:15 Blood - Peripheral Aerobic Blood Culture - Final Staphylococcus aureus 10/27/17 20:15 Blood - Peripheral Anaerobic Blood Culture - Final No growth in 5 days - Procedures 10/28/17- RACHEL Assessment and Plan - Assessment (1) Psoas abscess, left Code(s): K68.12 - Psoas muscle abscess Status: Acute (2) Intractable pain Code(s): R52 - Pain, unspecified Status: Acute (3) Hypokalemia Code(s): E87.6 - Hypokalemia Status: Acute (4) Bacteremia due to Staphylococcus aureus Code(s): R78.81 - Bacteremia Status: Acute - Plan Patient is a 62-year-old male with a past medical history of coronary artery disease, status post CABG 5, status post pacemaker placement, and dyslipidemia. The patient presented to the emergency department 3 days of left- sided flank pain. He initially thought he had pulled a muscle while doing yard work. The patient's symptoms were getting worse and he came into our emergency department for evaluation. 1. MSSA bacteremia with left psoas abscess. There has been no fevers over the past day. Blood pressure is stable. CT scan of the abdomen and pelvis shows a left psoas muscle with findings consistent with a psoas abscess. Blood cultures are positive for staph aureus. Repeat blood cultures are still positive. A repeat CT scan of the abdomen and pelvis shows growing size of the abscess. The surgical team is recommending interventional radiology to drain the abscess. A RACHEL was also done which did not show any valvular vegetations or vegetations on the pacemaker lead. He will be continued on IV Ancef and gentamicin as per infectious disease recommendations. Interventional radiology has been consulted to evaluate the patient for drainage of the abscess. Plavix has been held. The patient will possibly have IR drain the abscess on Friday. There is no change in the patient 's current management. Continue IV antibiotics and possible drainage of the abscess by interventional radiology tomorrow. A CT scan of the spine was ordered today and should be followed up. 2. Coronary artery disease status post CABG/dyslipidemia Continue current medications. Plavix has been held as the patient will require drainage of the abscess likely from interventional radiology tomorrow. As per the patient he was noncompliant with his aspirin and Plavix and the rest of his medications at home over the past year. No DVT pharmacotherapy prophylaxis as the patient will likely go to the OR for drainage of the abscess tomorrow a.m.
[2017-11-03] MEDS: ceFAZolin Inj 2,000 MG in Sodium Chlor 0.9% Inj 80 ML IV.SIG SCH ×3 (00:50→16:27)
[2017-11-03] MEDS: Sod Chloride 0.9% Inj 1,000 ML IV.CONT SCH ×5 (04:31→17:32)
[2017-11-03 07:18] LABS: Baso % (Auto) 0.2 % (0.0-2.0); Eos # (Auto) 0.2 th/mm3 (0.0-0.4); Eos % (Auto) 1.7 % (0.0-4.0); Hematocrit 34.4 % (39.0-51.0); Hemoglobin 11.6 gm/dL (13.0-17.0); Lymph # (Auto) 1.3 th/mm3 (1.0-4.8); Lymph % (Auto) 10.9 % (9.0-44.0); Mean Corpuscular HGB Conc 33.8 % (32.0-36.0); Mean Corpuscular Hemoglobin 31.1 pg (27.0-34.0); Mean Corpuscular Volume 91.8 fL (80.0-100.0); Mean Platelet Volume 7.3 fL (7.0-11.0); Mono # (Auto) 1.3 th/mm3 (0.0-0.9); Mono % (Auto) 10.4 % (0.0-8.0); Neut # (Auto) 9.3 th/mm3 (1.8-7.7); Neut % (Auto) 76.8 % (16.0-70.0); Platelet Count 344 th/mm3 (150-450); Red Blood Count 3.75 mil/mm3 (4.50-5.90); Red Cell Distribution Width 13.7 % (11.6-17.2); White Blood Count 12.2 th/mm3 (4.0-11.0)
[2017-11-03 07:42] LABS: Calcium 8.7 mg/dL (8.5-10.1); Carbon Dioxide 28.6 meq/L (21.0-32.0); Magnesium 1.8 mg/dL (1.5-2.5); Potassium 3.2 meq/L (3.5-5.1)
[2017-11-03] MEDS: Lisinopril 20 MG Tablet PO SCH (08:42)
[2017-11-03] MEDS: Furosemide 40 MG Tablet PO SCH (08:42)
[2017-11-03] MEDS: Amiodarone 200 MG Tablet PO SCH (08:43)
[2017-11-03] MEDS: Senna/Docusate Sodium 8.6/50 MG Tablet PO SCH ×2 (08:43→20:52)
--- NOTE | 2017-11-03 09:12 | P.PNID ---
Subjective Remarks: Patient is a 62-year-old male, presented to the hospital complaining of 4-5 day history of left-sided flank pain. He was apparently working in the yard, pulling weeds and he was doing this for 2 days. About 4 days prior to admission he started experiencing left-sided flank, side pain and the pain was quite severe that he was not able to do much. He denies any fever chills or sweats. He has not had any nausea or vomiting. He has not had any problem with his bowels. He has been voiding without any problem. Patient has not had any treatment for any infection in the last several months. On presentation he has had some low-grade temps. His WBC is normal. CT of the abdomen and pelvis showing asymmetry in his psoas muscle with the left being big and there are some foci of gas. There is no other abnormality seen. Blood cultures done on admission are now reported as growing gram-positive cocci in clusters. His urinalysis is unremarkable. Patient has known coronary artery disease and had undergone CABG in 2016. He stated that his pacemaker was placed about a year before his CABG. This was done in [place]. Patient has not had any follow-up with any pulp tester. Infectious disease consultation has been requested to evaluate the patient with positive blood culture. Patient still complaining of significant pain in the left flank. Notes reviewed Afebrile Pain is better For procedure today Lumbar CT noted All BC (+) MSSA - last +BC 10/31 WBC a little lower Denies urinary complaints Antibiotics: Ancef Gentamicin Lines: PIV Past Medical History: Coronary artery disease High cholesterol Pacemaker Hx of CABG Allergies/Adverse Reactions: Allergies No Known Allergies Allergy (Unverified 10/25/17 22:42) Objective Vital Signs 11/02/17 12:00 11/02/17 16:00 11/02/17 20:00 Temperature 98.3 F 98.0 F 99.3 F Pulse Rate 88 93 H 96 H Respiratory Rate 17 17 18 Blood Pressure 112/72 125/78 134/79 Pulse Oximetry 91 L 93 L 96 11/03/17 00:00 11/03/17 04:00 Temperature 98.6 F 98.7 F Pulse Rate 90 94 H Respiratory Rate 18 18 Blood Pressure 113/81 153/97 H Pulse Oximetry 97 97 Intake & Output 11/02/17 11/03/17 11/03/17 18:59 06:59 18:59 Intake Total 3031.25 / 3031.25 1870 / 1870 600 / 600 Output Total 2059 900 / 900 Balance 971.25 / 971.25 970 / 970 600 / 600 Intake: IV 2311.25 / 2311.25 1100 / 1100 600 / 600 NS Inj 1,000 ML @ 125 mls/hr IV 2000 / 2000 1000 / 1000 500 / 500 .CONT .Q8H ROXY Rx#:[id number] Gentamicin Inj 450 MG In NS Inj 111.25 / 111.25 100 ML @ 100 mls/hr IV.SIG Q24H ROXY Rx#:[id number] Ancef Inj 2,000 MG In NS Inj 80 200 / 200 100 / 100 100 / 100 ML @ 200 mls/hr IV.SIG Q8H ROXY Rx#:[id number] Oral 720 / 720 770 / 770 Output: Urine 2059 / 2059 900 / 900 Other: Date of Last Bowel Movement 11/03/17 # Bowel Movements 0 2 11/03/17 06:00 Blood - Peripheral Aerobic Blood Culture - Pending 11/03/17 06:00 Blood - Peripheral Anaerobic Blood Culture - Pending 10/31/17 06:15 Blood - Peripheral Aerobic Blood Culture - Preliminary Staphylococcus aureus 10/31/17 06:15 Blood - Peripheral Anaerobic Blood Culture - Preliminary No growth in 2 days 10/30/17 14:05 Blood - Peripheral Aerobic Blood Culture - Preliminary No growth in 3 days 10/30/17 14:05 Blood - Peripheral Anaerobic Blood Culture - Preliminary No growth in 3 days 10/29/17 08:33 Blood - Peripheral Aerobic Blood Culture - Final Staphylococcus aureus 10/29/17 08:33 Blood - Peripheral Anaerobic Blood Culture - Preliminary No growth in 4 days 10/29/17 08:38 Blood - Peripheral Aerobic Blood Culture - Final Staphylococcus aureus 10/29/17 08:38 Blood - Peripheral Anaerobic Blood Culture - Preliminary No growth in 4 days 10/28/17 21:12 Blood - Peripheral Aerobic Blood Culture - Final Staphylococcus aureus 10/28/17 21:12 Blood - Peripheral Anaerobic Blood Culture - Final No growth in 5 days 11/02/17 06:48 Blood - Peripheral Aerobic Blood Culture - Pending 11/02/17 06:48 Blood - Peripheral Anaerobic Blood Culture - Pending 10/27/17 20:50 Blood - Peripheral Aerobic Blood Culture - Final Staphylococcus aureus 10/27/17 20:50 Blood - Peripheral Anaerobic Blood Culture - Final No growth in 5 days 10/27/17 20:15 Blood - Peripheral Aerobic Blood Culture - Final Staphylococcus aureus 10/27/17 20:15 Blood - Peripheral Anaerobic Blood Culture - Final No growth in 5 days Lab - Hematology Results 11/03/17 06:05 WBC 12.2 H RBC 3.75 L Hgb 11.6 L Hct 34.4 L MCV 91.8 MCH 31.1 MCHC 33.8 RDW 13.7 Plt Count 344 MPV 7.3 Neut % (Auto) 76.8 H Lymph % (Auto) 10.9 [place] % (Auto) 10.4 H Eos % (Auto) 1.7 Baso % (Auto) 0.2 Neut # (Auto) 9.3 H Lymph # (Auto) 1.3 [place] # (Auto) 1.3 H Eos # (Auto) 0.2 Baso # (Auto) 0.0 WBC Differential . Differential Comment Auto diff final Lab - Chemistry Results 11/02/17 11/03/17 06:48 06:05 Sodium 136 135 L Potassium 3.2 L 3.2 L Chloride 99 99 Carbon Dioxide 29.5 28.6 Anion Gap 8 7 BUN 15 13 Creatinine 0.98 0.91 Estimated GFR 78 L 84 L Random Glucose 95 96 Calcium 8.4 L 8.7 Magnesium 2.1 1.8 Imaging: ITS Impressions CT Consultation 10/28/17 00:00 CONCLUSION: 1. A few dots of air identified in the enlarged left psoas with no obvious drainable fluid collection. Findings may represent an inflammatory phlegmon which could develop into an abscess over the next few days. 2. In addition, the patient was on Plavix therapy. His last dose was administered yesterday. This will have to be held for at least 3 days prior to any intervention. 3. Discussed with Dr. Demarco from infectious disease at the time of this dictation. Abdomen/Pelvis CT 10/29/17 00:00 CONCLUSION: 1. Again a large hypodense area in the left psoas muscle with tiny locules of air, increased from the previous study presumably infection or infected hematoma. 2. Bilateral inguinal hernias right greater than left containing fat Lumbar Spine CT 11/02/17 00:00 CONCLUSION: 1. Left iliac artery aneurysm. 2. Degenerative changes and scoliosis. 3. Left psoas abscess identified extending 11 cm in cephalocaudal dimension. 4. Bilateral hydroureter. Physical Exam: GENERAL: awake and alert, NAD SKIN: Warm and dry. No generalized rash HEAD: Atraumatic. Normocephalic. No temporal wasting, or tenderness. EYES: [place] conjunctiva. No petechia or hemorrhage. No scleral icterus. No injection or drainage. EARS, NOSE AND THROAT: Nose without bleeding or purulent nasal discharge. No sinus tenderness. Mucous membranes pink and moist. No oral lesions noted. NECK: Trachea midline. Supple and not tender, no meningeal signs CARDIOVASCULAR: Regular rate and rhythm. No murmurs, rubs or gallops heard. Pacemaker in L upper chest with no evidence of infection RESPIRATORY: Clear to auscultation. Breath sounds equal bilaterally. No rales , wheezing or rhonchi ABDOMEN: Soft, globular, nondistended, with mild tenderness in LLQ. Bowel sounds present and normoactive. No guarding. No rebound. No organomegaly. EXTREMITIES: No clubbing, cyanosis, or edema. No joint effusion, has good ROM. No calf tenderness. Well perfused and warm. NEUROLOGICAL: Grossly non-focal. PSYCHIATRIC: Normal affect, calm and cooperative. LINE: No evidence of infection Assessment and Plan - Plan Impression Staph aureus sepsis, worrisome foe endovascular focus, IE, pacer L psoas fluid collection likely abscess, hematogenous spread S/P CABG 2016 S/P Pacemaker 2014 Recommendation Repeat BC to document clearing Continue IV Ancef Continue IV Gentamicin - follow creatinine Follow C/S and adjust Abx Monitor progress Check bladder scan For drainage of psoas fluid collection Explained plan to the patient
[2017-11-03] MEDS: SODIUM CHLOR 0.9% IV.SIG SCH (11:28)
[2017-11-03] MEDS: GENTAMICIN IV.SIG SCH (11:28)
--- NOTE | 2017-11-03 11:48 | P.PNIM ---
Subjective Interval history: Patient reports left flank pain. NPO for IR drainage of psoas abscess. Physical Exam Vital signs: Vital Signs 11/02/17 12:00 11/02/17 16:00 11/02/17 20:00 Temperature 98.3 F 98.0 F 99.3 F Pulse Rate 88 93 H 96 H Respiratory Rate 17 17 18 Blood Pressure 112/72 125/78 134/79 Pulse Oximetry 91 L 93 L 96 11/03/17 00:00 11/03/17 04:00 11/03/17 08:00 Temperature 98.6 F 98.7 F 97.9 F Pulse Rate 90 94 H 88 Respiratory Rate 18 18 18 Blood Pressure 113/81 153/97 H 156/97 H Pulse Oximetry 97 97 95 Intake & Output 11/02/17 11/03/17 11/03/17 18:59 06:59 18:59 Intake Total 3031.25 / 3031.25 1870 / 1870 600 / 600 Output Total 2059 / 2059 900 / 900 Balance 971.25 / 971.25 970 / 970 600 / 600 Intake: IV 2311.25 / 2311.25 1100 / 1100 600 / 600 NS Inj 1,000 ML @ 125 mls/hr IV 2000 / 2000 1000 / 1000 500 / 500 .CONT .Q8H ROXY Rx#:[id number] Gentamicin Inj 450 MG In NS Inj 111.25 / 111.25 100 ML @ 100 mls/hr IV.SIG Q24H ROXY Rx#:[id number] Ancef Inj 2,000 MG In NS Inj 80 200 / 200 100 / 100 100 / 100 ML @ 200 mls/hr IV.SIG Q8H ROXY Rx#:[id number] Oral 720 / 720 770 / 770 Output: Urine 2059 / 2059 900 / 900 Other: Date of Last Bowel Movement 11/03/17 # Bowel Movements 0 2 Narrative: GENERAL: No acute distress. SKIN: Warm and dry. HEAD: Normocephalic. EYES: No scleral icterus. No injection or drainage. NECK: Supple, trachea midline. No JVD or lymphadenopathy. CARDIOVASCULAR: Regular rate and rhythm without murmurs, gallops, or rubs. RESPIRATORY: Breath sounds equal bilaterally. No accessory muscle use. GASTROINTESTINAL: Abdomen soft, non-tender, nondistended. MUSCULOSKELETAL: + straight leg test on the left. Results - Labs CBC & Chem 7: 11/03/17 06:05 11/03/17 06:05 Laboratory Results - last 24 hr 11/03/17 11/03/17 06:05 06:05 WBC 12.2 H RBC 3.75 L Hgb 11.6 L Hct 34.4 L MCV 91.8 MCH 31.1 MCHC 33.8 RDW 13.7 Plt Count 344 MPV 7.3 Neut % (Auto) 76.8 H Lymph % (Auto) 10.9 [place] % (Auto) 10.4 H Eos % (Auto) 1.7 Baso % (Auto) 0.2 Neut # (Auto) 9.3 H Lymph # (Auto) 1.3 [place] # (Auto) 1.3 H Eos # (Auto) 0.2 Baso # (Auto) 0.0 WBC Differential . Differential Comment Auto diff final Sodium 135 L Potassium 3.2 L Chloride 99 Carbon Dioxide 28.6 Anion Gap 7 BUN 13 Creatinine 0.91 Estimated GFR 84 L Random Glucose 96 Calcium 8.7 Magnesium 1.8 Microbiology 10/31/17 06:15 Blood - Peripheral Aerobic Blood Culture - Final Staphylococcus aureus 10/31/17 06:15 Blood - Peripheral Anaerobic Blood Culture - Preliminary No growth in 3 days 11/02/17 06:48 Blood - Peripheral Aerobic Blood Culture - Preliminary No growth in 1 day 11/02/17 06:48 Blood - Peripheral Anaerobic Blood Culture - Preliminary No growth in 1 day 10/30/17 14:05 Blood - Peripheral Aerobic Blood Culture - Preliminary No growth in 4 days 10/30/17 14:05 Blood - Peripheral Anaerobic Blood Culture - Preliminary No growth in 4 days 10/29/17 08:33 Blood - Peripheral Aerobic Blood Culture - Final Staphylococcus aureus 10/29/17 08:33 Blood - Peripheral Anaerobic Blood Culture - Final No growth in 5 days 10/29/17 08:38 Blood - Peripheral Aerobic Blood Culture - Final Staphylococcus aureus 10/29/17 08:38 Blood - Peripheral Anaerobic Blood Culture - Final No growth in 5 days 10/28/17 21:12 Blood - Peripheral Aerobic Blood Culture - Final Staphylococcus aureus 10/28/17 21:12 Blood - Peripheral Anaerobic Blood Culture - Final No growth in 5 days - Imaging Impressions Lumbar Spine CT 11/02/17 00:00 CONCLUSION: 1. Left iliac artery aneurysm. 2. Degenerative changes and scoliosis. 3. Left psoas abscess identified extending 11 cm in cephalocaudal dimension. 4. Bilateral hydroureter. - Procedures 10/28/17- RACHEL Assessment and Plan - Assessment (1) Psoas abscess, left Code(s): K68.12 - Psoas muscle abscess Status: Acute (2) Intractable pain Code(s): R52 - Pain, unspecified Status: Acute (3) Hypokalemia Code(s): E87.6 - Hypokalemia Status: Acute (4) Bacteremia due to Staphylococcus aureus Code(s): R78.81 - Bacteremia Status: Acute - Plan 62-year-old male with a past medical history of coronary artery disease, status post CABG 5, status post pacemaker placement, and dyslipidemia. The patient presented to the emergency department 3 days of left-sided flank pain. He initially thought he had pulled a muscle while doing yard work. The patient's symptoms were getting worse and he came into our emergency department for evaluation. 1. MSSA bacteremia with left psoas abscess. CT scan of the abdomen and pelvis shows a left psoas muscle with findings consistent with a psoas abscess. Blood cultures are positive for staph aureus. Repeat blood cultures are still positive. A repeat CT scan of the abdomen and pelvis shows growing size of the abscess. The surgical team is recommending interventional radiology to drain the abscess. A RACHEL was also done which did not show any valvular vegetations or vegetations on the pacemaker lead. He will be continued on IV Ancef and gentamicin as per infectious disease recommendations. - IR for drainage of abscess today. - Continue IV Antibiotics. 2. Coronary artery disease status post CABG/dyslipidemia Continue current medications. Plavix has been held as the patient will require drainage of the abscess. As per the patient he was noncompliant with his aspirin and Plavix and the rest of his medications at home over the past year. No DVT pharmacotherapy prophylaxis as the patient will l go to the OR for drainage of the abscess today
--- NOTE | 2017-11-03 12:08 | P.PNGS ---
Subjective Interval history: Resting in bed eager to have CT scan Physical Exam Vital signs: Vital Signs 11/02/17 16:00 11/02/17 20:00 11/03/17 00:00 Temperature 98.0 F 99.3 F 98.6 F Pulse Rate 93 H 96 H 90 Respiratory Rate 17 18 18 Blood Pressure 125/78 134/79 113/81 Pulse Oximetry 93 L 96 97 11/03/17 04:00 11/03/17 08:00 Temperature 98.7 F 97.9 F Pulse Rate 94 H 88 Respiratory Rate 18 18 Blood Pressure 153/97 H 156/97 H Pulse Oximetry 97 95 Intake & Output 11/02/17 11/03/17 11/03/17 18:59 06:59 18:59 Intake Total 3031.25 / 3031.25 1870 / 1870 600 / 600 Output Total 2059 / 2059 900 / 900 Balance 971.25 / 971.25 970 / 970 600 / 600 Intake: IV 2311.25 / 2311.25 1100 / 1100 600 / 600 NS Inj 1,000 ML @ 125 mls/hr IV 2000 / 2000 1000 / 1000 500 / 500 .CONT .Q8H ROXY Rx#:[id number] Gentamicin Inj 450 MG In NS Inj 111.25 / 111.25 100 ML @ 100 mls/hr IV.SIG Q24H ROXY Rx#:[id number] Ancef Inj 2,000 MG In NS Inj 80 200 / 200 100 / 100 100 / 100 ML @ 200 mls/hr IV.SIG Q8H ROXY Rx#:[id number] Oral 720 / 720 770 / 770 Output: Urine 2059 / 2059 900 / 900 Other: Date of Last Bowel Movement 11/03/17 # Bowel Movements 0 2 Narrative: Alert and awake LEFT flank pain Results - Labs 11/10/17 05:18 11/11/17 07:52 Laboratory Results - last 24 hr 11/03/17 11/03/17 06:05 06:05 WBC 12.2 H RBC 3.75 L Hgb 11.6 L Hct 34.4 L MCV 91.8 MCH 31.1 MCHC 33.8 RDW 13.7 Plt Count 344 MPV 7.3 Neut % (Auto) 76.8 H Lymph % (Auto) 10.9 [place] % (Auto) 10.4 H Eos % (Auto) 1.7 Baso % (Auto) 0.2 Neut # (Auto) 9.3 H Lymph # (Auto) 1.3 [place] # (Auto) 1.3 H Eos # (Auto) 0.2 Baso # (Auto) 0.0 WBC Differential . Differential Comment Auto diff final Sodium 135 L Potassium 3.2 L Chloride 99 Carbon Dioxide 28.6 Anion Gap 7 BUN 13 Creatinine 0.91 Estimated GFR 84 L Random Glucose 96 Calcium 8.7 Magnesium 1.8 - Imaging Imaging: ITS Impressions CT Consultation 10/28/17 00:00 CONCLUSION: 1. A few dots of air identified in the enlarged left psoas with no obvious drainable fluid collection. Findings may represent an inflammatory phlegmon which could develop into an abscess over the next few days. 2. In addition, the patient was on Plavix therapy. His last dose was administered yesterday. This will have to be held for at least 3 days prior to any intervention. 3. Discussed with Dr. Demarco from infectious disease at the time of this dictation. Abdomen/Pelvis CT 10/29/17 00:00 CONCLUSION: 1. Again a large hypodense area in the left psoas muscle with tiny locules of air, increased from the previous study presumably infection or infected hematoma. 2. Bilateral inguinal hernias right greater than left containing fat Lumbar Spine CT 11/02/17 00:00 CONCLUSION: 1. Left iliac artery aneurysm. 2. Degenerative changes and scoliosis. 3. Left psoas abscess identified extending 11 cm in cephalocaudal dimension. 4. Bilateral hydroureter. Assessment and Plan - Assessment (1) Psoas abscess, left Code(s): K68.12 - Psoas muscle abscess Status: Acute Plan: 62 year old male with LEFT psoas muscle abscess -ID following---s/p RACHEL -Afebrile overnight -WBC 12K today -Awaiting IR eval for possible drainage ---going for repeat images today -Diet as tolerated As above; awaiting imaging The exam, history, and the medical decision-making described in the above note were completed with the assistance of the mid-level provider. I reviewed and agree with the findings presented. I attest that I had a [id number] encounter with the patient on the same day, and personally performed and documented my assessment and findings in the medical record. (2) Acute flank pain Code(s): R10.9 - Unspecified abdominal pain Status: Acute
--- NOTE | 2017-11-03 13:30 | P.PNCA ---
Subjective Interval history: Patient denies any chest pain, pressure, palpitations, dizziness, edema or shortness of breath. Patient still complains of left lateral lower abdominal pain. Patient states that he is ready to have procedure done so he can feel better. Medications and Allergies Allergies Allergy/AdvReac Type Severity Reaction Status Date / Time No Known Allergies Allergy Unverified 10/25/17 22:42 Home Medications Medication Instructions Recorded Confirmed Type amiodarone 200 mg PO DAILY 10/26/17 10/26/17 History atorvastatin 40 mg PO DAILY 10/26/17 10/26/17 History clopidogrel 75 mg PO DAILY 10/26/17 10/26/17 History furosemide 40 mg PO DAILY 10/26/17 10/26/17 History levothyroxine 25 mcg PO DAILY 10/26/17 10/26/17 History meloxicam 7.5 mg PO BID 10/26/17 10/26/17 History metoprolol succinate 25 mg PO DAILY 10/26/17 10/26/17 History Active Medications: Active Medications Acetaminophen (Tylenol) 650 mg PO Q4H PRN PRN Reason: Temp > 100.4/LAURA Hydrocodone Bitart/Acetaminophen ([place] 5/325) 1 tab PO Q6H PRN PRN Reason: pain scale 3-6 Hydrocodone Bitart/Acetaminophen ([place] 7.5/325) 1 tab PO Q6H PRN PRN Reason: pain scale 7-10 Last Admin: 11/03/17 11:27 Dose: 1 tab Al Hydroxide/Mg Hydroxide (Milk Of Loni [place]) 30 ml PO Q12H PRN PRN Reason: Mild Constipation Amiodarone HCl (Cordarone) 200 mg PO DAILY [facility] Last Admin: 11/03/17 08:43 Dose: 200 mg Atorvastatin Calcium (Lipitor) 40 mg PO DAILY [facility] Last Admin: 11/03/17 08:42 Dose: 40 mg Bisacodyl (Dulcolax Supp) 10 mg RECTAL DAILY PRN PRN Reason: SEVERE CONSITIPATION Cyclobenzaprine HCl (Flexeril) 10 mg PO Q8H PRN PRN Reason: muscle spasms Last Admin: 11/03/17 11:28 Dose: 10 mg Furosemide (Lasix) 40 mg PO DAILY [facility] Last Admin: 11/03/17 08:42 Dose: 40 mg Sodium Chloride (Ns Inj) 1,000 mls @ 0 mls/hr IV.SIG BOLUS [facility] Last Infusion: 11/01/17 22:34 Dose: Infused Sodium Chloride (Ns Inj) 1,000 mls @ 100 mls/hr IV.CONT .Q10H [facility] Last Admin: 11/03/17 11:04 Dose: Not Given Cefazolin Sodium 2,000 mg/ (Sodium Chloride) 100 mls @ 200 mls/hr IV.SIG Q8H [facility] Last Infusion: 11/03/17 08:02 Dose: Infused Pharmacy Profile Note (Gentamicin Consult Pharmacy) 0 mls @ 0 mls/hr [facility] Gentamicin Sulfate 450 mg/ (Sodium Chloride) 111.25 mls @ 100 mls/hr IV.SIG Q24H [facility] Last Infusion: 11/03/17 12:36 Dose: Infused Sodium Chloride (Ns Inj) 1,000 mls @ 125 mls/hr IV.CONT .Q8H [facility] Last Infusion: 11/03/17 12:37 Dose: 125 mls/hr Lactulose (Lactulose Liq) 30 ml PO DAILY PRN PRN Reason: SEVERE CONSITIPATION Levothyroxine Sodium (Synthroid) 25 mcg PO DAILY@0600 [facility] Last Admin: 11/03/17 06:08 Dose: 25 mcg Lisinopril (Prinivil) 20 mg PO DAILY [facility] Last Admin: 11/03/17 08:42 Dose: 20 mg Metoprolol Succinate (Toprol Xl) 25 mg PO DAILY [facility] Last Admin: 11/03/17 08:42 Dose: 25 mg Morphine Sulfate (Morphine Inj) 2 mg IV.PUSH Q3H PRN PRN Reason: BREAKTHROUGH PAIN Last Admin: 11/01/17 01:45 Dose: 2 mg Ondansetron HCl (Zofran Inj) 4 mg IV.PUSH Q6H PRN PRN Reason: NAUSEA OR VOMITING Senna/Docusate Sodium (Ana Paula-Colace) 1 tab PO BID [facility] Last Admin: 11/03/17 08:43 Dose: 1 tab Sennosides (Senokot) 17.2 mg PO Q12H PRN PRN Reason: Moderate Constipation Sodium Chloride (Ns Flush) 2 ml IV.FLUSH BID [facility] Last Admin: 11/03/17 11:04 Dose: Not Given Sodium Chloride (Ns Flush) 2 ml IV.FLUSH PRN PRN PRN Reason: FLUSH AFTER USING IV ACCESS Physical Exam Vital signs: Vital Signs 11/02/17 16:00 11/02/17 20:00 11/03/17 00:00 Temperature 98.0 F 99.3 F 98.6 F Pulse Rate 93 H 96 H 90 Respiratory Rate 18 18 Blood Pressure 125/78 134/79 113/81 Pulse Oximetry 93 L 96 97 11/03/17 04:00 11/03/17 08:00 11/03/17 12:00 Temperature 98.7 F 97.9 F 98.3 F Pulse Rate 94 H 88 88 Respiratory Rate 18 18 18 Blood Pressure 153/97 H 156/97 H 148/93 H Pulse Oximetry 97 95 93 L Intake & Output 11/02/17 11/03/17 11/03/17 18:59 06:59 18:59 Intake Total 3031.25 / 3031.25 1870 / 1870 711.25 / 711.25 Output Total 2059 / 2059 900 / 900 Balance 971.25 / 971.25 970 / 970 711.25 / 711.25 Intake: IV 2311.25 / 2311.25 1100 / 1100 711.25 / 711.25 NS Inj 1,000 ML @ 125 mls/hr IV 2000 / 2000 1000 / 1000 500 / 500 .CONT .Q8H [facility] Rx#:[id number] Gentamicin Inj 450 MG In NS Inj 111.25 / 111.25 111.25 / 111.25 100 ML @ 100 mls/hr IV.SIG Q24H [facility] Rx#:[id number] Ancef Inj 2,000 MG In NS Inj 80 200 / 200 100 / 100 100 / 100 ML @ 200 mls/hr IV.SIG Q8H [facility] Rx#:[id number] Oral 720 / 720 770 / 770 Output: Urine 2059 / 2059 900 / 900 Other: Date of Last Bowel Movement 11/03/17 # Bowel Movements 0 2 - Constitutional no acute distress - Routine HEENT Exam Head: Present: normocephalic Eye: Present: PERRL ENT: Present: mucous membranes moist - Routine Neck Exam Present: full ROM - Routine Respiratory Exam Present: CTA bilaterally - Routine Cardiovascular Exam Present: S1, S2. Absent: murmur, gallop, rubs - Routine Abdominal Exam Present: normoactive bowel sounds - Routine Extremities Exam Present: full ROM, pulses intact, normal capillary refill. Absent: cyanosis, clubbing, edema - Routine Skin Exam Present: intact - Routine Neurological Exam Present: oriented X3 - Detailed Neurological Exam: Coma Scale Eye Opening: Spontaneous Verbal Response: Oriented Motor Response: Obey commands [place] Coma Scale Total: 15 - Routine Psychiatric Exam Present: normal affect Results 11/03/17 06:05 11/03/17 06:05 CBC 11/03/17 Range/Units 06:05 WBC 12.2 H (4.0-11.0) th/mm3 RBC 3.75 L (4.50-5.90) mil/mm3 Hgb 11.6 L (13.0-17.0) gm/dL Hct 34.4 L (39.0-51.0) % Plt Count 344 (150-450) th/mm3 Neut # (Auto) 9.3 H (1.8-7.7) th/mm3 Lymph # (Auto) 1.3 (1.0-4.8) th/mm3 [place] # (Auto) 1.3 H (0.0-0.9) th/mm3 Eos # (Auto) 0.2 (0.0-0.4) th/mm3 Baso # (Auto) 0.0 (0.0-0.2) th/mm3 Comprehensive Metabolic Panel 11/02/17 11/03/17 Range/Units 06:48 06:05 Sodium 136 135 L (136-145) meq/L Potassium 3.2 L 3.2 L (3.5-5.1) meq/L Chloride 99 99 (98-107) meq/L Carbon Dioxide 29.5 28.6 (21.0-32.0) meq/L BUN 15 13 (7-18) mg/dL Creatinine 0.98 0.91 (0.60-1.30) mg/dL Calcium 8.4 L 8.7 (8.5-10.1) mg/dL Intake and Output 11/02/17 11/03/17 11/03/17 22:59 06:59 14:59 Intake Total 1820 / 1820 1870 / 1870 711.25 / 711.25 Output Total 2059 900 / 900 Balance -240 / -240 970 / 970 711.25 / 711.25 Intake: IV 1100 / 1100 1100 / 1100 711.25 / 711.25 NS Inj 1,000 ML @ 125 mls/hr IV 1000 / 1000 1000 / 1000 500 / 500 .CONT .Q8H [facility] Rx#:[id number] Gentamicin Inj 450 MG In NS Inj 111.25 / 111.25 100 ML @ 100 mls/hr IV.SIG Q24H [facility] Rx#:[id number] Ancef Inj 2,000 MG In NS Inj 80 100 / 100 100 / 100 100 / 100 ML @ 200 mls/hr IV.SIG Q8H [facility] Rx#:[id number] Oral 720 / 720 770 / 770 Output: Urine 2060 / 2060 900 / 900 Other: Date of Last Bowel Movement 11/03/17 # Bowel Movements 0 2 - Imaging and Cardiology Imaging: Impressions Lumbar Spine CT 11/02/17 00:00 CONCLUSION: 1. Left iliac artery aneurysm. 2. Degenerative changes and scoliosis. 3. Left psoas abscess identified extending 11 cm in cephalocaudal dimension. 4. Bilateral hydroureter. Assessment and Plan - Assessment (1) Bacteremia due to Staphylococcus aureus Code(s): R78.81 - Bacteremia Status: Acute (2) Bacteremia Code(s): R78.81 - Bacteremia Status: Acute (3) Psoas abscess, left Code(s): K68.12 - Psoas muscle abscess Status: Acute (4) Calculus, renal Code(s): N20.0 - Calculus of kidney Status: Acute (5) Acute flank pain Code(s): R10.9 - Unspecified abdominal pain Status: Acute (6) Intractable pain Code(s): R52 - Pain, unspecified Status: Acute (7) Hypokalemia Code(s): E87.6 - Hypokalemia Status: Acute - Plan RACHEL done on 10-28-17 and showed no evidence of valvular vegetation, no evidence of pacemaker lead vegetation, preserved left ventricular systolic function, trace mitral valve regurgitation and mild tricuspid valve regurgitation. CT of the abdomen shows a large hypodense area in the left psoas muscle with tiny locules of air, presumably infection or infected hematoma. Repeat CAT scan is being done today. Continue with current antibiotic treatment per infectious disease. Possible drainage of the left psoas muscle abscess today. Increase activity as patient tolerates. The patient was seen and evaluated by Dr. Quadrat who participated in care, management and decision making. - Attending Attestation Patient seen and examined. I reviewed and agree with the evaluation and plan as presented. Continue current program as per ID. Psoas abscess drainage planned. Increase activity.
[2017-11-03] MEDS ORDERED: Lidocaine 1%/Epinephrine 1:100,000 Inj 20 ML Vial ONE (14:30)
[2017-11-03] MEDS ORDERED: fentaNYL Citrate Inj 250 MCG/5 ML Ampul ONE (14:30)
--- NOTE | 2017-11-03 16:04 | P.RAD ---
Post Procedure Progress Note - Pre Procedure Diagnosis (1) Psoas abscess, left - Post Procedure Diagnosis (1) Psoas abscess, left - Procedure Information Procedure Date: 11/03/17 Supervising Radiologist: Phani Guidry MD Estimated blood loss (mL): 0 Anesthesia: Local, Conscious Sedation - Plan of Activity Patient to Unit: [facility] Patient Condition: Fair Additional Comments: Left Psoas abcess drained without difficulty. 8F. drain placed. 30cc of purulent material removed. Full report to follow See PACS Report for procedural detail/treatment.
--- NOTE | 2017-11-03 16:58 | CT ---
EXAM DATE: 11/03/2017 4:19 PM EDT AGE/SEX: 62 years / Male INDICATIONS: Abscess. CLINICAL DATA: This is the patient's initial encounter. Patient reports that signs and symptoms have been present for 1 week and indicates a pain score of 7/10. MEDICAL/SURGICAL HISTORY: Cardiovascular disease. CABG. Pacemaker. COMPARISON: No prior exams available for comparison. SEDATION TIME (min): 30 BIOPSY SITE: left psoas MEDICATION(S): 3.5mg midazolam (Versed) IV 150mcg fentanyl (Sublimaze) IV DEVICE(S): 8 Fr Skater FLUID: Total volume of 30 of cloudy, red fluid was removed. Fluid was sent to lab for ordered studies.. PROCEDURE : CT guided drainage of the left psoas. Conscious sedation with continuous EKG and oximetry monitoring. EKG and oximetry remained stable throughout the procedure. The risks, benefits and alternatives to the procedure were explained and verbal and written consent w as obtained. Using automated exposure control and adjustment of the mA and/or kV according to patient size, radiation dose was kept as low as reasonably achievable to obtain optimal diagnostic quality i mages. The site was prepped in sterile fashion. Full sterile technique was used, including cap, ma sk, sterile gloves and gown and a large sterile sheet. Hand hygiene and 2% chlorhexidine and/or beta dine/alcohol prep was utilized per protocol for cutaneous antisepsis. The skin and subcutaneous tiss ues were infiltrated with local anesthetic solution. DICOM format image data is available electronic ally for review and comparison. The patient's abscess in the left psoas muscle was identified. The skin above the was not sides with 10 cc 1% lidocaine. An 18-gauge blunt needle was advanced through the skin and into the abscess colle ction without difficulty. A 0.035 wire was advanced through the needle. A 10 [place] locking drain was advanced over the wire and positioned within the psoas without difficulty. There is immediate return of approximately 30 cc of purulent material. Samples were sent for culture and sensitivity. The patient tolerated the procedure well and there were no complications. The patient tolerated the procedure well and there were no complications. The patient was sent to post anesthesia recovery in s table condition. CONCLUSION: 1. Uncomplicated CT guided drainage. Electronically signed by: Phani Guidry MD 11/03/2017 4:57 PM EDT
--- NOTE | 2017-11-03 17:49 | XR ---
EXAM DATE: 11/03/2017 5:44 PM EDT AGE/SEX: 62 years / Male INDICATIONS: Post left lung biopsy. CLINICAL DATA: This is the patient's initial encounter. Patient reports that signs and symptoms have been present for 1 day and indicates a pain score of 2/10. MEDICAL/SURGICAL HISTORY: Cardiovascular disease. CABG. Pacemaker. [place] [facility] [place]. . FINDINGS: A single frontal expiratory view of the chest was performed. The lungs are symmetrically aerated and clear. No evidence of pneumothorax. Mediastinal structures are in the midline. Left subclavian bip olar pacer. Median sternotomy wires CONCLUSION: There is a tortuous aorta. Lungs are clear. I don't see any evidence of a pneumothorax on the left si de. Electronically signed by: Prudencio Carter MD 11/03/2017 5:47 PM EDT
[2017-11-04] MEDS: ceFAZolin Inj 2,000 MG in Sodium Chlor 0.9% Inj 80 ML IV.SIG SCH ×3 (00:39→15:27)
[2017-11-04] MEDS: Sod Chloride 0.9% Inj 1,000 ML IV.CONT SCH ×8 (00:40→23:49)
[2017-11-04 08:00] LABS: Hematocrit 33.1 % (39.0-51.0); Hemoglobin 11.6 gm/dL (13.0-17.0); Mean Corpuscular Hemoglobin 31.8 pg (27.0-34.0); Mean Platelet Volume 7.1 fL (7.0-11.0); Platelet Count 370 th/mm3 (150-450); Red Blood Count 3.63 mil/mm3 (4.50-5.90); Red Cell Distribution Width 13.9 % (11.6-17.2)
[2017-11-04 08:31] LABS: Calcium 8.4 mg/dL (8.5-10.1); Carbon Dioxide 29.2 meq/L (21.0-32.0); Potassium 3.6 meq/L (3.5-5.1)
[2017-11-04] MEDS: Amiodarone 200 MG Tablet PO SCH (09:07)
[2017-11-04] MEDS: Furosemide 40 MG Tablet PO SCH (09:07)
[2017-11-04] MEDS: Senna/Docusate Sodium 8.6/50 MG Tablet PO SCH ×2 (09:07→21:02)
[2017-11-04] MEDS: Lisinopril 20 MG Tablet PO SCH (09:08)
--- NOTE | 2017-11-04 11:28 | P.PNCA ---
Subjective Interval history: Patient currently denies any chest pain, pressure, palpitations, dizziness, edema or shortness of breath. Patient states that his left side is feeling much better and is able to move around without severe pain. Medications and Allergies Allergies Allergy/AdvReac Type Severity Reaction Status Date / Time No Known Allergies Allergy Unverified 10/25/17 22:42 Home Medications Medication Instructions Recorded Confirmed Type amiodarone 200 mg PO DAILY 10/26/17 10/26/17 History atorvastatin 40 mg PO DAILY 10/26/17 10/26/17 History clopidogrel 75 mg PO DAILY 10/26/17 10/26/17 History furosemide 40 mg PO DAILY 10/26/17 10/26/17 History levothyroxine 25 mcg PO DAILY 10/26/17 10/26/17 History meloxicam 7.5 mg PO BID 10/26/17 10/26/17 History metoprolol succinate 25 mg PO DAILY 10/26/17 10/26/17 History Active Medications: Active Medications Acetaminophen (Tylenol) 650 mg PO Q4H PRN PRN Reason: Temp > 100.4/LAURA Hydrocodone Bitart/Acetaminophen ([place] 5/325) 1 tab PO Q6H PRN PRN Reason: pain scale 3-6 Last Admin: 11/03/17 18:46 Dose: 1 tab Hydrocodone Bitart/Acetaminophen ([place] 7.5/325) 1 tab PO Q6H PRN PRN Reason: pain scale 7-10 Last Admin: 11/04/17 06:22 Dose: 1 tab Al Hydroxide/Mg Hydroxide (Milk Of [place] Liq) 30 ml PO Q12H PRN PRN Reason: Mild Constipation Amiodarone HCl (Cordarone) 200 mg PO DAILY [facility] Last Admin: 11/04/17 09:07 Dose: 200 mg Atorvastatin Calcium (Lipitor) 40 mg PO DAILY [facility] Last Admin: 11/04/17 09:07 Dose: 40 mg Bisacodyl (Dulcolax Supp) 10 mg RECTAL DAILY PRN PRN Reason: SEVERE CONSITIPATION Cyclobenzaprine HCl (Flexeril) 10 mg PO Q8H PRN PRN Reason: muscle spasms Last Admin: 11/04/17 05:56 Dose: 10 mg Furosemide (Lasix) 40 mg PO DAILY [facility] Last Admin: 11/04/17 09:07 Dose: 40 mg Sodium Chloride (Ns Inj) 1,000 mls @ 0 mls/hr IV.SIG BOLUS [facility] Last Infusion: 11/01/17 22:34 Dose: Infused Sodium Chloride (Ns Inj) 1,000 mls @ 100 mls/hr IV.CONT .Q10H [facility] Last Admin: 11/04/17 09:08 Dose: Not Given Cefazolin Sodium 2,000 mg/ (Sodium Chloride) 100 mls @ 200 mls/hr IV.SIG Q8H [facility] Last Infusion: 11/04/17 09:34 Dose: Infused Pharmacy Profile Note (Gentamicin Consult Pharmacy) 0 mls @ 0 mls/hr OTHER [facility] Gentamicin Sulfate 450 mg/ (Sodium Chloride) 111.25 mls @ 100 mls/hr IV.SIG Q24H [facility] Last Infusion: 11/03/17 12:36 Dose: Infused Sodium Chloride (Ns Inj) 1,000 mls @ 125 mls/hr IV.CONT .Q8H [facility] Last Infusion: 11/04/17 09:34 Dose: Infused Lactulose (Lactulose Liq) 30 ml PO DAILY PRN PRN Reason: SEVERE CONSITIPATION Levothyroxine Sodium (Synthroid) 25 mcg PO DAILY@0600 [facility] Last Admin: 11/04/17 05:56 Dose: 25 mcg Lisinopril (Prinivil) 20 mg PO DAILY [facility] Last Admin: 11/04/17 09:08 Dose: 20 mg Metoprolol Succinate (Toprol Xl) 25 mg PO DAILY [facility] Last Admin: 11/04/17 09:07 Dose: 25 mg Morphine Sulfate (Morphine Inj) 2 mg IV.PUSH Q3H PRN PRN Reason: BREAKTHROUGH PAIN Last Admin: 11/01/17 01:45 Dose: 2 mg Ondansetron HCl (Zofran Inj) 4 mg IV.PUSH Q6H PRN PRN Reason: NAUSEA OR VOMITING Senna/Docusate Sodium (Ana Paula-Colace) 1 tab PO BID [facility] Last Admin: 11/04/17 09:07 Dose: 1 tab Sennosides (Senokot) 17.2 mg PO Q12H PRN PRN Reason: Moderate Constipation Sodium Chloride (Ns Flush) 2 ml IV.FLUSH BID [facility] Last Admin: 11/04/17 09:09 Dose: 2 ml Sodium Chloride (Ns Flush) 2 ml IV.FLUSH PRN PRN PRN Reason: FLUSH AFTER USING IV ACCESS Sodium Chloride (Ns Inj) 5 ml IRRIGATION DAILY [facility] Last Admin: 11/04/17 09:09 Dose: 5 ml Physical Exam Vital signs: Vital Signs 11/03/17 12:00 11/03/17 16:20 11/03/17 16:35 Temperature 98.3 F Pulse Rate 88 89 84 Respiratory Rate 18 20 16 Blood Pressure 148/93 H 136/83 147/92 H Pulse Oximetry 93 L 95 93 L 11/03/17 16:47 11/03/17 18:00 11/03/17 20:00 Temperature 98.2 F 98.2 F Pulse Rate 86 90 99 H Respiratory Rate 20 16 20 Blood Pressure 144/94 H 157/91 H 103/66 Pulse Oximetry 94 L 95 95 11/04/17 01:15 11/04/17 08:00 Temperature 99.4 F 97.8 F Pulse Rate 81 93 H Respiratory Rate 20 20 Blood Pressure 132/84 122/85 Pulse Oximetry 97 95 Intake & Output 11/03/17 11/04/17 11/04/17 18:59 06:59 18:59 Intake Total 811.25 / 811.25 1295 / 1295 2100 / 2100 Output Total 850 / 850 Balance 811.25 / 811.25 445 / 445 2100 / 2100 Weight 90.9 kg Intake: IV 811.25 / 811.25 1055 / 1055 2100 / 2100 NS Inj 1,000 ML @ 125 mls/hr IV 500 / 500 955 / 955 2000 / 2000 .CONT .Q8H [facility] Rx#:[id number] Gentamicin Inj 450 MG In NS Inj 111.25 / 111.25 100 ML @ 100 mls/hr IV.SIG Q24H [facility] Rx#:[id number] Ancef Inj 2,000 MG In NS Inj 80 200 / 200 100 / 100 100 / 100 ML @ 200 mls/hr IV.SIG Q8H [facility] Rx#:[id number] Oral 240 / 240 Output: Urine 850 / 850 Other: Date of Last Bowel Movement 11/03/17 - Constitutional no acute distress - Routine HEENT Exam Head: Present: normocephalic Eye: Present: PERRL ENT: Present: mucous membranes moist - Routine Neck Exam Present: full ROM - Routine Respiratory Exam Present: CTA bilaterally - Routine Cardiovascular Exam Present: S1, S2. Absent: murmur, gallop - Routine Abdominal Exam Present: normoactive bowel sounds Comments: drain to the left lateral side. - Routine Extremities Exam Present: full ROM, pulses intact, normal capillary refill. Absent: cyanosis, clubbing, edema - Routine Skin Exam Present: intact. Absent: cyanosis, erythema - Routine Neurological Exam Present: oriented X3 - Detailed Neurological Exam: Coma Scale Eye Opening: Spontaneous Verbal Response: Oriented Motor Response: Obey commands [place] Coma Scale Total: 15 - Routine Psychiatric Exam Present: normal affect Results 11/04/17 07:38 11/04/17 07:38 CBC 11/03/17 11/04/17 Range/Units 06:05 07:38 WBC 12.2 H 10.0 (4.0-11.0) th/mm3 RBC 3.75 L 3.63 L (4.50-5.90) mil/mm3 Hgb 11.6 L 11.6 L (13.0-17.0) gm/dL Hct 34.4 L 33.1 L (39.0-51.0) % Plt Count 344 370 (150-450) th/mm3 Neut # (Auto) 9.3 H (1.8-7.7) th/mm3 Lymph # (Auto) 1.3 (1.0-4.8) th/mm3 [place] # (Auto) 1.3 H (0.0-0.9) th/mm3 Eos # (Auto) 0.2 (0.0-0.4) th/mm3 Baso # (Auto) 0.0 (0.0-0.2) th/mm3 Comprehensive Metabolic Panel 11/03/17 11/04/17 Range/Units 06:05 07:38 Sodium 135 L 134 L (136-145) meq/L Potassium 3.2 L 3.6 (3.5-5.1) meq/L Chloride 99 99 (98-107) meq/L Carbon Dioxide 28.6 29.2 (21.0-32.0) meq/L BUN 13 13 (7-18) mg/dL Creatinine 0.91 0.93 (0.60-1.30) mg/dL Calcium 8.7 8.4 L (8.5-10.1) mg/dL Intake and Output 11/03/17 11/04/17 11/04/17 22:59 06:59 14:59 Intake Total 100 / 100 1295 / 1295 2099 / 2100 Output Total 850 / 850 Balance 100 / 100 445 / 445 2099 / 2100 Intake: IV 100 / 100 1055 / 1055 2099 / 2100 NS Inj 1,000 ML @ 125 mls/hr IV 955 / 955 1999 / 1999 .CONT .Q8H [facility] Rx#:[id number] Ancef Inj 2,000 MG In NS Inj 80 100 / 100 100 / 100 100 / 100 ML @ 200 mls/hr IV.SIG Q8H [facility] Rx#:[id number] Oral 240 / 240 Output: Urine 850 / 850 Other: Date of Last Bowel Movement 11/03/17 Weight 90.9 kg - Imaging and Cardiology Imaging: Impressions Lumbar Spine CT 11/02/17 00:00 CONCLUSION: 1. Left iliac artery aneurysm. 2. Degenerative changes and scoliosis. 3. Left psoas abscess identified extending 11 cm in cephalocaudal dimension. 4. Bilateral hydroureter. Abscess Drainage CT 11/03/17 00:00 CONCLUSION: 1. Uncomplicated CT guided drainage. Chest X-Ray 11/03/17 17:14 CONCLUSION: There is a tortuous aorta. Lungs are clear. I don't see any evidence of a pneumothorax on the left side. Assessment and Plan - Assessment (1) Bacteremia due to Staphylococcus aureus Code(s): R78.81 - Bacteremia Status: Acute (2) Bacteremia Code(s): R78.81 - Bacteremia Status: Acute (3) Psoas abscess, left Code(s): K68.12 - Psoas muscle abscess Status: Acute (4) Calculus, renal Code(s): N20.0 - Calculus of kidney Status: Acute (5) Acute flank pain Code(s): R10.9 - Unspecified abdominal pain Status: Acute (6) Intractable pain Code(s): R52 - Pain, unspecified Status: Acute (7) Hypokalemia Code(s): E87.6 - Hypokalemia Status: Acute - Plan RACHEL done on 10-28-17 and showed no evidence of valvular vegetation, no evidence of pacemaker lead vegetation, preserved left ventricular systolic function, trace mitral valve regurgitation and mild tricuspid valve regurgitation. Continue with current antibiotic treatment per infectious disease. Drain was placed in the left psoas muscle abscess. Increase activity as patient tolerates. The patient was seen and evaluated by Dr. Araujo who participated in care, management and decision making. - Attending Attestation Patient seen and examined. I reviewed and agree with the evaluation and plan as presented. Overall improvement. Psoas abscess drained. Continue current program. No new cardiac issues.
[2017-11-04] MEDS: SODIUM CHLOR 0.9% IV.SIG SCH (11:53)
[2017-11-04] MEDS: GENTAMICIN IV.SIG SCH (11:53)
--- NOTE | 2017-11-04 13:21 | P.PNID ---
Subjective Remarks: Patient is a 62-year-old male, presented to the hospital complaining of 4-5 day history of left-sided flank pain. He was apparently working in the yard, pulling weeds and he was doing this for 2 days. About 4 days prior to admission he started experiencing left-sided flank, side pain and the pain was quite severe that he was not able to do much. He denies any fever chills or sweats. He has not had any nausea or vomiting. He has not had any problem with his bowels. He has been voiding without any problem. Patient has not had any treatment for any infection in the last several months. On presentation he has had some low-grade temps. His WBC is normal. CT of the abdomen and pelvis showing asymmetry in his psoas muscle with the left being big and there are some foci of gas. There is no other abnormality seen. Blood cultures done on admission are now reported as growing gram-positive cocci in clusters. His urinalysis is unremarkable. Patient has known coronary artery disease and had undergone CABG in 2016. He stated that his pacemaker was placed about a year before his CABG. This was done in [place]. Patient has not had any follow-up with any application manager. Infectious disease consultation has been requested to evaluate the patient with positive blood culture. Patient still complaining of significant pain in the left flank. Notes reviewed Afebrile Pain is better after procedure done Has drain to the L psoas - output is bloody C/S of fluid pending last (+) BC 10/[address] noted All BC (+) MSSA - last +BC 10/31 WBC a little lower Denies urinary complaints Bladder scan <10 ml Antibiotics: Ancef Gentamicin Lines: PIV Past Medical History: Coronary artery disease High cholesterol Pacemaker Hx of CABG Allergies/Adverse Reactions: Allergies No Known Allergies Allergy (Unverified 10/25/17 22:42) Objective Vital Signs 11/03/17 16:20 11/03/17 16:35 11/03/17 16:47 Temperature Pulse Rate 89 84 86 Respiratory Rate 20 16 20 Blood Pressure 136/83 147/92 H 144/94 H Pulse Oximetry 95 93 L 94 L 11/03/17 18:00 11/03/17 20:00 11/04/17 01:15 Temperature 98.2 F 98.2 F 99.4 F Pulse Rate 90 99 H 81 Respiratory Rate 16 20 20 Blood Pressure 157/91 H 103/66 132/84 Pulse Oximetry 95 95 97 11/04/17 08:00 11/04/17 12:00 Temperature 97.8 F 98.1 F Pulse Rate 93 H 93 H Respiratory Rate 20 20 Blood Pressure 122/85 110/74 Pulse Oximetry 95 95 Intake & Output 11/03/17 11/04/17 11/04/17 18:59 06:59 18:59 Intake Total 811.25 / 811.25 1295 / 1295 2211.25 / 2211.25 Output Total 850 / 850 Balance 811.25 / 811.25 445 / 445 2211.25 / 2211.25 Weight 90.9 kg Intake: IV 811.25 / 811.25 1055 / 1055 2211.25 / 2211.25 NS Inj 1,000 ML @ 125 mls/hr IV 500 / 500 955 / 955 2000 / 1999 .CONT .Q8H ROXY Rx#:[id number] Gentamicin Inj 450 MG In NS Inj 111.25 / 111.25 111.25 / 111.25 100 ML @ 100 mls/hr IV.SIG Q24H ROXY Rx#:[id number] Ancef Inj 2,000 MG In NS Inj 80 200 / 200 100 / 100 100 / 100 ML @ 200 mls/hr IV.SIG Q8H ROXY Rx#:[id number] Oral 240 / 240 Output: Urine 850 / 850 Other: Date of Last Bowel Movement 11/03/17 11/03/17 15:55 Abscess - Other Gram Stain - Final 11/03/17 15:55 Abscess - Other Wound Culture - Preliminary 11/03/17 06:00 Blood - Peripheral Aerobic Blood Culture - Preliminary No growth in 1 day 11/03/17 06:00 Blood - Peripheral Anaerobic Blood Culture - Preliminary No growth in 1 day 11/02/17 06:48 Blood - Peripheral Aerobic Blood Culture - Preliminary No growth in 2 days 11/02/17 06:48 Blood - Peripheral Anaerobic Blood Culture - Preliminary No growth in 2 days 10/31/17 06:15 Blood - Peripheral Aerobic Blood Culture - Final Staphylococcus aureus 10/31/17 06:15 Blood - Peripheral Anaerobic Blood Culture - Preliminary No growth in 4 days 10/30/17 14:05 Blood - Peripheral Aerobic Blood Culture - Final No growth in 5 days 10/30/17 14:05 Blood - Peripheral Anaerobic Blood Culture - Final No growth in 5 days 11/03/17 15:55 Abscess - Other Fungal Smear - Pending 11/03/17 15:55 Abscess - Other Fungal Culture - Pending 11/03/17 15:55 Abscess - Other Acid Fast Bacilli Smear - Pending 11/03/17 15:55 Abscess - Other Mycobacterial Culture - Pending 10/29/17 08:33 Blood - Peripheral Aerobic Blood Culture - Final Staphylococcus aureus 10/29/17 08:33 Blood - Peripheral Anaerobic Blood Culture - Final No growth in 5 days 10/29/17 08:38 Blood - Peripheral Aerobic Blood Culture - Final Staphylococcus aureus 10/29/17 08:38 Blood - Peripheral Anaerobic Blood Culture - Final No growth in 5 days 10/28/17 21:12 Blood - Peripheral Aerobic Blood Culture - Final Staphylococcus aureus 10/28/17 21:12 Blood - Peripheral Anaerobic Blood Culture - Final No growth in 5 days 10/27/17 20:50 Blood - Peripheral Aerobic Blood Culture - Final Staphylococcus aureus 10/27/17 20:50 Blood - Peripheral Anaerobic Blood Culture - Final No growth in 5 days 10/27/17 20:15 Blood - Peripheral Aerobic Blood Culture - Final Staphylococcus aureus 10/27/17 20:15 Blood - Peripheral Anaerobic Blood Culture - Final No growth in 5 days Lab - Hematology Results 11/03/17 11/04/17 06:05 07:38 WBC 12.2 H 10.0 RBC 3.75 L 3.63 L Hgb 11.6 L 11.6 L Hct 34.4 L 33.1 L MCV 91.8 91.0 MCH 31.1 31.8 MCHC 33.8 35.0 RDW 13.7 13.9 Plt Count 344 370 MPV 7.3 7.1 Neut % (Auto) 76.8 H Lymph % (Auto) 10.9 [place] % (Auto) 10.4 H Eos % (Auto) 1.7 Baso % (Auto) 0.2 Neut # (Auto) 9.3 H Lymph # (Auto) 1.3 [place] # (Auto) 1.3 H Eos # (Auto) 0.2 Baso # (Auto) 0.0 WBC Differential . Differential Comment Auto diff final Lab - Chemistry Results 11/03/17 11/04/17 06:05 07:38 Sodium 135 L 134 L Potassium 3.2 L 3.6 Chloride 99 99 Carbon Dioxide 28.6 29.2 Anion Gap 7 6 BUN 13 13 Creatinine 0.91 0.93 Estimated GFR 84 L 82 L Random Glucose 96 96 Calcium 8.7 8.4 L Magnesium 1.8 Imaging: ITS Impressions CT Consultation 10/28/17 00:00 CONCLUSION: 1. A few dots of air identified in the enlarged left psoas with no obvious drainable fluid collection. Findings may represent an inflammatory phlegmon which could develop into an abscess over the next few days. 2. In addition, the patient was on Plavix therapy. His last dose was administered yesterday. This will have to be held for at least 3 days prior to any intervention. 3. Discussed with Dr. Demarco from infectious disease at the time of this dictation. Abdomen/Pelvis CT 10/29/17 00:00 CONCLUSION: 1. Again a large hypodense area in the left psoas muscle with tiny locules of air, increased from the previous study presumably infection or infected hematoma. 2. Bilateral inguinal hernias right greater than left containing fat Lumbar Spine CT 11/02/17 00:00 CONCLUSION: 1. Left iliac artery aneurysm. 2. Degenerative changes and scoliosis. 3. Left psoas abscess identified extending 11 cm in cephalocaudal dimension. 4. Bilateral hydroureter. Abscess Drainage CT 11/03/17 00:00 CONCLUSION: 1. Uncomplicated CT guided drainage. Chest X-Ray 11/03/17 17:14 CONCLUSION: There is a tortuous aorta. Lungs are clear. I don't see any evidence of a pneumothorax on the left side. Physical Exam: GENERAL: awake and alert, NAD SKIN: Warm and dry. No generalized rash HEAD: Atraumatic. Normocephalic. No temporal wasting, or tenderness. EYES: [place] conjunctiva. No petechia or hemorrhage. No scleral icterus. No injection or drainage. EARS, NOSE AND THROAT: Nose without bleeding or purulent nasal discharge. No sinus tenderness. Mucous membranes pink and moist. No oral lesions noted. NECK: Trachea midline. Supple and not tender, no meningeal signs CARDIOVASCULAR: Regular rate and rhythm. No murmurs, rubs or gallops heard. Pacemaker in L upper chest with no evidence of infection RESPIRATORY: Clear to auscultation. Breath sounds equal bilaterally. No rales , wheezing or rhonchi ABDOMEN: Soft, globular, nondistended, with mild tenderness in LLQ. Drain in bloody - bloody fluid. Bowel sounds present and normoactive. No guarding. No rebound. No organomegaly. EXTREMITIES: No clubbing, cyanosis, or edema. No calf tenderness. NEUROLOGICAL: Grossly non-focal. PSYCHIATRIC: Normal affect, calm and cooperative. LINE: No evidence of infection Assessment and Plan - Plan Impression Staph aureus sepsis, worrisome foe endovascular focus, IE, pacer L psoas fluid collection likely abscess, hematogenous spread S/P CABG 2016 S/P Pacemaker 2015 Recommendation Repeat BC to document clearing Continue IV Ancef Continue IV Gentamicin - follow creatinine - at least 7 days Follow C/S and adjust Abx Monitor progress Explained plan to the patient Will give about 6 weeks IV Abx from date of drainage; explained to patient that if with recurrent infection after completion of Abx, his pacemaker will need to be evaluated for removal
--- NOTE | 2017-11-04 14:26 | P.PNGS ---
Subjective Interval history: Feeling much better after drainage Physical Exam Vital signs: Vital Signs 11/03/17 16:20 11/03/17 16:35 11/03/17 16:47 Temperature Pulse Rate 89 84 86 Respiratory Rate 20 16 20 Blood Pressure 136/83 147/92 H 144/94 H Pulse Oximetry 95 93 L 94 L 11/03/17 18:00 11/03/17 20:00 11/04/17 01:15 Temperature 98.2 F 98.2 F 99.4 F Pulse Rate 90 99 H 81 Respiratory Rate 16 20 20 Blood Pressure 157/91 H 103/66 132/84 Pulse Oximetry 95 95 97 11/04/17 08:00 11/04/17 12:00 Temperature 97.8 F 98.1 F Pulse Rate 93 H 93 H Respiratory Rate 20 20 Blood Pressure 122/85 110/74 Pulse Oximetry 95 95 Intake & Output 11/03/17 11/04/17 11/04/17 18:59 06:59 18:59 Intake Total 811.25 / 811.25 1295 / 1295 2211.25 / 2211.25 Output Total 850 / 850 Balance 811.25 / 811.25 445 / 445 2211.25 / 2211.25 Weight 90.9 kg Intake: IV 811.25 / 811.25 1055 / 1055 2211.25 / 2211.25 NS Inj 1,000 ML @ 125 mls/hr IV 500 / 500 955 / 955 1999 / 1999 .CONT .Q8H ROXY Rx#:[id number] Gentamicin Inj 450 MG In NS Inj 111.25 / 111.25 111.25 / 111.25 100 ML @ 100 mls/hr IV.SIG Q24H ROXY Rx#:[id number] Ancef Inj 2,000 MG In NS Inj 80 200 / 200 100 / 100 100 / 100 ML @ 200 mls/hr IV.SIG Q8H ROXY Rx#:[id number] Oral 240 / 240 Output: Urine 850 / 850 Other: Date of Last Bowel Movement 11/03/17 Narrative: Alert and awake Abd: soft; LEFT flank accordion drain place with bloody purulent drainage Results - Labs 11/10/17 05:18 11/11/17 07:52 Laboratory Results - last 24 hr 11/04/17 11/04/17 07:38 07:38 WBC 10.0 RBC 3.63 L Hgb 11.6 L Hct 33.1 L MCV 91.0 MCH 31.8 MCHC 35.0 RDW 13.9 Plt Count 370 MPV 7.1 Sodium 134 L Potassium 3.6 Chloride 99 Carbon Dioxide 29.2 Anion Gap 6 BUN 13 Creatinine 0.93 Estimated GFR 82 L Random Glucose 96 Calcium 8.4 L - Imaging Imaging: ITS Impressions CT Consultation 10/28/17 00:00 CONCLUSION: 1. A few dots of air identified in the enlarged left psoas with no obvious drainable fluid collection. Findings may represent an inflammatory phlegmon which could develop into an abscess over the next few days. 2. In addition, the patient was on Plavix therapy. His last dose was administered yesterday. This will have to be held for at least 3 days prior to any intervention. 3. Discussed with Dr. Demarco from infectious disease at the time of this dictation. Abdomen/Pelvis CT 10/29/17 00:00 CONCLUSION: 1. Again a large hypodense area in the left psoas muscle with tiny locules of air, increased from the previous study presumably infection or infected hematoma. 2. Bilateral inguinal hernias right greater than left containing fat Lumbar Spine CT 11/02/17 00:00 CONCLUSION: 1. Left iliac artery aneurysm. 2. Degenerative changes and scoliosis. 3. Left psoas abscess identified extending 11 cm in cephalocaudal dimension. 4. Bilateral hydroureter. Abscess Drainage CT 11/03/17 00:00 CONCLUSION: 1. Uncomplicated CT guided drainage. Chest X-Ray 11/03/17 17:14 CONCLUSION: There is a tortuous aorta. Lungs are clear. I don't see any evidence of a pneumothorax on the left side. Assessment and Plan - Assessment (1) Psoas abscess, left Code(s): K68.12 - Psoas muscle abscess Status: Acute Plan: 62 year old male with LEFT psoas muscle abscess -S/p IR drainage yesterday; 8F drain in place -ID following -Afebrile overnight -WBC 10K -Diet as tolerated -GS will see PRN; discussed with Dr. Demarco Much more comfortable after drain placed. As above; will see as needed. The exam, history, and the medical decision-making described in the above note were completed with the assistance of the mid-level provider. I reviewed and agree with the findings presented. I attest that I had a [id number] encounter with the patient on the same day, and personally performed and documented my assessment and findings in the medical record. (2) Acute flank pain Code(s): R10.9 - Unspecified abdominal pain Status: Acute
--- NOTE | 2017-11-04 16:39 | P.PNIM ---
Subjective Interval history: Patient reports he is feeling better today. Drain is in place. Physical Exam Vital signs: Vital Signs 11/03/17 16:35 11/03/17 16:47 11/03/17 18:00 Temperature 98.2 F Pulse Rate 84 86 90 Respiratory Rate 16 20 16 Blood Pressure 147/92 H 144/94 H 157/91 H Pulse Oximetry 93 L 94 L 95 11/03/17 20:00 11/04/17 01:15 11/04/17 08:00 Temperature 98.2 F 99.4 F 97.8 F Pulse Rate 99 H 81 93 H Respiratory Rate 20 20 20 Blood Pressure 103/66 132/84 122/85 Pulse Oximetry 95 97 95 11/04/17 12:00 11/04/17 16:24 Temperature 98.1 F 97.8 F Pulse Rate 93 H 94 H Respiratory Rate 20 19 Blood Pressure 110/74 130/96 H Pulse Oximetry 95 95 Intake & Output 11/03/17 11/04/17 11/04/17 18:59 06:59 18:59 Intake Total 811.25 / 811.25 1295 / 1295 3311.25 / 3311.25 Output Total 850 / 850 Balance 811.25 / 811.25 445 / 445 3311.25 / 3311.25 Weight 90.9 kg Intake: IV 811.25 / 811.25 1055 / 1055 3311.25 / 3311.25 NS Inj 1,000 ML @ 125 mls/hr IV 500 / 500 955 / 955 3000 / 3000 .CONT .Q8H ROXY Rx#:[id number] Gentamicin Inj 450 MG In NS Inj 111.25 / 111.25 111.25 / 111.25 100 ML @ 100 mls/hr IV.SIG Q24H ROXY Rx#:[id number] Ancef Inj 2,000 MG In NS Inj 80 200 / 200 100 / 100 200 / 200 ML @ 200 mls/hr IV.SIG Q8H ROXY Rx#:[id number] Oral 240 / 240 Output: Urine 850 / 850 Other: Date of Last Bowel Movement 11/03/17 Narrative: GENERAL: This is a well-nourished, well-developed patient, in no apparent distress. CARDIOVASCULAR: Normal rate and regular rhythm without murmurs, gallops, or rubs. RESPIRATORY: Good respiratory efforts. Breath sounds equal and clear to auscultation bilaterally. GASTROINTESTINAL: Abdomen soft, non-tender, non-distended. Normal active bowel sounds MUSCULOSKELETAL: Drain in place on the left flank draining serosanguineous fluid. NEURO: Alert & Oriented x4 to person, place, time, situation. Moves all ext x4 PSYCH: Appropriate mood and affect. Results - Labs CBC & Chem 7: 11/04/17 07:38 11/04/17 07:38 Laboratory Results - last 24 hr 11/04/17 11/04/17 07:38 07:38 WBC 10.0 RBC 3.63 L Hgb 11.6 L Hct 33.1 L MCV 91.0 MCH 31.8 MCHC 35.0 RDW 13.9 Plt Count 370 MPV 7.1 Sodium 134 L Potassium 3.6 Chloride 99 Carbon Dioxide 29.2 Anion Gap 6 BUN 13 Creatinine 0.93 Estimated GFR 82 L Random Glucose 96 Calcium 8.4 L Microbiology 11/03/17 15:55 Abscess - Other Fungal Smear - Final No fungal elements seen 11/03/17 15:55 Abscess - Other Gram Stain - Final 11/03/17 15:55 Abscess - Other Wound Culture - Preliminary 11/03/17 06:00 Blood - Peripheral Aerobic Blood Culture - Preliminary No growth in 1 day 11/03/17 06:00 Blood - Peripheral Anaerobic Blood Culture - Preliminary No growth in 1 day 11/02/17 06:48 Blood - Peripheral Aerobic Blood Culture - Preliminary No growth in 2 days 11/02/17 06:48 Blood - Peripheral Anaerobic Blood Culture - Preliminary No growth in 2 days 10/31/17 06:15 Blood - Peripheral Aerobic Blood Culture - Final Staphylococcus aureus 10/31/17 06:15 Blood - Peripheral Anaerobic Blood Culture - Preliminary No growth in 4 days 10/30/17 14:05 Blood - Peripheral Aerobic Blood Culture - Final No growth in 5 days 10/30/17 14:05 Blood - Peripheral Anaerobic Blood Culture - Final No growth in 5 days - Imaging Impressions Abscess Drainage CT 11/03/17 00:00 CONCLUSION: 1. Uncomplicated CT guided drainage. Chest X-Ray 11/03/17 17:14 CONCLUSION: There is a tortuous aorta. Lungs are clear. I don't see any evidence of a pneumothorax on the left side. - Procedures 10/28/17- RACHEL Assessment and Plan - Assessment (1) Psoas abscess, left Code(s): K68.12 - Psoas muscle abscess Status: Acute (2) Intractable pain Code(s): R52 - Pain, unspecified Status: Acute (3) Hypokalemia Code(s): E87.6 - Hypokalemia Status: Acute (4) Bacteremia due to Staphylococcus aureus Code(s): R78.81 - Bacteremia Status: Acute - Plan 62-year-old male with a past medical history of coronary artery disease, status post CABG 5, status post pacemaker placement, and dyslipidemia. The patient presented to the emergency department 3 days of left-sided flank pain. He initially thought he had pulled a muscle while doing yard work. The patient's symptoms were getting worse and he came into our emergency department for evaluation. 1. MSSA bacteremia with left psoas abscess. CT scan of the abdomen and pelvis shows a left psoas muscle with findings consistent with a psoas abscess. Blood cultures are positive for staph aureus. Repeat blood cultures are still positive. A repeat CT scan of the abdomen and pelvis shows growing size of the abscess. The surgical team is recommending interventional radiology to drain the abscess. A RACHEL was also done which did not show any valvular vegetations or vegetations on the pacemaker lead. He will be continued on IV Ancef and gentamicin as per infectious disease recommendations. -Status post drainage by IR. Drain is currently in place. Follow output. - Continue IV Antibiotics. Discussed with ID. He will need 6 weeks of IV antibiotics. -Fluid cultures pending. 2. Coronary artery disease status post CABG/dyslipidemia Continue current medications. Plavix was held for drainage of the abscess. As per the patient he was noncompliant with his aspirin and Plavix and the rest of his medications at home over the past year. Plan to resume Plavix and aspirin tomorrow. No DVT pharmacotherapy prophylaxis as the patient will l go to the OR for drainage of the abscess today
[2017-11-05] MEDS: ceFAZolin Inj 2,000 MG in Sodium Chlor 0.9% Inj 80 ML IV.SIG SCH ×3 (00:34→15:54)
[2017-11-05] MEDS: Sod Chloride 0.9% Inj 1,000 ML IV.CONT SCH ×5 (02:39→15:53)
[2017-11-05 06:02] LABS: Hematocrit 35.7 % (39.0-51.0); Hemoglobin 12.1 gm/dL (13.0-17.0); Mean Corpuscular Hemoglobin 31.5 pg (27.0-34.0); Mean Corpuscular Volume 92.8 fL (80.0-100.0); Mean Platelet Volume 7.2 fL (7.0-11.0); Platelet Count 426 th/mm3 (150-450); Red Blood Count 3.85 mil/mm3 (4.50-5.90); Red Cell Distribution Width 13.8 % (11.6-17.2); White Blood Count 8.6 th/mm3 (4.0-11.0)
[2017-11-05 06:27] LABS: Calcium 8.6 mg/dL (8.5-10.1); Carbon Dioxide 29.6 meq/L (21.0-32.0); Potassium 3.9 meq/L (3.5-5.1)
[2017-11-05] MEDS: Furosemide 40 MG Tablet PO SCH (08:47)
[2017-11-05] MEDS: Amiodarone 200 MG Tablet PO SCH (08:47)
[2017-11-05] MEDS: Lisinopril 20 MG Tablet PO SCH (08:47)
[2017-11-05] MEDS: Senna/Docusate Sodium 8.6/50 MG Tablet PO SCH ×2 (08:47→20:19)
[2017-11-05] MEDS: GENTAMICIN IV.SIG SCH (12:47)
[2017-11-05] MEDS: SODIUM CHLOR 0.9% IV.SIG SCH (12:47)
--- NOTE | 2017-11-05 14:15 | P.PNID ---
Subjective Remarks: Patient is a 62-year-old male, presented to the hospital complaining of 4-5 day history of left-sided flank pain. He was apparently working in the yard, pulling weeds and he was doing this for 2 days. About 4 days prior to admission he started experiencing left-sided flank, side pain and the pain was quite severe that he was not able to do much. He denies any fever chills or sweats. He has not had any nausea or vomiting. He has not had any problem with his bowels. He has been voiding without any problem. Patient has not had any treatment for any infection in the last several months. On presentation he has had some low-grade temps. His WBC is normal. CT of the abdomen and pelvis showing asymmetry in his psoas muscle with the left being big and there are some foci of gas. There is no other abnormality seen. Blood cultures done on admission are now reported as growing gram-positive cocci in clusters. His urinalysis is unremarkable. Patient has known coronary artery disease and had undergone CABG in 2016. He stated that his pacemaker was placed about a year before his CABG. This was done in [place]. Patient has not had any follow-up with any distribution associate. Infectious disease consultation has been requested to evaluate the patient with positive blood culture. Patient still complaining of significant pain in the left flank. Notes reviewed Afebrile Pain is better Has drain to the L psoas - output is bloody and not a lot C/S of fluid Staph aureus last (+) BC 10/[address] noted All BC (+) MSSA - last +BC 10/31 WBC normal now Creatinine slowly creeping up Antibiotics: Ancef Gentamicin Lines: PIV Past Medical History: Coronary artery disease High cholesterol Pacemaker Hx of CABG Allergies/Adverse Reactions: Allergies No Known Allergies Allergy (Unverified 10/25/17 22:42) Objective Vital Signs 11/04/17 16:24 11/04/17 20:30 11/05/17 00:00 Temperature 97.8 F 97.9 F 98.1 F Pulse Rate 94 H 97 H 94 H Respiratory Rate 19 19 20 Blood Pressure 130/96 H 112/90 156/96 H Pulse Oximetry 95 95 95 11/05/17 04:00 11/05/17 08:00 11/05/17 12:00 Temperature 99.3 F 98.6 F 98.1 F Pulse Rate 99 H 98 H 92 H Respiratory Rate 18 17 18 Blood Pressure 153/98 H 133/91 H 121/70 Pulse Oximetry 96 90 L 92 L Intake & Output 11/04/17 11/05/17 11/05/17 18:59 06:59 18:59 Intake Total 3791.25 / 3791.25 1820 / 1820 2099 / 2100 Output Total 1500 / 1500 1325 / 1325 Balance 2291.25 / 2291.25 495 / 495 2099 / 2099 Weight 90.9 kg Intake: IV 3311.25 / 3311.25 1100 / 1100 2100 / 2100 NS Inj 1,000 ML @ 125 mls/hr IV 3000 / 3000 1000 / 1000 2000 / 2000 .CONT .Q8H [facility] Rx#:[id number] Gentamicin Inj 450 MG In NS Inj 111.25 / 111.25 100 ML @ 100 mls/hr IV.SIG Q24H [facility] Rx#:[id number] Ancef Inj 2,000 MG In NS Inj 80 200 / 200 100 / 100 100 / 100 ML @ 200 mls/hr IV.SIG Q8H [facility] Rx#:[id number] Oral 480 / 480 720 / 720 Output: Urine 1500 / 1500 1300 / 1300 Wound Drainage Left Lateral Back Other: Date of Last Bowel Movement 11/04/17 # Bowel Movements 1 11/03/17 15:55 Abscess - Other Gram Stain - Final 11/03/17 15:55 Abscess - Other Wound Culture - Preliminary Staphylococcus aureus 11/03/17 15:55 Abscess - Other Acid Fast Bacilli Smear - Final No acid fast bacilli seen 11/03/17 15:55 Abscess - Other Mycobacterial Culture - Pending 11/03/17 06:00 Blood - Peripheral Aerobic Blood Culture - Preliminary No growth in 2 days 11/03/17 06:00 Blood - Peripheral Anaerobic Blood Culture - Preliminary No growth in 2 days 11/02/17 06:48 Blood - Peripheral Aerobic Blood Culture - Preliminary No growth in 3 days 11/02/17 06:48 Blood - Peripheral Anaerobic Blood Culture - Preliminary No growth in 3 days 10/31/17 06:15 Blood - Peripheral Aerobic Blood Culture - Final Staphylococcus aureus 10/31/17 06:15 Blood - Peripheral Anaerobic Blood Culture - Final No growth in 5 days 11/03/17 15:55 Abscess - Other Fungal Smear - Final No fungal elements seen 11/03/17 15:55 Abscess - Other Fungal Culture - Pending 10/30/17 14:05 Blood - Peripheral Aerobic Blood Culture - Final No growth in 5 days 10/30/17 14:05 Blood - Peripheral Anaerobic Blood Culture - Final No growth in 5 days 10/29/17 08:33 Blood - Peripheral Aerobic Blood Culture - Final Staphylococcus aureus 10/29/17 08:33 Blood - Peripheral Anaerobic Blood Culture - Final No growth in 5 days 10/29/17 08:38 Blood - Peripheral Aerobic Blood Culture - Final Staphylococcus aureus 10/29/17 08:38 Blood - Peripheral Anaerobic Blood Culture - Final No growth in 5 days 10/28/17 21:12 Blood - Peripheral Aerobic Blood Culture - Final Staphylococcus aureus 10/28/17 21:12 Blood - Peripheral Anaerobic Blood Culture - Final No growth in 5 days Lab - Hematology Results 11/04/17 11/05/17 07:38 05:10 WBC 10.0 8.6 RBC 3.63 L 3.85 L Hgb 11.6 L 12.1 L Hct 33.1 L 35.7 L MCV 91.0 92.8 MCH 31.8 31.5 MCHC 35.0 34.0 RDW 13.9 13.8 Plt Count 370 426 MPV 7.1 7.2 Lab - Chemistry Results 11/04/17 11/05/17 07:38 05:10 Sodium 134 L 138 Potassium 3.6 3.9 Chloride 99 100 Carbon Dioxide 29.2 29.6 Anion Gap 6 8 BUN 13 12 Creatinine 0.93 1.03 Estimated GFR 82 L 73 L Random Glucose 96 97 Calcium 8.4 L 8.6 Imaging: ITS Impressions CT Consultation 10/28/17 00:00 CONCLUSION: 1. A few dots of air identified in the enlarged left psoas with no obvious drainable fluid collection. Findings may represent an inflammatory phlegmon which could develop into an abscess over the next few days. 2. In addition, the patient was on Plavix therapy. His last dose was administered yesterday. This will have to be held for at least 3 days prior to any intervention. 3. Discussed with Dr. Demarco from infectious disease at the time of this dictation. Abdomen/Pelvis CT 10/29/17 00:00 CONCLUSION: 1. Again a large hypodense area in the left psoas muscle with tiny locules of air, increased from the previous study presumably infection or infected hematoma. 2. Bilateral inguinal hernias right greater than left containing fat Lumbar Spine CT 11/02/17 00:00 CONCLUSION: 1. Left iliac artery aneurysm. 2. Degenerative changes and scoliosis. 3. Left psoas abscess identified extending 11 cm in cephalocaudal dimension. 4. Bilateral hydroureter. Abscess Drainage CT 11/03/17 00:00 CONCLUSION: 1. Uncomplicated CT guided drainage. Chest X-Ray 11/03/17 17:14 CONCLUSION: There is a tortuous aorta. Lungs are clear. I don't see any evidence of a pneumothorax on the left side. Physical Exam: GENERAL: awake and alert, NAD SKIN: Warm and dry. No generalized rash EYES: [place] conjunctiva. No petechia or hemorrhage. No scleral icterus. No injection or drainage. EARS, NOSE AND THROAT: Nose without bleeding or purulent nasal discharge. No sinus tenderness. Mucous membranes pink and moist. No oral lesions noted. NECK: Trachea midline. Supple and not tender, no meningeal signs CARDIOVASCULAR: Regular rate and rhythm. No murmurs, rubs or gallops heard. Pacemaker in L upper chest with no evidence of infection RESPIRATORY: Clear to auscultation. Breath sounds equal bilaterally. No rales , wheezing or rhonchi ABDOMEN: Soft, globular, nondistended, with mild tenderness in LLQ. Drain in bloody - min bloody fluid. Bowel sounds present and normoactive. No guarding. No rebound. No organomegaly. EXTREMITIES: No clubbing, cyanosis, or edema. No calf tenderness. NEUROLOGICAL: Grossly non-focal. PSYCHIATRIC: Normal affect, calm and cooperative. LINE: No evidence of infection Assessment and Plan - Plan Impression Staph aureus sepsis, worrisome foe endovascular focus, IE, pacer L psoas fluid collection likely abscess, hematogenous spread S/P CABG 2016 S/P Pacemaker 2015 Recommendation Repeat BC to document clearing Continue IV Ancef Continue IV Gentamicin - follow creatinine, slowly increasing - if still trending up, will D/C tomorrow Follow C/S and adjust Abx Monitor progress Explained plan to the patient Will give about 6 weeks IV Abx from date of drainage; explained to patient that if with recurrent infection after completion of Abx, his pacemaker will need to be evaluated for removal
--- NOTE | 2017-11-05 14:39 | P.PNCA ---
Subjective Interval history: Patient denies any chest pain, pressure, palpitations, dizziness, edema or shortness of breath. Patient states that he is feeling much better and wants to know when he can go home. Medications and Allergies Allergies Allergy/AdvReac Type Severity Reaction Status Date / Time No Known Allergies Allergy Unverified 10/25/17 22:42 Home Medications Medication Instructions Recorded Confirmed Type amiodarone 200 mg PO DAILY 10/26/17 10/26/17 History atorvastatin 40 mg PO DAILY 10/26/17 10/26/17 History clopidogrel 75 mg PO DAILY 10/26/17 10/26/17 History furosemide 40 mg PO DAILY 10/26/17 10/26/17 History levothyroxine 25 mcg PO DAILY 10/26/17 10/26/17 History meloxicam 7.5 mg PO BID 10/26/17 10/26/17 History metoprolol succinate 25 mg PO DAILY 10/26/17 10/26/17 History Active Medications: Active Medications Acetaminophen (Tylenol) 650 mg PO Q4H PRN PRN Reason: Temp > 100.4/LAURA Hydrocodone Bitart/Acetaminophen ([place] 5/325) 1 tab PO Q6H PRN PRN Reason: pain scale 3-6 Last Admin: 11/03/17 18:46 Dose: 1 tab Hydrocodone Bitart/Acetaminophen ([place] 7.5/325) 1 tab PO Q6H PRN PRN Reason: pain scale 7-10 Last Admin: 11/05/17 12:48 Dose: 1 tab Al Hydroxide/Mg Hydroxide (Milk Of Magnmohsen Liq) 30 ml PO Q12H PRN PRN Reason: Mild Constipation Amiodarone HCl (Cordarone) 200 mg PO DAILY [facility] Last Admin: 11/05/17 08:47 Dose: 200 mg Atorvastatin Calcium (Lipitor) 40 mg PO DAILY [facility] Last Admin: 11/05/17 08:47 Dose: 40 mg Bisacodyl (Dulcolax Supp) 10 mg RECTAL DAILY PRN PRN Reason: SEVERE CONSITIPATION Cyclobenzaprine HCl (Flexeril) 10 mg PO Q8H PRN PRN Reason: muscle spasms Last Admin: 11/05/17 06:31 Dose: 10 mg Furosemide (Lasix) 40 mg PO DAILY [facility] Last Admin: 11/05/17 08:47 Dose: 40 mg Sodium Chloride (Ns Inj) 1,000 mls @ 0 mls/hr IV.SIG BOLUS [facility] Last Infusion: 11/01/17 22:34 Dose: Infused Sodium Chloride (Ns Inj) 1,000 mls @ 100 mls/hr IV.CONT .Q10H [facility] Last Admin: 11/05/17 12:47 Dose: Not Given Cefazolin Sodium 2,000 mg/ (Sodium Chloride) 100 mls @ 200 mls/hr IV.SIG Q8H [facility] Last Infusion: 11/05/17 08:51 Dose: Infused Pharmacy Profile Note (Gentamicin Consult Pharmacy) 0 mls @ 0 mls/hr OTHER UNSCH [facility] Gentamicin Sulfate 450 mg/ (Sodium Chloride) 111.25 mls @ 100 mls/hr IV.SIG Q24H [facility] Last Admin: 11/05/17 12:47 Dose: 100 mls/hr Sodium Chloride (Ns Inj) 1,000 mls @ 125 mls/hr IV.CONT .Q8H [facility] Last Infusion: 11/05/17 08:52 Dose: Infused Lactulose (Lactulose Liq) 30 ml PO DAILY PRN PRN Reason: SEVERE CONSITIPATION Levothyroxine Sodium (Synthroid) 25 mcg PO DAILY@0600 [facility] Last Admin: 11/05/17 05:24 Dose: 25 mcg Lisinopril (Prinivil) 20 mg PO DAILY [facility] Last Admin: 11/05/17 08:47 Dose: 20 mg Metoprolol Succinate (Toprol Xl) 25 mg PO DAILY [facility] Last Admin: 11/05/17 08:47 Dose: 25 mg Miscellaneous Information ([facility] Ordered Lab Info) 1 each OTHER ONCE ONE Stop: 11/06/17 11:46 Morphine Sulfate (Morphine Inj) 2 mg IV.PUSH Q3H PRN PRN Reason: BREAKTHROUGH PAIN Last Admin: 11/01/17 01:45 Dose: 2 mg Ondansetron HCl (Zofran Inj) 4 mg IV.PUSH Q6H PRN PRN Reason: NAUSEA OR VOMITING Senna/Docusate Sodium ([place]a Paula-Colace) 1 tab PO BID [facility] Last Admin: 11/05/17 08:47 Dose: 1 tab Sennosides (Senokot) 17.2 mg PO Q12H PRN PRN Reason: Moderate Constipation Sodium Chloride (Ns Flush) 2 ml IV.FLUSH BID [facility] Last Admin: 11/05/17 08:48 Dose: 2 ml Sodium Chloride (Ns Flush) 2 ml IV.FLUSH PRN PRN PRN Reason: FLUSH AFTER USING IV ACCESS Sodium Chloride (Ns Inj) 5 ml IRRIGATION DAILY [facility] Last Admin: 11/05/17 08:48 Dose: 5 ml Physical Exam Vital signs: Vital Signs 11/04/17 16:24 11/04/17 20:30 11/05/17 00:00 Temperature 97.8 F 97.9 F 98.1 F Pulse Rate 94 H 97 H 94 H Respiratory Rate 19 19 20 Blood Pressure 130/96 H 112/90 156/96 H Pulse Oximetry 95 95 95 11/05/17 04:00 11/05/17 08:00 11/05/17 12:00 Temperature 99.3 F 98.6 F 98.1 F Pulse Rate 99 H 98 H 92 H Respiratory Rate 18 17 18 Blood Pressure 153/98 H 133/91 H 121/70 Pulse Oximetry 96 90 L 92 L Intake & Output 11/04/17 11/05/17 11/05/17 18:59 06:59 18:59 Intake Total 3791.25 / 3791.25 1820 / 1820 2099 / 2100 Output Total 1500 / 1500 1325 / 1325 Balance 2291.25 / 2291.25 495 / 495 2099 / 2100 Weight 90.9 kg Intake: IV 3311.25 / 3311.25 1100 / 1100 2100 / 2100 NS Inj 1,000 ML @ 125 mls/hr IV 3000 / 3000 1000 / 1000 2000 / 2000 .CONT .Q8H [facility] Rx#:[id number] Gentamicin Inj 450 MG In NS Inj 111.25 / 111.25 100 ML @ 100 mls/hr IV.SIG Q24H [facility] Rx#:[id number] Ancef Inj 2,000 MG In NS Inj 80 200 / 200 100 / 100 100 / 100 ML @ 200 mls/hr IV.SIG Q8H [facility] Rx#:[id number] Oral 480 / 480 720 / 720 Output: Urine 1500 / 1500 1300 / 1300 Wound Drainage Left Lateral Back Other: Date of Last Bowel Movement 11/04/17 # Bowel Movements 1 - Constitutional no acute distress - Routine HEENT Exam Head: Present: normocephalic Eye: Present: PERRL ENT: Present: mucous membranes moist - Routine Neck Exam Present: full ROM - Routine Respiratory Exam Present: CTA bilaterally - Routine Cardiovascular Exam Present: S1, S2. Absent: murmur, gallop, rubs - Routine Abdominal Exam Present: normoactive bowel sounds Comments: drain to the left psoas muscle. Draining serosanguineous fluid. - Routine Extremities Exam Present: full ROM, pulses intact, normal capillary refill. Absent: cyanosis, clubbing, edema - Routine Skin Exam Present: intact - Routine Neurological Exam Present: oriented X3 - Detailed Neurological Exam: Coma Scale Eye Opening: Spontaneous Verbal Response: Oriented Motor Response: [place] commands [place] Coma Scale Total: 15 - Routine Psychiatric Exam Present: normal affect Results 11/05/17 05:10 11/05/17 05:10 CBC 11/04/17 11/05/17 Range/Units 07:38 05:10 WBC 10.0 8.6 (4.0-11.0) th/mm3 RBC 3.63 L 3.85 L (4.50-5.90) mil/mm3 Hgb 11.6 L 12.1 L (13.0-17.0) gm/dL Hct 33.1 L 35.7 L (39.0-51.0) % Plt Count 370 426 (150-450) th/mm3 Comprehensive Metabolic Panel 11/04/17 11/05/17 Range/Units 07:38 05:10 Sodium 134 L 138 (136-145) meq/L Potassium 3.6 3.9 (3.5-5.1) meq/L Chloride 99 100 (98-107) meq/L Carbon Dioxide 29.2 29.6 (21.0-32.0) meq/L BUN 13 12 (7-18) mg/dL Creatinine 0.93 1.03 (0.60-1.30) mg/dL Calcium 8.4 L 8.6 (8.5-10.1) mg/dL Intake and Output 11/04/17 11/05/17 11/05/17 22:59 06:59 14:59 Intake Total 1580 / 1580 1820 / 1820 2099 Output Total 1725 / 1725 1100 / 1100 Balance -145 / -145 720 / 720 2099 Intake: IV 1100 / 1100 1100 / 1100 2099 NS Inj 1,000 ML @ 125 mls/hr IV 1000 / 1000 1000 / 1000 1999 / 1999 .CONT .Q8H [facility] Rx#:[id number] Ancef Inj 2,000 MG In NS Inj 80 100 / 100 100 / 100 100 / 100 ML @ 200 mls/hr IV.SIG Q8H [facility] Rx#:[id number] Oral 480 / 480 720 / 720 Output: Urine 1700 / 1700 1100 / 1100 Wound Drainage 25 / 0 / 0 Left Lateral Back 0 / 0 Other: Date of Last Bowel Movement 11/04/17 # Bowel Movements 1 Weight 90.9 kg - Imaging and Cardiology Imaging: Impressions Abscess Drainage CT 11/03/17 00:00 CONCLUSION: 1. Uncomplicated CT guided drainage. Chest X-Ray 11/03/17 17:14 CONCLUSION: There is a tortuous aorta. Lungs are clear. I don't see any evidence of a pneumothorax on the left side. Assessment and Plan - Assessment (1) Bacteremia due to Staphylococcus aureus Code(s): R78.81 - Bacteremia Status: Acute (2) Bacteremia Code(s): R78.81 - Bacteremia Status: Acute (3) Psoas abscess, left Code(s): K68.12 - Psoas muscle abscess Status: Acute (4) Calculus, renal Code(s): N20.0 - Calculus of kidney Status: Acute (5) Acute flank pain Code(s): R10.9 - Unspecified abdominal pain Status: Acute (6) Intractable pain Code(s): R52 - Pain, unspecified Status: Acute (7) Hypokalemia Code(s): E87.6 - Hypokalemia Status: Acute - Plan No new cardiac issues. Remains stable from cardiac standpoint. RACHEL done on 10-28-17 and showed no evidence of valvular vegetation, no evidence of pacemaker lead vegetation, preserved left ventricular systolic function, trace mitral valve regurgitation and mild tricuspid valve regurgitation. Continue with current antibiotic treatment per infectious disease. Drain in the left psoas muscle is draining serosanguineous fluid. Continue to increase activity as patient tolerates. The patient was seen and evaluated by Dr. Araujo who participated in care, management and decision making. - Attending Attestation Patient seen and examined. I reviewed and agree with the evaluation and plan as presented. Overall improvement. No new cardiac issues. Continue current program.
--- NOTE | 2017-11-05 17:26 | P.PNIM ---
Subjective Interval history: Patient reports he is feeling better today. No new issues. No fevers. Physical Exam Vital signs: Vital Signs 11/04/17 20:30 11/05/17 00:00 11/05/17 04:00 Temperature 97.9 F 98.1 F 99.3 F Pulse Rate 97 H 94 H 99 H Respiratory Rate 19 20 18 Blood Pressure 112/90 156/96 H 153/98 H Pulse Oximetry 95 95 96 11/05/17 08:00 11/05/17 12:00 11/05/17 16:00 Temperature 98.6 F 98.1 F 98.0 F Pulse Rate 98 H 92 H 89 Respiratory Rate 17 18 18 Blood Pressure 133/91 H 121/70 103/73 Pulse Oximetry 90 L 92 L 92 L 11/05/17 16:10 Temperature 98 F Pulse Rate 89 Respiratory Rate 18 Blood Pressure 103/73 Pulse Oximetry 92 L Intake & Output 11/04/17 11/05/17 11/05/17 18:59 06:59 18:59 Intake Total 3791.25 / 3791.25 1820 / 1820 3311.25 / 3311.25 Output Total 1500 / 1500 1325 / 1325 Balance 2291.25 / 2291.25 495 / 495 3311.25 / 3311.25 Weight 90.9 kg Intake: IV 3311.25 / 3311.25 1100 / 1100 3311.25 / 3311.25 NS Inj 1,000 ML @ 125 mls/hr IV 3000 / 3000 1000 / 1000 3000 / 3000 .CONT .Q8H [facility] Rx#:[id number] Gentamicin Inj 450 MG In NS Inj 111.25 / 111.25 111.25 / 111.25 100 ML @ 100 mls/hr IV.SIG Q24H [facility] Rx#:[id number] Ancef Inj 2,000 MG In NS Inj 80 200 / 200 100 / 100 200 / 200 ML @ 200 mls/hr IV.SIG Q8H [facility] Rx#:[id number] Oral 480 / 480 720 / 720 Output: Urine 1500 / 1500 1300 / 1300 Wound Drainage Left Lateral Back Other: Date of Last Bowel Movement 11/04/17 # Bowel Movements 1 Narrative: GENERAL: This is a well-nourished, well-developed patient, in no apparent distress. CARDIOVASCULAR: Normal rate and regular rhythm without murmurs, gallops, or rubs. RESPIRATORY: Good respiratory efforts. Breath sounds equal and clear to auscultation bilaterally. GASTROINTESTINAL: Abdomen soft, non-tender, non-distended. Normal active bowel sounds MUSCULOSKELETAL: Drain in place on the left flank minimal draining serosanguineous fluid. NEURO: Alert & Oriented x4 to person, place, time, situation. Moves all ext x4 PSYCH: Appropriate mood and affect. Results - Labs CBC & Chem 7: 11/05/17 05:10 11/05/17 05:10 Laboratory Results - last 24 hr 11/05/17 11/05/17 05:10 05:10 WBC 8.6 RBC 3.85 L Hgb 12.1 L Hct 35.7 L MCV 92.8 MCH 31.5 MCHC 34.0 RDW 13.8 Plt Count 426 MPV 7.2 Sodium 138 Potassium 3.9 Chloride 100 Carbon Dioxide 29.6 Anion Gap 8 BUN 12 Creatinine 1.03 Estimated GFR 73 L Random Glucose 97 Calcium 8.6 Microbiology 11/03/17 15:55 Abscess - Other Gram Stain - Final 11/03/17 15:55 Abscess - Other Wound Culture - Preliminary Staphylococcus aureus 11/03/17 15:55 Abscess - Other Acid Fast Bacilli Smear - Final No acid fast bacilli seen 11/03/17 06:00 Blood - Peripheral Aerobic Blood Culture - Preliminary No growth in 2 days 11/03/17 06:00 Blood - Peripheral Anaerobic Blood Culture - Preliminary No growth in 2 days 11/02/17 06:48 Blood - Peripheral Aerobic Blood Culture - Preliminary No growth in 3 days 11/02/17 06:48 Blood - Peripheral Anaerobic Blood Culture - Preliminary No growth in 3 days 10/31/17 06:15 Blood - Peripheral Aerobic Blood Culture - Final Staphylococcus aureus 10/31/17 06:15 Blood - Peripheral Anaerobic Blood Culture - Final No growth in 5 days 11/03/17 15:55 Abscess - Other Fungal Smear - Final No fungal elements seen - Procedures 10/28/17- RACHEL Assessment and Plan - Assessment (1) Psoas abscess, left Code(s): K68.12 - Psoas muscle abscess Status: Acute (2) Intractable pain Code(s): R52 - Pain, unspecified Status: Acute (3) Hypokalemia Code(s): E87.6 - Hypokalemia Status: Acute (4) Bacteremia due to Staphylococcus aureus Code(s): R78.81 - Bacteremia Status: Acute - Plan 62-year-old male with a past medical history of coronary artery disease, status post CABG 5, status post pacemaker placement, and dyslipidemia. The patient presented to the emergency department 3 days of left-sided flank pain. He initially thought he had pulled a muscle while doing yard work. The patient's symptoms were getting worse and he came into our emergency department for evaluation. 1. MSSA bacteremia with left psoas abscess. CT scan of the abdomen and pelvis shows a left psoas muscle with findings consistent with a psoas abscess. Blood cultures are positive for staph aureus. Repeat blood cultures are still positive. A repeat CT scan of the abdomen and pelvis shows growing size of the abscess. The surgical team is recommending interventional radiology to drain the abscess. A RACHEL was also done which did not show any valvular vegetations or vegetations on the pacemaker lead. He will be continued on IV Ancef and gentamicin as per infectious disease recommendations. -Status post drainage by IR. Drain is currently in place. Follow output. - Continue IV Antibiotics. Discussed with ID. He will need 6 weeks of IV antibiotics. -Fluid cultures pending. 2. Coronary artery disease status post CABG/dyslipidemia Continue current medications. Plavix was held for drainage of the abscess. As per the patient he was noncompliant with his aspirin and Plavix and the rest of his medications at home over the past year. Plan to resume aspirin in AM.
[2017-11-06] MEDS: Sod Chloride 0.9% Inj 1,000 ML IV.CONT SCH ×7 (00:24→20:16)
[2017-11-06] MEDS: ceFAZolin Inj 2,000 MG in Sodium Chlor 0.9% Inj 80 ML IV.SIG SCH ×4 (00:56→22:11)
[2017-11-06 08:16] LABS: Carbon Dioxide 29.5 meq/L (21.0-32.0)
[2017-11-06] MEDS: Lisinopril 20 MG Tablet PO SCH (08:27)
[2017-11-06] MEDS: Furosemide 40 MG Tablet PO SCH (08:28)
[2017-11-06] MEDS: Amiodarone 200 MG Tablet PO SCH (08:28)
[2017-11-06] MEDS: Senna/Docusate Sodium 8.6/50 MG Tablet PO SCH ×2 (08:28→20:17)
[2017-11-06] MEDS ORDERED: Pharmacy Ordered Lab Info OTHER ONE (11:45)
[2017-11-06] MEDS: SODIUM CHLOR 0.9% IV.SIG SCH (12:12)
[2017-11-06] MEDS: GENTAMICIN IV.SIG SCH (12:12)
--- NOTE | 2017-11-06 13:16 | P.PNCA ---
Subjective Interval history: Patient resting comfortably in bed, states that he is feeling much better. He denies any chest pain, pressure, palpitations, dizziness, edema or shortness of breath. Medications and Allergies Allergies Allergy/AdvReac Type Severity Reaction Status Date / Time No Known Allergies Allergy Unverified 10/25/17 22:42 Home Medications Medication Instructions Recorded Confirmed Type amiodarone 200 mg PO DAILY 10/26/17 10/26/17 History atorvastatin 40 mg PO DAILY 10/26/17 10/26/17 History clopidogrel 75 mg PO DAILY 10/26/17 10/26/17 History furosemide 40 mg PO DAILY 10/26/17 10/26/17 History levothyroxine 25 mcg PO DAILY 10/26/17 10/26/17 History meloxicam 7.5 mg PO BID 10/26/17 10/26/17 History metoprolol succinate 25 mg PO DAILY 10/26/17 10/26/17 History Active Medications: Active Medications Acetaminophen (Tylenol) 650 mg PO Q4H PRN PRN Reason: Temp > 100.4/LAURA Hydrocodone Bitart/Acetaminophen ([place] 5/325) 1 tab PO Q6H PRN PRN Reason: pain scale 3-6 Last Admin: 11/03/17 18:46 Dose: 1 tab Hydrocodone Bitart/Acetaminophen ([place] 7.5/325) 1 tab PO Q6H PRN PRN Reason: pain scale 7-10 Last Admin: 11/06/17 07:19 Dose: 1 tab Al Hydroxide/Mg Hydroxide (Milk Of [place] Liq) 30 ml PO Q12H PRN PRN Reason: Mild Constipation Amiodarone HCl (Cordarone) 200 mg PO DAILY [facility] Last Admin: 11/06/17 08:28 Dose: 200 mg Atorvastatin Calcium (Lipitor) 40 mg PO DAILY [facility] Last Admin: 11/06/17 08:28 Dose: 40 mg Bisacodyl (Dulcolax Supp) 10 mg RECTAL DAILY PRN PRN Reason: SEVERE CONSITIPATION Clopidogrel Bisulfate (Plavix) 75 mg PO DAILY [facility] Last Admin: 11/06/17 10:43 Dose: 75 mg Cyclobenzaprine HCl (Flexeril) 10 mg PO Q8H PRN PRN Reason: muscle spasms Last Admin: 11/06/17 00:58 Dose: 10 mg Furosemide (Lasix) 40 mg PO DAILY [facility] Last Admin: 11/06/17 08:28 Dose: 40 mg Sodium Chloride (Ns Inj) 1,000 mls @ 0 mls/hr IV.SIG BOLUS [facility] Last Infusion: 11/01/17 22:34 Dose: Infused Sodium Chloride (Ns Inj) 1,000 mls @ 100 mls/hr IV.CONT .Q10H [facility] Last Admin: 11/06/17 08:30 Dose: Not Given Cefazolin Sodium 2,000 mg/ (Sodium Chloride) 100 mls @ 200 mls/hr IV.SIG Q8H [facility] Last Infusion: 11/06/17 08:56 Dose: Infused Pharmacy Profile Note (Gentamicin Consult Pharmacy) 0 mls @ 0 mls/hr OTHER [facility] Gentamicin Sulfate 450 mg/ (Sodium Chloride) 111.25 mls @ 100 mls/hr IV.SIG Q24H [facility] Last Admin: 11/06/17 12:12 Dose: 100 mls/hr Sodium Chloride (Ns Inj) 1,000 mls @ 125 mls/hr IV.CONT .Q8H [facility] Last Infusion: 11/06/17 12:12 Dose: 0 mls/hr Lactulose (Lactulose Liq) 30 ml PO DAILY PRN PRN Reason: SEVERE CONSITIPATION Levothyroxine Sodium (Synthroid) 25 mcg PO DAILY@0600 [facility] Last Admin: 11/06/17 06:14 Dose: 25 mcg Lisinopril (Prinivil) 20 mg PO DAILY [facility] Last Admin: 11/06/17 08:27 Dose: 20 mg Metoprolol Succinate (Toprol Xl) 25 mg PO DAILY [facility] Last Admin: 11/06/17 08:28 Dose: 25 mg Morphine Sulfate (Morphine Inj) 2 mg IV.PUSH Q3H PRN PRN Reason: BREAKTHROUGH PAIN Last Admin: 11/01/17 01:45 Dose: 2 mg Ondansetron HCl (Zofran Inj) 4 mg IV.PUSH Q6H PRN PRN Reason: NAUSEA OR VOMITING Senna/Docusate Sodium ([place]-Colace) 1 tab PO BID [facility] Last Admin: 11/06/17 08:28 Dose: 1 tab Sennosides (Senokot) 17.2 mg PO Q12H PRN PRN Reason: Moderate Constipation Sodium Chloride (Ns Flush) 2 ml IV.FLUSH BID [facility] Last Admin: 11/06/17 08:28 Dose: Not Given Sodium Chloride (Ns Flush) 2 ml IV.FLUSH PRN PRN PRN Reason: FLUSH AFTER USING IV ACCESS Sodium Chloride (Ns Inj) 5 ml IRRIGATION DAILY [facility] Last Admin: 11/06/17 08:30 Dose: 5 ml Physical Exam Vital signs: Vital Signs 11/05/17 16:00 11/05/17 16:10 11/05/17 19:48 Temperature 98.0 F 98 F 98.3 F Pulse Rate 89 89 93 H Respiratory Rate 18 18 18 Blood Pressure 103/73 103/73 128/80 Pulse Oximetry 92 L 92 L 96 11/06/17 00:00 11/06/17 04:00 11/06/17 08:00 Temperature 98.2 F 98.6 F 98.1 F Pulse Rate 97 H 91 H 99 H Respiratory Rate 20 18 18 Blood Pressure 122/79 132/86 167/113 H Pulse Oximetry 95 93 L 97 11/06/17 12:00 Temperature 98.2 F Pulse Rate 97 H Respiratory Rate 18 Blood Pressure 133/92 H Pulse Oximetry 95 Intake & Output 11/05/17 11/06/17 11/06/17 18:59 06:59 18:59 Intake Total 4031.25 / 4031.25 340 / 340 1100 / 1100 Output Total 2100 / 2100 Balance 1931.25 / 1931.25 340 / 340 1100 / 1100 Intake: IV 3311.25 / 3311.25 100 / 100 1100 / 1100 NS Inj 1,000 ML @ 125 mls/hr IV 3000 / 3000 1000 / 1000 .CONT .Q8H [facility] Rx#:[id number] Gentamicin Inj 450 MG In NS Inj 111.25 / 111.25 100 ML @ 100 mls/hr IV.SIG Q24H [facility] Rx#:[id number] Ancef Inj 2,000 MG In NS Inj 80 200 / 200 100 / 100 100 / 100 ML @ 200 mls/hr IV.SIG Q8H [facility] Rx#:[id number] Oral 720 / 720 240 / 240 Output: Urine 2100 / 2100 Other: # Voids 3 Date of Last Bowel Movement 11/04/17 # Bowel Movements 0 Narrative: GENERAL: This is a well-nourished, well-developed patient, in no apparent distress. Patient speaks in clear complete sentences. Patient is pleasant. HEENT: Head is atraumatic and normocephalic. Neck is supple without lymphadenopathy and trachea is midline. No JVD or carotid bruits. CARDIOVASCULAR: Regular rate and rhythm without murmurs, gallops, or rubs. RESPIRATORY: Clear to auscultation. Breath sounds equal bilaterally. No wheezes , rales, or rhonchi. Chest wall is nontender. No use of accessory muscles. GASTROINTESTINAL: Abdomen is nontender, nondistended. Abdomen soft. No obvious pulsatile mass or bruit. No CVA tenderness. Strong femoral pulses bilaterally. Normal bowel sounds in all quadrants. Mild left lateral abdominal pain, drain in place. MUSCULOSKELETAL: Patient is moving upper and lower extremities freely. No calf tenderness or edema, no Homans sign. Strong pulses in upper and lower extremities. NEUROLOGICAL: Patient is alert and oriented. Cranial nerves 2-12 are grossly intact. No focal deficits and speech is clear. SKIN: No rash and turgor is normal. Results 11/05/17 05:10 11/06/17 06:59 CBC 11/05/17 Range/Units 05:10 WBC 8.6 (4.0-11.0) th/mm3 RBC 3.85 L (4.50-5.90) mil/mm3 Hgb 12.1 L (13.0-17.0) gm/dL Hct 35.7 L (39.0-51.0) % Plt Count 426 (150-450) th/mm3 Comprehensive Metabolic Panel 11/05/17 11/06/17 Range/Units 05:10 06:59 Sodium 138 135 L (136-145) meq/L Potassium 3.9 4.0 (3.5-5.1) meq/L Chloride 100 100 (98-107) meq/L Carbon Dioxide 29.6 29.5 (21.0-32.0) meq/L BUN 12 10 (7-18) mg/dL Creatinine 1.03 0.95 (0.60-1.30) mg/dL Calcium 8.6 9.0 (8.5-10.1) mg/dL Intake and Output 11/05/17 11/06/17 11/06/17 22:59 06:59 14:59 Intake Total 1931.25 / 1931.25 340 / 340 1100 / 1100 Output Total 2099 / 2099 Balance -168.75 / -168.75 340 / 340 1100 / 1100 Intake: IV 1211.25 / 1211.25 100 / 100 1100 / 1100 NS Inj 1,000 ML @ 125 mls/hr IV 1000 / 1000 1000 / 1000 .CONT .Q8H [facility] Rx#:[id number] Gentamicin Inj 450 MG In NS Inj 111.25 / 111.25 100 ML @ 100 mls/hr IV.SIG Q24H [facility] Rx#:[id number] Ancef Inj 2,000 MG In NS Inj 80 100 / 100 100 / 100 100 / 100 ML @ 200 mls/hr IV.SIG Q8H [facility] Rx#:[id number] Oral 720 / 720 240 / 240 Output: Urine 2100 / 2100 Other: # Voids 3 Date of Last Bowel Movement 11/04/17 # Bowel Movements 0 Assessment and Plan - Assessment (1) Bacteremia due to Staphylococcus aureus Code(s): R78.81 - Bacteremia Status: Acute (2) Bacteremia Code(s): R78.81 - Bacteremia Status: Acute (3) Psoas abscess, left Code(s): K68.12 - Psoas muscle abscess Status: Acute (4) Calculus, renal Code(s): N20.0 - Calculus of kidney Status: Acute (5) Acute flank pain Code(s): R10.9 - Unspecified abdominal pain Status: Acute (6) Intractable pain Code(s): R52 - Pain, unspecified Status: Acute (7) Hypokalemia Code(s): E87.6 - Hypokalemia Status: Acute - Plan Patient continues to remains stable from a cardiac standpoint, no new cardiac issues noted. RACHEL done on 10-28-17 and showed no evidence of valvular vegetation, no evidence of pacemaker lead vegetation, preserved left ventricular systolic function, trace mitral valve regurgitation and mild tricuspid valve regurgitation. Continue with current antibiotic treatment per infectious disease. Drain in the left psoas muscle, drainage amount has greatly decreased. Continue to increase activity as patient tolerates. Anticipate discharge soon. The patient was seen and evaluated by Dr. Araujo who participated in care, management and decision making. - Attending Attestation Patient seen and examined. I reviewed and agree with the evaluation and plan as presented. Remains stable from cardiac standpoint. Anticipate discharge soon.
--- NOTE | 2017-11-06 14:45 | P.PNIM ---
Subjective Interval history: Patient reports he is feeling ok. Pain is controlled. Physical Exam Vital signs: Vital Signs 11/05/17 16:00 11/05/17 16:10 11/05/17 19:48 Temperature 98.0 F 98 F 98.3 F Pulse Rate 89 89 93 H Respiratory Rate 18 18 18 Blood Pressure 103/73 103/73 128/80 Pulse Oximetry 92 L 92 L 96 11/06/17 00:00 11/06/17 04:00 11/06/17 08:00 Temperature 98.2 F 98.6 F 98.1 F Pulse Rate 97 H 91 H 99 H Respiratory Rate 20 18 18 Blood Pressure 122/79 132/86 167/113 H Pulse Oximetry 95 93 L 97 11/06/17 12:00 Temperature 98.2 F Pulse Rate 97 H Respiratory Rate 18 Blood Pressure 133/92 H Pulse Oximetry 95 Intake & Output 11/05/17 11/06/17 11/06/17 18:59 06:59 18:59 Intake Total 4031.25 / 4031.25 340 / 340 1100 / 1100 Output Total 2100 / 2100 Balance 1931.25 / 1931.25 340 / 340 1100 / 1100 Intake: IV 3311.25 / 3311.25 100 / 100 1100 / 1100 NS Inj 1,000 ML @ 125 mls/hr IV 3000 / 3000 1000 / 1000 .CONT .Q8H [facility] Rx#:[id number] Gentamicin Inj 450 MG In NS Inj 111.25 / 111.25 100 ML @ 100 mls/hr IV.SIG Q24H [facility] Rx#:[id number] Ancef Inj 2,000 MG In NS Inj 80 200 / 200 100 / 100 100 / 100 ML @ 200 mls/hr IV.SIG Q8H [facility] Rx#:[id number] Oral 720 / 720 240 / 240 Output: Urine 2100 / 2100 Other: # Voids 3 Date of Last Bowel Movement 11/04/17 # Bowel Movements 0 Narrative: GENERAL: This is a well-nourished, well-developed patient, in no apparent distress. CARDIOVASCULAR: Normal rate and regular rhythm without murmurs, gallops, or rubs. RESPIRATORY: Good respiratory efforts. Breath sounds equal and clear to auscultation bilaterally. GASTROINTESTINAL: Abdomen soft, non-tender, non-distended. Normal active bowel sounds MUSCULOSKELETAL: Drain in place on the left flank minimal draining serosanguineous fluid. NEURO: Alert & Oriented x4 to person, place, time, situation. Moves all ext x4 PSYCH: Appropriate mood and affect. Results - Labs CBC & Chem 7: 11/05/17 05:10 11/06/17 06:59 Laboratory Results - last 24 hr 11/06/17 11/06/17 06:59 10:20 Sodium 135 L Potassium 4.0 Chloride 100 Carbon Dioxide 29.5 Anion Gap 6 BUN 10 Creatinine 0.95 Estimated GFR 80 L Random Glucose 90 Calcium 9.0 Gentamicin Trough 0.7 Microbiology 11/03/17 15:55 Abscess - Other Gram Stain - Final 11/03/17 15:55 Abscess - Other Wound Culture - Final Staphylococcus aureus 11/03/17 06:00 Blood - Peripheral Aerobic Blood Culture - Preliminary No growth in 3 days 11/03/17 06:00 Blood - Peripheral Anaerobic Blood Culture - Preliminary No growth in 3 days 11/02/17 06:48 Blood - Peripheral Aerobic Blood Culture - Preliminary No growth in 4 days 11/02/17 06:48 Blood - Peripheral Anaerobic Blood Culture - Preliminary No growth in 4 days 11/03/17 15:55 Abscess - Other Acid Fast Bacilli Smear - Final No acid fast bacilli seen 10/31/17 06:15 Blood - Peripheral Aerobic Blood Culture - Final Staphylococcus aureus 10/31/17 06:15 Blood - Peripheral Anaerobic Blood Culture - Final No growth in 5 days - Procedures 10/28/17- RACHEL Assessment and Plan - Assessment (1) Psoas abscess, left Code(s): K68.12 - Psoas muscle abscess Status: Acute (2) Intractable pain Code(s): R52 - Pain, unspecified Status: Acute (3) Hypokalemia Code(s): E87.6 - Hypokalemia Status: Acute (4) Bacteremia due to Staphylococcus aureus Code(s): R78.81 - Bacteremia Status: Acute - Plan 62-year-old male with a past medical history of coronary artery disease, status post CABG 5, status post pacemaker placement, and dyslipidemia. The patient presented to the emergency department 3 days of left-sided flank pain. He initially thought he had pulled a muscle while doing yard work. The patient's symptoms were getting worse and he came into our emergency department for evaluation. 1. MSSA bacteremia with left psoas abscess. CT scan of the abdomen and pelvis shows a left psoas muscle with findings consistent with a psoas abscess. Blood cultures are positive for staph aureus. Repeat blood cultures are still positive. A repeat CT scan of the abdomen and pelvis shows growing size of the abscess. The surgical team is recommending interventional radiology to drain the abscess. A RACHEL was also done which did not show any valvular vegetations or vegetations on the pacemaker lead. He will be continued on IV Ancef and gentamicin as per infectious disease recommendations. -Status post drainage by IR. Drain is currently in place. Follow output. - Continue IV Antibiotics. He will need 6 weeks of IV antibiotics per ID. -Fluid cultures grew MSSA. - Drain output minimal. MARCI RN to alert IR 2. Coronary artery disease status post CABG/dyslipidemia Continue current medications. Plavix was held for drainage of the abscess. Resume Plavix.
[2017-11-07] MEDS: Sod Chloride 0.9% Inj 1,000 ML IV.CONT SCH ×4 (02:23→16:31)
[2017-11-07] MEDS: ceFAZolin Inj 2,000 MG in Sodium Chlor 0.9% Inj 80 ML IV.SIG SCH ×4 (05:28→21:20)
[2017-11-07] MEDS: Morphine Sulfate Inj 2 MG/ML Vial IV.PUSH PRN ×2 (05:29→23:21)
[2017-11-07] MEDS: Senna/Docusate Sodium 8.6/50 MG Tablet PO SCH ×2 (08:28→21:20)
[2017-11-07] MEDS: Lisinopril 20 MG Tablet PO SCH (08:28)
[2017-11-07] MEDS: Furosemide 40 MG Tablet PO SCH (08:29)
[2017-11-07] MEDS: Amiodarone 200 MG Tablet PO SCH (08:40)
[2017-11-07] MEDS: SODIUM CHLOR 0.9% IV.SIG SCH (12:21)
[2017-11-07] MEDS: GENTAMICIN IV.SIG SCH (12:21)
--- NOTE | 2017-11-07 13:44 | P.PNID ---
Subjective Remarks: Patient is a 62-year-old male, presented to the hospital complaining of 4-5 day history of left-sided flank pain. He was apparently working in the yard, pulling weeds and he was doing this for 2 days. About 4 days prior to admission he started experiencing left-sided flank, side pain and the pain was quite severe that he was not able to do much. He denies any fever chills or sweats. He has not had any nausea or vomiting. He has not had any problem with his bowels. He has been voiding without any problem. Patient has not had any treatment for any infection in the last several months. On presentation he has had some low-grade temps. His WBC is normal. CT of the abdomen and pelvis showing asymmetry in his psoas muscle with the left being big and there are some foci of gas. There is no other abnormality seen. Blood cultures done on admission are now reported as growing gram-positive cocci in clusters. His urinalysis is unremarkable. Patient has known coronary artery disease and had undergone CABG in 2016. He stated that his pacemaker was placed about a year before his CABG. This was done in [place]. Patient has not had any follow-up with any area counselor. Infectious disease consultation has been requested to evaluate the patient with positive blood culture. Patient still complaining of significant pain in the left flank. Notes reviewed Afebrile Pain is better Has drain to the L psoas - output is bloody and not a lot C/S of fluid Staph aureus last (+) BC 10/[address] noted All BC (+) MSSA - last +BC 10/31 WBC normal now Creatinine slowly creeping up Antibiotics: Ancef Lines: PIV Past Medical History: Coronary artery disease High cholesterol Pacemaker Hx of CABG Allergies/Adverse Reactions: Allergies No Known Allergies Allergy (Unverified 10/25/17 22:42) Objective Vital Signs 11/06/17 16:00 11/06/17 20:00 11/07/17 00:00 Temperature 98 F 98.2 F 97.8 F Pulse Rate 95 H 95 H 99 H Respiratory Rate 18 18 18 Blood Pressure 111/94 H 140/96 H 154/101 H Pulse Oximetry 95 96 94 L 11/07/17 04:00 11/07/17 08:00 11/07/17 12:00 Temperature 97.7 F 97.9 F 97.7 F Pulse Rate 98 H 89 96 H Respiratory Rate 18 Blood Pressure 158/105 H 140/90 100/63 Pulse Oximetry 95 95 93 L Intake & Output 11/06/17 11/07/17 11/07/17 18:59 06:59 18:59 Intake Total 2031.25 / 2031.25 2200 / 2200 211.25 / 211.25 Output Total 2510 / 2510 1255 / 1255 Balance -478.75 / -478.75 945 / 945 211.25 / 211.25 Intake: IV 1311.25 / 1311.25 2200 / 2200 211.25 / 211.25 NS Inj 1,000 ML @ 125 mls/hr IV 1000 / 1000 1999 / 1999 .CONT .Q8H [facility] Rx#:[id number] Gentamicin Inj 450 MG In NS Inj 111.25 / 111.25 111.25 / 111.25 100 ML @ 100 mls/hr IV.SIG Q24H [facility] Rx#:[id number] Ancef Inj 2,000 MG In NS Inj 80 200 / 200 200 / 200 100 / 100 ML @ 200 mls/hr IV.SIG Q6H [facility] Rx#:[id number] Oral 720 / 720 Output: Urine 2500 / 2500 1250 / 1250 Wound Drainage 5 / 5 Left Lateral Back 5 5 Other: # Bowel Movements 0 11/03/17 06:00 Blood - Peripheral Aerobic Blood Culture - Preliminary No growth in 4 days 11/03/17 06:00 Blood - Peripheral Anaerobic Blood Culture - Preliminary No growth in 4 days 11/02/17 06:48 Blood - Peripheral Aerobic Blood Culture - Final No growth in 5 days 11/02/17 06:48 Blood - Peripheral Anaerobic Blood Culture - Final No growth in 5 days 11/03/17 15:55 Abscess - Other Gram Stain - Final 11/03/17 15:55 Abscess - Other Wound Culture - Final Staphylococcus aureus 11/03/17 15:55 Abscess - Other Acid Fast Bacilli Smear - Final No acid fast bacilli seen 11/03/17 15:55 Abscess - Other Mycobacterial Culture - Pending 10/31/17 06:15 Blood - Peripheral Aerobic Blood Culture - Final Staphylococcus aureus 10/31/17 06:15 Blood - Peripheral Anaerobic Blood Culture - Final No growth in 5 days 11/03/17 15:55 Abscess - Other Fungal Smear - Final No fungal elements seen 11/03/17 15:55 Abscess - Other Fungal Culture - Pending 10/30/17 14:05 Blood - Peripheral Aerobic Blood Culture - Final No growth in 5 days 10/30/17 14:05 Blood - Peripheral Anaerobic Blood Culture - Final No growth in 5 days Lab - Chemistry Results 11/06/17 11/07/17 06:59 06:13 Sodium 135 L Potassium 4.0 Chloride 100 Carbon Dioxide 29.5 Anion Gap 6 BUN 10 Creatinine 0.95 1.03 Estimated GFR 80 L 73 L Random Glucose 90 Calcium 9.0 Imaging: ITS Impressions CT Consultation 10/28/17 00:00 CONCLUSION: 1. A few dots of air identified in the enlarged left psoas with no obvious drainable fluid collection. Findings may represent an inflammatory phlegmon which could develop into an abscess over the next few days. 2. In addition, the patient was on Plavix therapy. His last dose was administered yesterday. This will have to be held for at least 3 days prior to any intervention. 3. Discussed with Dr. Demarco from infectious disease at the time of this dictation. Abdomen/Pelvis CT 10/29/17 00:00 CONCLUSION: 1. Again a large hypodense area in the left psoas muscle with tiny locules of air, increased from the previous study presumably infection or infected hematoma. 2. Bilateral inguinal hernias right greater than left containing fat Lumbar Spine CT 11/02/17 00:00 CONCLUSION: 1. Left iliac artery aneurysm. 2. Degenerative changes and scoliosis. 3. Left psoas abscess identified extending 11 cm in cephalocaudal dimension. 4. Bilateral hydroureter. Abscess Drainage CT 11/03/17 00:00 CONCLUSION: 1. Uncomplicated CT guided drainage. Chest X-Ray 11/03/17 17:14 CONCLUSION: There is a tortuous aorta. Lungs are clear. I don't see any evidence of a pneumothorax on the left side. Physical Exam: GENERAL: awake and alert, NAD SKIN: Warm and dry. No generalized rash EYES: [place] conjunctiva. No petechia or hemorrhage. No scleral icterus. No injection or drainage. EARS, NOSE AND THROAT: Nose without bleeding or purulent nasal discharge. No sinus tenderness. Mucous membranes pink and moist. No oral lesions noted. NECK: Trachea midline. Supple and not tender, no meningeal signs CARDIOVASCULAR: Regular rate and rhythm. No murmurs, rubs or gallops heard. Pacemaker in L upper chest with no evidence of infection RESPIRATORY: Clear to auscultation. Breath sounds equal bilaterally. No rales , wheezing or rhonchi ABDOMEN: Soft, globular, nondistended, with mild tenderness in LLQ. Drain in bloody - min bloody fluid. Bowel sounds present and normoactive. No guarding. No rebound. No organomegaly. EXTREMITIES: No clubbing, cyanosis, or edema. No calf tenderness. NEUROLOGICAL: Grossly non-focal. PSYCHIATRIC: Normal affect, calm and cooperative. LINE: No evidence of infection Assessment and Plan - Plan Impression Staph aureus sepsis, worrisome foe endovascular focus, IE, pacer L psoas fluid collection likely abscess, hematogenous spread S/P CABG 2015 S/P Pacemaker 2014 Recommendation Repeat BC to document clearing Continue IV Ancef Stop Gentamicin Follow C/S and adjust Abx Monitor progress Possibly repeat CT A/P Friday I will be off this weekend. Dr Martinez available if needed
--- NOTE | 2017-11-07 15:22 | P.PNIM ---
Subjective Interval history: Patient reports he is feeling okay today. Pain is controlled. Afebrile. Physical Exam Vital signs: Vital Signs 11/06/17 16:00 11/06/17 20:00 11/07/17 00:00 Temperature 98 F 98.2 F 97.8 F Pulse Rate 95 H 95 H 99 H Respiratory Rate 18 Blood Pressure 111/94 H 140/96 H 154/101 H Pulse Oximetry 95 96 94 L 11/07/17 04:00 11/07/17 08:00 11/07/17 12:00 Temperature 97.7 F 97.9 F 97.7 F Pulse Rate 98 H 89 96 H Respiratory Rate 18 18 18 Blood Pressure 158/105 H 140/90 100/63 Pulse Oximetry 95 95 93 L Intake & Output 11/06/17 11/07/17 11/07/17 18:59 06:59 18:59 Intake Total 2031.25 / 2031.25 2200 / 2200 211.25 / 211.25 Output Total 2510 / 2510 1255 / 1255 Balance -478.75 / -478.75 945 / 945 211.25 / 211.25 Intake: IV 1311.25 / 1311.25 2200 / 2200 211.25 / 211.25 NS Inj 1,000 ML @ 125 mls/hr IV 1000 / 1000 1999 / 1999 .CONT .Q8H ROXY Rx#:[id number] Gentamicin Inj 450 MG In NS Inj 111.25 / 111.25 111.25 / 111.25 100 ML @ 100 mls/hr IV.SIG Q24H ROXY Rx#:[id number] Ancef Inj 2,000 MG In NS Inj 80 200 / 200 200 / 200 100 / 100 ML @ 200 mls/hr IV.SIG Q6H ROXY Rx#:[id number] Oral 720 / 720 Output: Urine 2500 / 2500 1250 / 1250 Wound Drainage 5 / 5 Left Lateral Back 5 / 5 Other: # Bowel Movements 0 Narrative: GENERAL: This is a well-nourished, well-developed patient, in no apparent distress. CARDIOVASCULAR: Normal rate and regular rhythm without murmurs, gallops, or rubs. RESPIRATORY: Good respiratory efforts. Breath sounds equal and clear to auscultation bilaterally. GASTROINTESTINAL: Abdomen soft, non-tender, non-distended. Normal active bowel sounds MUSCULOSKELETAL: Drain in place on the left flank minimal draining serosanguineous fluid. NEURO: Alert & Oriented x4 to person, place, time, situation. Moves all ext x4 PSYCH: Appropriate mood and affect. Results - Labs CBC & Chem 7: 11/05/17 05:10 11/07/17 06:13 Laboratory Results - last 24 hr 11/07/17 06:13 Creatinine 1.03 Estimated GFR 73 L Microbiology 11/03/17 06:00 Blood - Peripheral Aerobic Blood Culture - Preliminary No growth in 4 days 11/03/17 06:00 Blood - Peripheral Anaerobic Blood Culture - Preliminary No growth in 4 days 11/02/17 06:48 Blood - Peripheral Aerobic Blood Culture - Final No growth in 5 days 11/02/17 06:48 Blood - Peripheral Anaerobic Blood Culture - Final No growth in 5 days - Procedures 10/28/17- RACHEL Assessment and Plan - Assessment (1) Psoas abscess, left Code(s): K68.12 - Psoas muscle abscess Status: Acute (2) Intractable pain Code(s): R52 - Pain, unspecified Status: Acute (3) Hypokalemia Code(s): E87.6 - Hypokalemia Status: Acute (4) Bacteremia due to Staphylococcus aureus Code(s): R78.81 - Bacteremia Status: Acute - Plan 62-year-old male with a past medical history of coronary artery disease, status post CABG 5, status post pacemaker placement, and dyslipidemia. The patient presented to the emergency department 3 days of left-sided flank pain. He initially thought he had pulled a muscle while doing yard work. The patient's symptoms were getting worse and he came into our emergency department for evaluation. 1. MSSA bacteremia with left psoas abscess. CT scan of the abdomen and pelvis shows a left psoas muscle with findings consistent with a psoas abscess. Blood cultures are positive for staph aureus. Repeat blood cultures are still positive. A repeat CT scan of the abdomen and pelvis shows growing size of the abscess. The surgical team is recommending interventional radiology to drain the abscess. A RACHEL was also done which did not show any valvular vegetations or vegetations on the pacemaker lead. He will be continued on IV Ancef and gentamicin as per infectious disease recommendations. -Status post drainage by IR. Drain is currently in place. Follow output. - Continue IV Antibiotics. He will need 6 weeks of IV antibiotics per ID. -Fluid cultures grew MSSA. - Drain output decreased. IR aware. They will reevaluate the drain today. 2. Coronary artery disease status post CABG/dyslipidemia Continue current medications. Plavix was held for drainage of the abscess. Resume Plavix.
--- NOTE | 2017-11-07 15:50 | P.PNCA ---
Subjective Interval history: Patient denies any chest pain, pressure, palpitations, edema, dizziness, diaphoresis or shortness of breath. Patient states that he is feeling a lot better and is waiting for them to take the drain out and would like to go home. Medications and Allergies Allergies Allergy/AdvReac Type Severity Reaction Status Date / Time No Known Allergies Allergy Unverified 10/25/17 22:42 Home Medications Medication Instructions Recorded Confirmed Type amiodarone 200 mg PO DAILY 10/26/17 10/26/17 History atorvastatin 40 mg PO DAILY 10/26/17 10/26/17 History clopidogrel 75 mg PO DAILY 10/26/17 10/26/17 History furosemide 40 mg PO DAILY 10/26/17 10/26/17 History levothyroxine 25 mcg PO DAILY 10/26/17 10/26/17 History meloxicam 7.5 mg PO BID 10/26/17 10/26/17 History metoprolol succinate 25 mg PO DAILY 10/26/17 10/26/17 History Active Medications: Active Medications Acetaminophen (Tylenol) 650 mg PO Q4H PRN PRN Reason: Temp > 100.4/LAURA Hydrocodone Bitart/Acetaminophen (Pauline 5/325) 1 tab PO Q6H PRN PRN Reason: pain scale 3-6 Last Admin: 11/03/17 18:46 Dose: 1 tab Hydrocodone Bitart/Acetaminophen (Pauline 7.5/325) 1 tab PO Q6H PRN PRN Reason: pain scale 7-10 Last Admin: 11/07/17 08:30 Dose: 1 tab Al Hydroxide/Mg Hydroxide (Milk Of Magnmohsen Liq) 30 ml PO Q12H PRN PRN Reason: Mild Constipation Last Admin: 11/06/17 20:27 Dose: 30 ml Amiodarone HCl (Cordarone) 200 mg PO DAILY [facility] Last Admin: 11/07/17 08:40 Dose: 200 mg Atorvastatin Calcium (Lipitor) 40 mg PO DAILY [facility] Last Admin: 11/07/17 08:29 Dose: 40 mg Bisacodyl (Dulcolax Supp) 10 mg RECTAL DAILY PRN PRN Reason: SEVERE CONSITIPATION Clopidogrel Bisulfate (Plavix) 75 mg PO DAILY [facility] Last Admin: 11/07/17 08:29 Dose: 75 mg Cyclobenzaprine HCl (Flexeril) 10 mg PO Q8H PRN PRN Reason: muscle spasms Last Admin: 11/07/17 08:30 Dose: 10 mg Furosemide (Lasix) 40 mg PO DAILY [facility] Last Admin: 11/07/17 08:29 Dose: 40 mg Sodium Chloride (Ns Inj) 1,000 mls @ 0 mls/hr IV.SIG BOLUS [facility] Last Infusion: 11/01/17 22:34 Dose: Infused Sodium Chloride (Ns Inj) 1,000 mls @ 125 mls/hr IV.CONT .Q8H [facility] Last Infusion: 11/07/17 13:28 Dose: 125 mls/hr Cefazolin Sodium 2,000 mg/ (Sodium Chloride) 100 mls @ 200 mls/hr IV.SIG Q6H [facility] Last Infusion: 11/07/17 09:57 Dose: Infused Lactulose (Lactulose Liq) 30 ml PO DAILY PRN PRN Reason: SEVERE CONSITIPATION Levothyroxine Sodium (Synthroid) 25 mcg PO DAILY@0600 [facility] Last Admin: 11/07/17 05:30 Dose: 25 mcg Lisinopril (Prinivil) 20 mg PO DAILY [facility] Last Admin: 11/07/17 08:28 Dose: 20 mg Meloxicam (Mobic) 7.5 mg PO BID [facility] Metoprolol Succinate (Toprol Xl) 25 mg PO DAILY [facility] Last Admin: 11/07/17 08:29 Dose: 25 mg Morphine Sulfate (Morphine Inj) 2 mg IV.PUSH Q3H PRN PRN Reason: BREAKTHROUGH PAIN Last Admin: 11/07/17 05:29 Dose: 2 mg Ondansetron HCl (Zofran Inj) 4 mg IV.PUSH Q6H PRN PRN Reason: NAUSEA OR VOMITING Senna/Docusate Sodium (Ana Paula-Colace) 1 tab PO BID [facility] Last Admin: 11/07/17 08:28 Dose: 1 tab Sennosides (Senokot) 17.2 mg PO Q12H PRN PRN Reason: Moderate Constipation Sodium Chloride (Ns Flush) 2 ml IV.FLUSH BID [facility] Last Admin: 11/07/17 09:29 Dose: Not Given Sodium Chloride (Ns Flush) 2 ml IV.FLUSH PRN PRN PRN Reason: FLUSH AFTER USING IV ACCESS Sodium Chloride (Ns Inj) 5 ml IRRIGATION DAILY [facility] Last Admin: 09/28/18 08:32 Dose: 5 ml Physical Exam Vital signs: Vital Signs 11/06/17 16:00 11/06/17 20:00 11/07/17 00:00 Temperature 98 F 98.2 F 97.8 F Pulse Rate 95 H 95 H 99 H Respiratory Rate 18 Blood Pressure 111/94 H 140/96 H 154/101 H Pulse Oximetry 95 96 94 L 11/07/17 04:00 11/07/17 08:00 11/07/17 12:00 Temperature 97.7 F 97.9 F 97.7 F Pulse Rate 98 H 89 96 H Respiratory Rate 18 Blood Pressure 158/105 H 140/90 100/63 Pulse Oximetry 95 95 93 L Intake & Output 11/06/17 11/07/17 11/07/17 18:59 06:59 18:59 Intake Total 2031.25 / 2031.25 2200 / 2200 211.25 / 211.25 Output Total 2510 / 2510 1255 / 1255 Balance -478.75 / -478.75 945 / 945 211.25 / 211.25 Intake: IV 1311.25 / 1311.25 2200 / 2200 211.25 / 211.25 NS Inj 1,000 ML @ 125 mls/hr IV 1000 / 1000 2000 / 2000 .CONT .Q8H ROXY Rx#:[id number] Gentamicin Inj 450 MG In NS Inj 111.25 / 111.25 111.25 / 111.25 100 ML @ 100 mls/hr IV.SIG Q24H ROXY Rx#:[id number] Ancef Inj 2,000 MG In NS Inj 80 200 / 200 200 / 200 100 / 100 ML @ 200 mls/hr IV.SIG Q6H ROXY Rx#:[id number] Oral 720 / 720 Output: Urine 2500 / 2500 1250 / 1250 Wound Drainage 10 / 10 5 / 5 Left Lateral Back 10 / 10 5 / 5 Other: # Bowel Movements 0 - Constitutional no acute distress - Routine HEENT Exam Head: Present: normocephalic Eye: Present: PERRL ENT: Present: mucous membranes moist - Routine Neck Exam Present: full ROM - Routine Respiratory Exam Present: CTA bilaterally - Routine Cardiovascular Exam Present: S1, S2. Absent: murmur, gallop, rubs, irregular rhythm - Routine Abdominal Exam Present: normoactive bowel sounds Comments: Drain to the lower left lateral abdomen - Routine Extremities Exam Present: full ROM, pulses intact, normal capillary refill. Absent: cyanosis, clubbing, edema - Routine Skin Exam Present: intact - Routine Neurological Exam Present: oriented X3 - Detailed Neurological Exam: Coma Scale Eye Opening: Spontaneous Verbal Response: Oriented Motor Response: Obey commands [place] Coma Scale Total: 15 - Routine Psychiatric Exam Present: normal affect Results 11/05/17 05:10 11/07/17 06:13 Comprehensive Metabolic Panel 11/06/17 11/07/17 Range/Units 06:59 06:13 Sodium 135 L (136-145) meq/L Potassium 4.0 (3.5-5.1) meq/L Chloride 100 (98-107) meq/L Carbon Dioxide 29.5 (21.0-32.0) meq/L BUN 10 (7-18) mg/dL Creatinine 0.95 1.03 (0.60-1.30) mg/dL Calcium 9.0 (8.5-10.1) mg/dL Intake and Output 11/07/17 11/07/17 11/07/17 06:59 14:59 22:59 Intake Total 1100 / 1100 211.25 / 211.25 Output Total 1255 / 1255 Balance -155 / -155 211.25 / 211.25 Intake: IV 1100 / 1100 211.25 / 211.25 NS Inj 1,000 ML @ 125 mls/hr IV 1000 / 1000 .CONT .Q8H ROXY Rx#:[id number] Gentamicin Inj 450 MG In NS Inj 111.25 / 111.25 100 ML @ 100 mls/hr IV.SIG Q24H ROXY Rx#:[id number] Ancef Inj 2,000 MG In NS Inj 80 100 / 100 100 / 100 ML @ 200 mls/hr IV.SIG Q6H ROXY Rx#:[id number] Output: Urine 1250 / 1250 Wound Drainage 5 / 5 Left Lateral Back 5 / 5 Assessment and Plan - Assessment (1) Bacteremia due to Staphylococcus aureus Code(s): R78.81 - Bacteremia Status: Acute (2) Bacteremia Code(s): R78.81 - Bacteremia Status: Acute (3) Psoas abscess, left Code(s): K68.12 - Psoas muscle abscess Status: Acute (4) Calculus, renal Code(s): N20.0 - Calculus of kidney Status: Acute (5) Acute flank pain Code(s): R10.9 - Unspecified abdominal pain Status: Acute (6) Intractable pain Code(s): R52 - Pain, unspecified Status: Acute (7) Hypokalemia Code(s): E87.6 - Hypokalemia Status: Acute - Plan No new cardiac issues, patient remains stable from cardiac standpoint. Continue with current antibiotic treatment per infectious disease. Drain in the left psoas muscle, drainage amount has greatly decreased. Continue to increase activity as patient tolerates. Anticipate discharge soon. Will sign off. The patient was seen and evaluated by Dr. Araujo who participated in care, management and decision making. - Attending Attestation Patient seen and examined. I reviewed and agree with the evaluation and plan as presented. Continue current program. No new cardiac issues. Will sign off.
--- NOTE | 2017-11-07 17:07 | CT ---
EXAM DATE: 11/07/2017 4:30 PM EDT AGE/SEX: 62 years / Male INDICATIONS: Evaluate abscess drain CLINICAL DATA: This is the patient's subsequent encounter. Patient reports that signs and symptoms h ave been present for 4 - 6 days and indicates a pain score of 5/10. MEDICAL/SURGICAL HISTORY: Renal calculi. CABG. RADIATION DOSE: 15.39 CTDI (mGy) COMPARISON: [facility] [place], CT ABDOMEN & PELVIS W/O CONTRAST, 10/29/2017. . TECHNIQUE: Multiple contiguous axial images were obtained through the pelvis without contrast. Imag es were obtained using multiple row detector helical technique. . Using automated exposure control an d adjustment of the mA and/or kV according to patient size, radiation dose was kept as low as reasona jaison achievable to obtain optimal diagnostic quality images. DICOM format image data is available gui ctronically for review and comparison. FINDINGS: Bowel/Mesentery: The visualized small and large bowel demonstrate no acute abnormality. Bladder: No wall thickening or mass. The right aspect of the urinary bladder extends into the right inguinal canal into a hernia. Retroperitoneum: No lymphadenopathy is identified. There is moderate to severe atherosclerotic disea se. Stable aneurysm of the left common iliac artery is identified measuring 2.9 cm. Reproductive Organs: Prostate gland demonstrates no significant abnormality. Inguinal: There is a small fat-containing left inguinal hernia. There is a large right inguinal rahul ia containing urinary bladder and fat. It extends into the right hemiscrotum and is incompletely imag ed on this examination. Bony Structures: No acute osseous abnormality is identified. There is degenerative disc disease at L 4-L5. Other: There is a percutaneous pigtail catheter looped in the left psoas muscle at the L5 level. Ther e is no surrounding fluid collection or air identified. CONCLUSION: 1. Left percutaneous catheter is looped in the left psoas muscle. There is no residual fluid or air seen within the left psoas muscle or around the catheter. Consider catheter removal. 2. Large right inguinal hernia containing fat and the urinary bladder. This represents a change from the prior study in that the hernia previously did not contain the urinary bladder. 3. Stable left common iliac artery aneurysm measuring 2.9 cm. Electronically signed by: Garcia Valero MD 11/07/2017 5:05 PM EDT
[2017-11-07] MEDS: Meloxicam 7.5 MG Tablet PO SCH (21:20)
[2017-11-08] MEDS: ceFAZolin Inj 2,000 MG in Sodium Chlor 0.9% Inj 80 ML IV.SIG SCH ×4 (04:11→21:25)
[2017-11-08] MEDS: Sod Chloride 0.9% Inj 1,000 ML IV.CONT SCH ×5 (04:11→20:11)
[2017-11-08] MEDS: Lisinopril 20 MG Tablet PO SCH (09:34)
[2017-11-08] MEDS: Amiodarone 200 MG Tablet PO SCH (09:35)
[2017-11-08] MEDS: Furosemide 40 MG Tablet PO SCH (09:35)
[2017-11-08] MEDS: Meloxicam 7.5 MG Tablet PO SCH ×2 (09:35→20:12)
[2017-11-08] MEDS: Senna/Docusate Sodium 8.6/50 MG Tablet PO SCH ×2 (09:35→20:12)
--- NOTE | 2017-11-08 14:17 | P.PNIM ---
Subjective Interval history: Patient reports he is feeling ok. States he has been ambulating well. Drain is out. Physical Exam Vital signs: Vital Signs 11/07/17 16:00 11/07/17 20:00 11/08/17 00:00 Temperature 98.0 F 98.0 F 98.7 F Pulse Rate 97 H 98 H 93 H Respiratory Rate 18 18 18 Blood Pressure 116/75 115/80 152/94 H Pulse Oximetry 97 94 L 95 11/08/17 04:00 11/08/17 08:00 11/08/17 12:00 Temperature 97.9 F 98.2 F 97.3 F L Pulse Rate 104 H 101 H 94 H Respiratory Rate 18 20 20 Blood Pressure 138/88 120/84 123/68 Pulse Oximetry 93 L 93 L 95 Intake & Output 11/07/17 11/08/17 11/08/17 18:59 06:59 18:59 Intake Total 811.25 / 811.25 1200 / 1200 1100 / 1100 Output Total 1200 / 1200 Balance -388.75 / -388.75 1200 / 1200 1100 / 1100 Intake: IV 311.25 / 311.25 1200 / 1200 1100 / 1100 NS Inj 1,000 ML @ 125 mls/hr IV 1000 / 1000 1000 / 1000 .CONT .Q8H ROXY Rx#:[id number] Gentamicin Inj 450 MG In NS Inj 111.25 / 111.25 100 ML @ 100 mls/hr IV.SIG Q24H ROXY Rx#:[id number] Ancef Inj 2,000 MG In NS Inj 80 200 / 200 200 / 200 100 / 100 ML @ 200 mls/hr IV.SIG Q6H ROXY Rx#:[id number] Oral 500 / 500 Output: Urine 1200 / 1200 Wound Drainage 0 / 0 Left Lateral Back 0 / 0 Other: Date of Last Bowel Movement 11/07/17 11/07/17 Narrative: GENERAL: This is a well-nourished, well-developed patient, in no apparent distress. CARDIOVASCULAR: Normal rate and regular rhythm without murmurs, gallops, or rubs. RESPIRATORY: Good respiratory efforts. Breath sounds equal and clear to auscultation bilaterally. GASTROINTESTINAL: Abdomen soft, non-tender, non-distended. Normal active bowel sounds NEURO: Alert & Oriented x4 to person, place, time, situation. Moves all ext x4 PSYCH: Appropriate mood and affect. Results - Labs CBC & Chem 7: 11/05/17 05:10 11/07/17 06:13 Microbiology 11/03/17 06:00 Blood - Peripheral Aerobic Blood Culture - Final No growth in 5 days 11/03/17 06:00 Blood - Peripheral Anaerobic Blood Culture - Final No growth in 5 days 11/02/17 06:48 Blood - Peripheral Aerobic Blood Culture - Final No growth in 5 days 11/02/17 06:48 Blood - Peripheral Anaerobic Blood Culture - Final No growth in 5 days - Imaging Impressions Pelvis CT 11/07/17 16:26 CONCLUSION: 1. Left percutaneous catheter is looped in the left psoas muscle. There is no residual fluid or air seen within the left psoas muscle or around the catheter. Consider catheter removal. 2. Large right inguinal hernia containing fat and the urinary bladder. This represents a change from the prior study in that the hernia previously did not contain the urinary bladder. 3. Stable left common iliac artery aneurysm measuring 2.9 cm. - Procedures 10/28/17- RACHEL Assessment and Plan - Assessment (1) Psoas abscess, left Code(s): K68.12 - Psoas muscle abscess Status: Acute (2) Intractable pain Code(s): R52 - Pain, unspecified Status: Acute (3) Hypokalemia Code(s): E87.6 - Hypokalemia Status: Acute (4) Bacteremia due to Staphylococcus aureus Code(s): R78.81 - Bacteremia Status: Acute - Plan 62-year-old male with a past medical history of coronary artery disease, status post CABG 5, status post pacemaker placement, and dyslipidemia. The patient presented to the emergency department 3 days of left-sided flank pain. He initially thought he had pulled a muscle while doing yard work. The patient's symptoms were getting worse and he came into our emergency department for evaluation. 1. MSSA bacteremia with left psoas abscess. CT scan of the abdomen and pelvis shows a left psoas muscle with findings consistent with a psoas abscess. Blood cultures are positive for staph aureus. Repeat blood cultures are still positive. A repeat CT scan of the abdomen and pelvis shows growing size of the abscess. The surgical team is recommending interventional radiology to drain the abscess. A RACHEL was also done which did not show any valvular vegetations or vegetations on the pacemaker lead. He will be continued on IV Ancef and gentamicin as per infectious disease recommendations. -Status post drainage by IR. Drain is currently in place. Follow output. - Continue IV Antibiotics. He will need 6 weeks of IV antibiotics per ID. -Fluid cultures grew MSSA. - Drain output decreased. IR removed the drain. A repeat CT if the abdomen does not show any fluid. CT did show inguinal hernia containing bladder and fat. This can be followed outpatient for repair as he is currently asymptomatic. - Will discuss with ID regarding PICC and outpatient antibiotics. 2. Coronary artery disease status post CABG/dyslipidemia Continue current medications. Plavix was held for drainage of the abscess. Resume Plavix.
--- NOTE | 2017-11-08 18:54 | P.PNID ---
Subjective Remarks: ID weekend coverage. Notes reviewed. Asked to determine antibiotic for discharge. Patient is a 62-year-old male, presented to the hospital complaining of 4-5 day history of left-sided flank pain. He was apparently working in the yard, pulling weeds and he was doing this for 2 days. About 4 days prior to admission he started experiencing left-sided flank, side pain and the pain was quite severe that he was not able to do much. He denies any fever chills or sweats. He has not had any nausea or vomiting. He has not had any problem with his bowels. He has been voiding without any problem. Patient has not had any treatment for any infection in the last several months. On presentation he has had some low-grade temps. His WBC is normal. CT of the abdomen and pelvis showing asymmetry in his psoas muscle with the left being big and there are some foci of gas. There is no other abnormality seen. Blood cultures done on admission are now reported as growing gram-positive cocci in clusters. His urinalysis is unremarkable. Patient has known coronary artery disease and had undergone CABG in 2016. He stated that his pacemaker was placed about a year before his CABG. This was done in [place]. 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 Infectious disease consultation has been requested to evaluate the patient with positive blood culture. Patient still complaining of significant pain in the left flank. Patient notes that he still has some pain on his left flank. The left drainage catheter has been removed. Afebrile Patient denies chills. C/S of fluid Staph aureus last (+) BC 10/[address] noted All BC (+) MSSA - last +BC 10/31 WBC normal. Antibiotics: Ancef Lines: PIV Past Medical History: Coronary artery disease High cholesterol Pacemaker Hx of CABG Allergies/Adverse Reactions: Allergies No Known Allergies Allergy (Unverified 10/25/17 22:42) Objective Vital Signs 11/07/17 20:00 11/08/17 00:00 11/08/17 04:00 Temperature 98.0 F 98.7 F 97.9 F Pulse Rate 98 H 93 H 104 H Respiratory Rate 18 18 18 Blood Pressure 115/80 152/94 H 138/88 Pulse Oximetry 94 L 95 93 L 11/08/17 08:00 11/08/17 12:00 11/08/17 16:00 Temperature 98.2 F 97.3 F L 97.8 F Pulse Rate 101 H 94 H 92 H Respiratory Rate 20 20 20 Blood Pressure 120/84 123/68 126/77 Pulse Oximetry 93 L 95 95 Intake & Output 11/07/17 11/08/17 11/08/17 18:59 06:59 18:59 Intake Total 811.25 / 811.25 1200 / 1200 1680 / 1680 Output Total 1200 / 1200 600 / 600 Balance -388.75 / -388.75 1200 / 1200 1080 / 1080 Intake: IV 311.25 / 311.25 1200 / 1200 1200 / 1200 NS Inj 1,000 ML @ 125 mls/hr IV 1000 / 1000 1000 / 1000 .CONT .Q8H [facility] Rx#:[id number] Gentamicin Inj 450 MG In NS Inj 111.25 / 111.25 100 ML @ 100 mls/hr IV.SIG Q24H [facility] Rx#:[id number] Ancef Inj 2,000 MG In NS Inj 80 200 / 200 200 / 200 200 / 200 ML @ 200 mls/hr IV.SIG Q6H [facility] Rx#:[id number] Oral 500 / 500 480 / 480 Output: Urine 1200 / 1200 600 / 600 Wound Drainage 0 / 0 Left Lateral Back 0 / 0 Other: Date of Last Bowel Movement 11/07/17 11/07/17 # Bowel Movements 1 11/03/17 06:00 Blood - Peripheral Aerobic Blood Culture - Final No growth in 5 days 11/03/17 06:00 Blood - Peripheral Anaerobic Blood Culture - Final No growth in 5 days 11/02/17 06:48 Blood - Peripheral Aerobic Blood Culture - Final No growth in 5 days 11/02/17 06:48 Blood - Peripheral Anaerobic Blood Culture - Final No growth in 5 days 11/03/17 15:55 Abscess - Other Gram Stain - Final 11/03/17 15:55 Abscess - Other Wound Culture - Final Staphylococcus aureus Lab - Chemistry Results 11/07/17 06:13 Creatinine 1.03 Estimated GFR 73 L Imaging: ITS Impressions CT Consultation 10/28/17 00:00 CONCLUSION: 1. A few dots of air identified in the enlarged left psoas with no obvious drainable fluid collection. Findings may represent an inflammatory phlegmon which could develop into an abscess over the next few days. 2. In addition, the patient was on Plavix therapy. His last dose was administered yesterday. This will have to be held for at least 3 days prior to any intervention. 3. Discussed with Dr. Demarco from infectious disease at the time of this dictation. Abdomen/Pelvis CT 10/29/17 00:00 CONCLUSION: 1. Again a large hypodense area in the left psoas muscle with tiny locules of air, increased from the previous study presumably infection or infected hematoma. 2. Bilateral inguinal hernias right greater than left containing fat Lumbar Spine CT 11/02/17 00:00 CONCLUSION: 1. Left iliac artery aneurysm. 2. Degenerative changes and scoliosis. 3. Left psoas abscess identified extending 11 cm in cephalocaudal dimension. 4. Bilateral hydroureter. Abscess Drainage CT 11/03/17 00:00 CONCLUSION: 1. Uncomplicated CT guided drainage. Chest X-Ray 11/03/17 17:14 CONCLUSION: There is a tortuous aorta. Lungs are clear. I don't see any evidence of a pneumothorax on the left side. Pelvis CT 11/07/17 16:26 CONCLUSION: 1. Left percutaneous catheter is looped in the left psoas muscle. There is no residual fluid or air seen within the left psoas muscle or around the catheter. Consider catheter removal. 2. Large right inguinal hernia containing fat and the urinary bladder. This represents a change from the prior study in that the hernia previously did not contain the urinary bladder. 3. Stable left common iliac artery aneurysm measuring 2.9 cm. Physical Exam: GENERAL: awake and alert, NAD SKIN: Warm and dry. No generalized rash. The skin has a red hue. HEENT: Head atraumatic. Extraocular movements grossly intact. No icterus. Oropharynx moist mucosa without lesions. NECK: Trachea midline. CARDIOVASCULAR: Regular rate and rhythm. No murmurs, rubs or gallops heard. Pacemaker in L upper chest with no evidence of infection RESPIRATORY: Clear to auscultation. Breath sounds equal bilaterally. No rales , wheezing or rhonchi ABDOMEN: Soft, globular, nondistended, Bowel sounds present and normoactive. EXTREMITIES: No clubbing, cyanosis, or edema. No calf tenderness. NEUROLOGICAL: Nonfocal. PSYCHIATRIC: Normal affect, calm and cooperative. LINE: No evidence of infection Assessment and Plan - Plan Impression Staph aureus sepsis, worrisome foe endovascular focus, IE, pacer L psoas fluid collection likely abscess, hematogenous spread S/P CABG 2015 S/P Pacemaker 2014 Recommendation Continue IV Ancef. Patient had prolonged bacteremia and has pacemaker. He may require a course of IV outpatient treatment. Determination of duration for antibiotic treatment will be made by Dr. Demarco when she returns on Friday. The above has been discussed with the patient.
[2017-11-09] MEDS: Sod Chloride 0.9% Inj 1,000 ML IV.CONT SCH ×5 (00:46→22:22)
[2017-11-09] MEDS: ceFAZolin Inj 2,000 MG in Sodium Chlor 0.9% Inj 80 ML IV.SIG SCH ×4 (03:18→21:00)
[2017-11-09] MEDS: Morphine Sulfate Inj 2 MG/ML Vial IV.PUSH PRN (03:43)
[2017-11-09] MEDS: Amiodarone 200 MG Tablet PO SCH (08:53)
[2017-11-09] MEDS: Furosemide 40 MG Tablet PO SCH (08:53)
[2017-11-09] MEDS: Senna/Docusate Sodium 8.6/50 MG Tablet PO SCH ×2 (08:53→20:52)
[2017-11-09] MEDS: Lisinopril 20 MG Tablet PO SCH (08:54)
[2017-11-09] MEDS: Meloxicam 7.5 MG Tablet PO SCH ×2 (08:54→20:52)
--- NOTE | 2017-11-09 14:03 | P.PNIM ---
Subjective Interval history: Patient reports he is feeling well today. Afebrile. No new issues. Physical Exam Vital signs: Vital Signs 11/08/17 16:00 11/08/17 20:00 11/08/17 23:56 Temperature 97.8 F 97.8 F 97.9 F Pulse Rate 92 H 91 H 95 H Respiratory Rate 20 16 18 Blood Pressure 126/77 119/77 132/91 H Pulse Oximetry 95 93 L 93 L 11/09/17 04:00 11/09/17 08:00 11/09/17 12:00 Temperature 97.9 F 98.5 F 97.8 F Pulse Rate 92 H 97 H 98 H Respiratory Rate 18 18 18 Blood Pressure 136/78 139/83 96/57 L Pulse Oximetry 93 L 91 L 92 L Intake & Output 11/08/17 11/09/17 11/09/17 18:59 06:59 18:59 Intake Total 1680 / 1680 2440 / 2440 1100 / 1100 Output Total 600 / 600 1800 / 1800 Balance 1080 / 1080 640 / 640 1100 / 1100 Weight 90.9 kg Intake: IV 1200 / 1200 2200 / 2200 1100 / 1100 NS Inj 1,000 ML @ 125 mls/hr IV 1000 / 1000 2000 / 2000 1000 / 1000 .CONT .Q8H [facility] Rx#:[id number] Ancef Inj 2,000 MG In NS Inj 80 200 / 200 200 / 200 100 / 100 ML @ 200 mls/hr IV.SIG Q6H [facility] Rx#:[id number] Oral 480 / 480 240 / 240 Output: Urine 600 / 600 1800 / 1800 Other: Date of Last Bowel Movement 11/07/17 11/07/17 # Bowel Movements 1 Narrative: GENERAL: This is a well-nourished, well-developed patient, in no apparent distress. CARDIOVASCULAR: Normal rate and regular rhythm without murmurs, gallops, or rubs. RESPIRATORY: Good respiratory efforts. Breath sounds equal and clear to auscultation bilaterally. GASTROINTESTINAL: Abdomen soft, non-tender, non-distended. Normal active bowel sounds NEURO: Alert & Oriented x4 to person, place, time, situation. Moves all ext x4 PSYCH: Appropriate mood and affect. Results - Labs CBC & Chem 7: 11/05/17 05:10 11/09/17 05:51 Laboratory Results - last 24 hr 11/09/17 05:51 Creatinine 1.23 Estimated GFR 60 L Microbiology 11/03/17 06:00 Blood - Peripheral Aerobic Blood Culture - Final No growth in 5 days 11/03/17 06:00 Blood - Peripheral Anaerobic Blood Culture - Final No growth in 5 days - Procedures 10/28/17- RACHEL Assessment and Plan - Assessment (1) Psoas abscess, left Code(s): K68.12 - Psoas muscle abscess Status: Acute (2) Intractable pain Code(s): R52 - Pain, unspecified Status: Acute (3) Hypokalemia Code(s): E87.6 - Hypokalemia Status: Acute (4) Bacteremia due to Staphylococcus aureus Code(s): R78.81 - Bacteremia Status: Acute - Plan 62-year-old male with a past medical history of coronary artery disease, status post CABG 5, status post pacemaker placement, and dyslipidemia. The patient presented to the emergency department 3 days of left-sided flank pain. He initially thought he had pulled a muscle while doing yard work. The patient's symptoms were getting worse and he came into our emergency department for evaluation. 1. MSSA bacteremia with left psoas abscess. CT scan of the abdomen and pelvis shows a left psoas muscle with findings consistent with a psoas abscess. Blood cultures are positive for staph aureus. Repeat blood cultures are still positive. A repeat CT scan of the abdomen and pelvis shows growing size of the abscess. The surgical team is recommending interventional radiology to drain the abscess. A RACHEL was also done which did not show any valvular vegetations or vegetations on the pacemaker lead. He will be continued on IV Ancef and gentamicin as per infectious disease recommendations. -Status post drainage by IR. Drain is currently in place. Follow output. - Continue IV Antibiotics. He will need 6 weeks of IV antibiotics per ID. -Fluid cultures grew MSSA. - Drain output decreased. IR removed the drain. A repeat CT if the abdomen does not show any fluid. CT did show inguinal hernia containing bladder and fat. This can be followed outpatient for repair as he is currently asymptomatic. - ID. Dr. Demarco to follow up tomorrow to decide on antibiotics. Will need approval from his insurance company for home IV antibiotics. 2. Coronary artery disease status post CABG/dyslipidemia Continue current medications. Plavix was held for drainage of the abscess. Resume Plavix.
[2017-11-10] MEDS: ceFAZolin Inj 2,000 MG in Sodium Chlor 0.9% Inj 80 ML IV.SIG SCH ×4 (04:41→22:07)
[2017-11-10 05:33] LABS: Hematocrit 33.9 % (39.0-51.0); Hemoglobin 11.4 gm/dL (13.0-17.0); Mean Corpuscular HGB Conc 33.8 % (32.0-36.0); Mean Corpuscular Hemoglobin 30.9 pg (27.0-34.0); Mean Corpuscular Volume 91.6 fL (80.0-100.0); Mean Platelet Volume 6.3 fL (7.0-11.0); Platelet Count 478 th/mm3 (150-450); Red Cell Distribution Width 13.6 % (11.6-17.2)
[2017-11-10 05:51] LABS: Calcium 8.9 mg/dL (8.5-10.1); Carbon Dioxide 29.9 meq/L (21.0-32.0); Potassium 4.4 meq/L (3.5-5.1)
[2017-11-10] MEDS: Sod Chloride 0.9% Inj 1,000 ML IV.CONT SCH ×3 (06:02→16:48)
[2017-11-10] MEDS: Furosemide 40 MG Tablet PO SCH (08:38)
[2017-11-10] MEDS: Meloxicam 7.5 MG Tablet PO SCH ×2 (08:38→22:14)
[2017-11-10] MEDS: Senna/Docusate Sodium 8.6/50 MG Tablet PO SCH ×2 (08:38→22:14)
[2017-11-10] MEDS: Amiodarone 200 MG Tablet PO SCH (08:39)
[2017-11-10] MEDS: Lisinopril 20 MG Tablet PO SCH (08:40)
--- NOTE | 2017-11-10 09:57 | P.DCO ---
Post Hospital Infusion Therapy Location of Infusion Therapy: Home Health Care IV Infusion Order Patient Weight: 91.2 kg - Diagnosis (1) Sepsis due to Staphylococcus aureus Code(s): A41.01 - - Administer Medication Cefazolin Dose: 2 grams IV Directions: q 6 hours Additional Dosing Instructions: Ancef 2 gm IV q6h via CADD plus pump Stop Treatment: 12/18/17 - Additional Information Venous Access: PICC Line Additional Instructions: [x] Peripheral flush and dressing changes per protocol [x] Implanted port and central portable track line marker: * Implanted port: 10 ml Normal Saline followed by 5 ml Heparin 100 units/ml Heparin flush after each use and monthly to maintain. [] May leave port accessed during therapy. [] May leave peripheral site accessed for duration of therapy. [x] If patient has SOB or respiratory distress, check oxygen saturation. If less than 90% or clinical signs of respiratory distress, administer oxygen at 2 L/min. via nasal cannula and notify physician. [x] Anaphylaxis/Reaction orders: * Stop infusion. * Keep IV line open with saline flush. * Notify physician. * Monitor vital signs every 15 minutes until symptoms resolve. * Check Oxygen saturation; Oxygen at 2 L/min. via nasal cannula if less than 90% or clinical signs of respiratory distress. * Administer diphenhydramine (Benadryl) 25 mg IV STAT, (unless patient has received as pre-med). May repeat once, if necessary. * Solu-Cortef 250 mg IVP over 30-60 seconds, use 100 mg vials for each dissolution. * Epinephrine (1mg/1 ml) 0.3 mg subcutaneously or IVP now with any signs of respiratory distress. * Check with physician for new additional pre-med orders if patient is re- challenged or re-treated. [x] May remove PICC line when treatment complete. [x] If the patient is admitted to the hospital, the ED, or transferred via [facility] , complete transfer form including medication reconciliation order sheet. Weekly Labs: CBC w/diff, Creatinine (Labs every Mod[place] copy to me and Dr [place] Balbuena) Allergies No Known Allergies Allergy (Unverified 10/25/17 22:42)
--- NOTE | 2017-11-10 10:51 | P.PNID ---
Subjective Remarks: Patient is a 62-year-old male, presented to the hospital complaining of 4-5 day history of left-sided flank pain. He was apparently working in the yard, pulling weeds and he was doing this for 2 days. About 4 days prior to admission he started experiencing left-sided flank, side pain and the pain was quite severe that he was not able to do much. He denies any fever chills or sweats. He has not had any nausea or vomiting. He has not had any problem with his bowels. He has been voiding without any problem. Patient has not had any treatment for any infection in the last several months. On presentation he has had some low-grade temps. His WBC is normal. CT of the abdomen and pelvis showing asymmetry in his psoas muscle with the left being big and there are some foci of gas. There is no other abnormality seen. Blood cultures done on admission are now reported as growing gram-positive cocci in clusters. His urinalysis is unremarkable. Patient has known coronary artery disease and had undergone CABG in 2016. He stated that his pacemaker was placed about a year before his CABG. This was done in [place]. 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 Infectious disease consultation has been requested to evaluate the patient with positive blood culture. Patient still complaining of significant pain in the left flank. Notes reviewed Afebrile Feels better Drain has been removed Repeat CT better, new finding bladder in his hernia C/S of fluid Staph aureus last (+) BC 10/[address] noted All BC (+) MSSA - last +BC 10/31 WBC normal. Antibiotics: Ancef Lines: PIV Past Medical History: Coronary artery disease High cholesterol Pacemaker Hx of CABG Allergies/Adverse Reactions: Allergies No Known Allergies Allergy (Unverified 10/25/17 22:42) Objective Vital Signs 11/09/17 12:00 11/09/17 16:00 11/09/17 20:00 Temperature 97.8 F 98.0 F 98.3 F Pulse Rate 98 H 91 H 93 H Respiratory Rate 18 18 21 Blood Pressure 96/57 L 111/66 123/78 Pulse Oximetry 92 L 98 94 L 11/10/17 00:00 11/10/17 04:00 11/10/17 08:00 Temperature 98.1 F 98.1 F 97.8 F Pulse Rate 88 91 H 97 H Respiratory Rate 20 20 20 Blood Pressure 148/91 H 136/82 147/85 H Pulse Oximetry 95 95 97 Intake & Output 11/09/17 11/10/17 11/10/17 18:59 06:59 18:59 Intake Total 1920 / 1920 2680 / 2680 100 / 100 Output Total 900 / 900 600 / 600 Balance 1020 / 1020 2080 / 2080 100 / 100 Weight 91.2 kg 91.2 kg Intake: IV 1200 / 1200 2200 / 2200 100 / 100 NS Inj 1,000 ML @ 125 mls/hr IV 1000 / 1000 2000 / 2000 .CONT .Q8H [facility] Rx#:[id number] Ancef Inj 2,000 MG In NS Inj 80 200 / 200 200 / 200 100 / 100 ML @ 200 mls/hr IV.SIG Q6H [facility] Rx#:[id number] Oral 720 / 720 480 / 480 Output: Urine 900 / 900 600 / 600 11/03/17 06:00 Blood - Peripheral Aerobic Blood Culture - Final No growth in 5 days 11/03/17 06:00 Blood - Peripheral Anaerobic Blood Culture - Final No growth in 5 days 11/02/17 06:48 Blood - Peripheral Aerobic Blood Culture - Final No growth in 5 days 11/02/17 06:48 Blood - Peripheral Anaerobic Blood Culture - Final No growth in 5 days Lab - Hematology Results 11/10/17 05:18 WBC 7.0 RBC 3.70 L Hgb 11.4 L Hct 33.9 L MCV 91.6 MCH 30.9 MCHC 33.8 RDW 13.6 Plt Count 478 H MPV 6.3 L Lab - Chemistry Results 11/09/17 11/10/17 05:51 05:18 Sodium 137 Potassium 4.4 Chloride 100 Carbon Dioxide 29.9 Anion Gap 7 BUN 17 Creatinine 1.23 1.33 H Estimated GFR 60 L 54 L Random Glucose 87 Calcium 8.9 Imaging: ITS Impressions CT Consultation 10/28/17 00:00 CONCLUSION: 1. A few dots of air identified in the enlarged left psoas with no obvious drainable fluid collection. Findings may represent an inflammatory phlegmon which could develop into an abscess over the next few days. 2. In addition, the patient was on Plavix therapy. His last dose was administered yesterday. This will have to be held for at least 3 days prior to any intervention. 3. Discussed with Dr. Demarco from infectious disease at the time of this dictation. Abdomen/Pelvis CT 10/29/17 00:00 CONCLUSION: 1. Again a large hypodense area in the left psoas muscle with tiny locules of air, increased from the previous study presumably infection or infected hematoma. 2. Bilateral inguinal hernias right greater than left containing fat Lumbar Spine CT 11/02/17 00:00 CONCLUSION: 1. Left iliac artery aneurysm. 2. Degenerative changes and scoliosis. 3. Left psoas abscess identified extending 11 cm in cephalocaudal dimension. 4. Bilateral hydroureter. Abscess Drainage CT 11/03/17 00:00 CONCLUSION: 1. Uncomplicated CT guided drainage. Chest X-Ray 11/03/17 17:14 CONCLUSION: There is a tortuous aorta. Lungs are clear. I don't see any evidence of a pneumothorax on the left side. Pelvis CT 11/07/17 16:26 CONCLUSION: 1. Left percutaneous catheter is looped in the left psoas muscle. There is no residual fluid or air seen within the left psoas muscle or around the catheter. Consider catheter removal. 2. Large right inguinal hernia containing fat and the urinary bladder. This represents a change from the prior study in that the hernia previously did not contain the urinary bladder. 3. Stable left common iliac artery aneurysm measuring 2.9 cm. Physical Exam: GENERAL: awake and alert, NAD SKIN: Warm and dry. No generalized rash. The skin has a red hue. HEENT: Head atraumatic. Extraocular movements grossly intact. No icterus. Oropharynx moist mucosa without lesions. NECK: Trachea midline. CARDIOVASCULAR: Regular rate and rhythm. No murmurs, rubs or gallops heard. Pacemaker in L upper chest with no evidence of infection RESPIRATORY: Clear to auscultation. Breath sounds equal bilaterally. No rales , wheezing or rhonchi ABDOMEN: Soft, globular, nondistended, Bowel sounds present and normoactive. EXTREMITIES: No clubbing, cyanosis, or edema. No calf tenderness. NEUROLOGICAL: Nonfocal. PSYCHIATRIC: Normal affect, calm and cooperative. LINE: No evidence of infection Assessment and Plan (1) Sepsis due to Staphylococcus aureus Status: Acute Code(s): A41.01 - - Plan Impression Staph aureus sepsis, worrisome foe endovascular focus, IE, pacer L psoas fluid collection likely abscess, hematogenous spread S/P CABG 2015 S/P Pacemaker 2014 Recommendation Continue IV Ancef. - plan 6 weeks from date of drainage of psoas abscess I filled out Abx form Fup with Dr nickie Balbuena [facility] [place] today D/C once arrangements made If recurrent infection after this treatment, will need removal of pacer (His RACHEL was negative on this admission) Explained plan to the patient D/W Dr House ([facility])
--- NOTE | 2017-11-10 11:11 | P.PNIM ---
Subjective Interval history: Patient says he feeling well. Denies any chest pain shortness of breath. Says he feels like going home. Physical Exam Vital signs: Vital Signs 11/09/17 12:00 11/09/17 16:00 11/09/17 20:00 Temperature 97.8 F 98.0 F 98.3 F Pulse Rate 98 H 91 H 93 H Respiratory Rate 18 18 21 Blood Pressure 96/57 L 111/66 123/78 Pulse Oximetry 92 L 98 94 L 11/10/17 00:00 11/10/17 04:00 11/10/17 08:00 Temperature 98.1 F 98.1 F 97.8 F Pulse Rate 88 91 H 97 H Respiratory Rate 20 20 20 Blood Pressure 148/91 H 136/82 147/85 H Pulse Oximetry 95 95 97 Intake & Output 11/09/17 11/10/17 11/10/17 18:59 06:59 18:59 Intake Total 1920 / 1920 2680 / 2680 100 / 100 Output Total 900 / 900 600 / 600 Balance 1020 / 1020 2080 / 2080 100 / 100 Weight 91.2 kg 91.2 kg Intake: IV 1200 / 1200 2200 / 2200 100 / 100 NS Inj 1,000 ML @ 125 mls/hr IV 1000 / 1000 2000 / 2000 .CONT .Q8H [facility] Rx#:[id number] Ancef Inj 2,000 MG In NS Inj 80 200 / 200 200 / 200 100 / 100 ML @ 200 mls/hr IV.SIG Q6H [facility] Rx#:[id number] Oral 720 / 720 480 / 480 Output: Urine 900 / 900 600 / 600 Narrative: GENERAL: Sitting up in bed. Appears comfortable. Alert and oriented x3. SKIN: Warm and dry. HEAD: Normocephalic. EYES: No scleral icterus. No injection or drainage. NECK: Supple, trachea midline. No JVD. CARDIOVASCULAR: Regular rate and rhythm without murmurs, gallops, or rubs. RESPIRATORY: Breath sounds equal bilaterally. No accessory muscle use. GASTROINTESTINAL: Abdomen soft, non-tender, nondistended. MUSCULOSKELETAL: No cyanosis, or edema. BACK: Nontender without obvious deformity. No CVA tenderness. Results - Labs CBC & Chem 7: 11/10/17 05:18 11/10/17 05:18 Laboratory Results - last 24 hr 11/10/17 11/10/17 05:18 05:18 WBC 7.0 RBC 3.70 L Hgb 11.4 L Hct 33.9 L MCV 91.6 MCH 30.9 MCHC 33.8 RDW 13.6 Plt Count 478 H MPV 6.3 L Sodium 137 Potassium 4.4 Chloride 100 Carbon Dioxide 29.9 Anion Gap 7 BUN 17 Creatinine 1.33 H Estimated GFR 54 L Random Glucose 87 Calcium 8.9 - Procedures 10/28/17- RACHEL Assessment and Plan - Assessment (1) Psoas abscess, left Code(s): K68.12 - Status: Acute (2) Intractable pain Code(s): R52 - Status: Acute (3) Hypokalemia Code(s): E87.6 - Status: Acute (4) Bacteremia due to Staphylococcus aureus Code(s): R78.81 - Status: Acute - Plan 62-year-old male with a past medical history of coronary artery disease, status post CABG 5, status post pacemaker placement, and dyslipidemia. The patient presented to the emergency department 3 days of left-sided flank pain. He initially thought he had pulled a muscle while doing yard work. The patient's symptoms were getting worse and he came into our emergency department for evaluation. // MSSA bacteremia with left psoas abscess. CT scan of the abdomen and pelvis shows a left psoas muscle with findings consistent with a psoas abscess. Blood cultures are positive for staph aureus. Repeat blood cultures are still positive. A repeat CT scan of the abdomen and pelvis shows growing size of the abscess. The surgical team is recommending interventional radiology to drain the abscess. A RACHEL was also done which did not show any valvular vegetations or vegetations on the pacemaker lead. He will be continued on IV Ancef and gentamicin as per infectious disease recommendations. -Status post drainage by IR. Drain is currently in place. Follow output. - Continue IV Antibiotics. He will need 6 weeks of IV antibiotics per ID. -Fluid cultures grew MSSA. - Drain output decreased. IR removed the drain. A repeat CT if the abdomen does not show any fluid. CT did show inguinal hernia containing bladder and fat. This can be followed outpatient for repair as he is currently asymptomatic. - ID. Dr. Demarco to follow up tomorrow to decide on antibiotics. Will need approval from his insurance company for home IV antibiotics. = 11/10. Discussed with infectious disease. Appreciate assistance. Discharge home on IV antibiotics when arrangements made. =pt consult pending. //Coronary artery disease status post CABG/dyslipidemia Continue current medications. Plavix was held for drainage of the abscess. Resume Plavix. Discharge Planning: Discharge home on IV antibiotics when arrangements made.
--- NOTE | 2017-11-10 11:12 | P.DS ---
Date of admission: 10/28/17 07:49 Primary care physician: No Primary Care Physician Brief History from admission: This is a 62-year-old male with a PMH of HTN, Hyperlipidemia, Pacemaker and CAD s/p CABG who presented to the ER with complaints of severe back pain x3 days. States he was pulling weeds on Friday (4 days ago) and had complaints of left -sided back pain, states "I've been bed bound since ". No h/o similar symptoms. Pain is constant, severe, 10/10, non-radiating, worse w/ movement. On arrival, BP 120/82, HR 85, O2 sat 96% on RA, Afebrile. CBC unremarkable except for platelets 128. Chemistry essentially unremarkable except for K+ 3.3. UA negative for UTI. DT Abdomen/Pelvis left psoas muscle enlarged with surrounding inflammatory changes and multiple foci of air consistent with early abscess. Pt denies fever or chills, no recent trauma. DS: Diagnosis - Discharge Diagnosis (1) Psoas abscess, left Status: Acute (2) Intractable pain Status: Acute (3) Hypokalemia Status: Acute (4) Bacteremia due to Staphylococcus aureus Status: Acute DS: Medications - Discharge Medications Prescriptions: hydrocodone-acetaminophen 1 tab PO Q4HR #18 tab DS: Summary Hospital Course: Patient admitted with sepsis. Imaging positive for left psoas abscess. Abscess was drained by IR. Blood cultures positive for staph aureus. Echocardiogram does not show vegetation. Patient improved with IV antibiotics, and will be discharged home on cefazolin as per infectious disease. We'll need to follow-up with infectious disease as outpatient. For problem-based summary from most recent progress note, please see below. 62-year-old male with a past medical history of coronary artery disease, status post CABG 5, status post pacemaker placement, and dyslipidemia. The patient presented to the emergency department 3 days of left-sided flank pain. He initially thought he had pulled a muscle while doing yard work. The patient's symptoms were getting worse and he came into our emergency department for evaluation. // MSSA bacteremia with left psoas abscess. CT scan of the abdomen and pelvis shows a left psoas muscle with findings consistent with a psoas abscess. Blood cultures are positive for staph aureus. Repeat blood cultures are still positive. A repeat CT scan of the abdomen and pelvis shows growing size of the abscess. The surgical team is recommending interventional radiology to drain the abscess. A RACHEL was also done which did not show any valvular vegetations or vegetations on the pacemaker lead. He will be continued on IV Ancef and gentamicin as per infectious disease recommendations. -Status post drainage by IR. Drain is currently in place. Follow output. - Continue IV Antibiotics. He will need 6 weeks of IV antibiotics per ID. -Fluid cultures grew MSSA. - Drain output decreased. IR removed the drain. A repeat CT if the abdomen does not show any fluid. CT did show inguinal hernia containing bladder and fat. This can be followed outpatient for repair as he is currently asymptomatic. - ID. Dr. Demarco to follow up tomorrow to decide on antibiotics. Will need approval from his insurance company for home IV antibiotics. = 11/10. Discussed with infectious disease. Appreciate assistance. Discharge home on IV antibiotics when arrangements made. =pt consult pending. //Coronary artery disease status post CABG/dyslipidemia Continue current medications. Plavix was held for drainage of the abscess. Resume Plavix. Discharge Planning: Discharge home on IV antibiotics when arrangements made. - Time Spent with Patient Total time spent providing and/or coordinating discharge services: Greater than 30 minutes - Quality: VTE Deep Vein Thrombosis/Pulmonary Embolism Present on Admission: No Exam Vital signs: Vital Signs 11/09/17 12:00 11/09/17 16:00 11/09/17 20:00 Temperature 97.8 F 98.0 F 98.3 F Pulse Rate 98 H 91 H 93 H Respiratory Rate 18 18 21 Blood Pressure 96/57 L 111/66 123/78 Pulse Oximetry 92 L 98 94 L 11/10/17 00:00 11/10/17 04:00 11/10/17 08:00 Temperature 98.1 F 98.1 F 97.8 F Pulse Rate 88 91 H 97 H Respiratory Rate 20 20 20 Blood Pressure 148/91 H 136/82 147/85 H Pulse Oximetry 95 95 97 Intake & Output 11/09/17 11/10/17 11/10/17 18:59 06:59 18:59 Intake Total 1920 / 1920 2680 / 2680 100 / 100 Output Total 900 / 900 600 / 600 Balance 1020 / 1020 2080 / 2080 100 / 100 Weight 91.2 kg 91.2 kg Intake: IV 1200 / 1200 2200 / 2200 100 / 100 NS Inj 1,000 ML @ 125 mls/hr IV 1000 / 1000 2000 / 2000 .CONT .Q8H ROXY Rx#:[id number] Ancef Inj 2,000 MG In NS Inj 80 200 / 200 200 / 200 100 / 100 ML @ 200 mls/hr IV.SIG Q6H ROXY Rx#:[id number] Oral 720 / 720 480 / 480 Output: Urine 900 / 900 600 / 600 Results Procedures completed during hospitalization: 10/28/17- RACHEL Drain placement. Please see IR report. Labs on day of discharge: Labs from last 24 hours 11/10/17 11/10/17 05:18 05:18 WBC 7.0 RBC 3.70 L Hgb 11.4 L Hct 33.9 L MCV 91.6 MCH 30.9 MCHC 33.8 RDW 13.6 Plt Count 478 H MPV 6.3 L Sodium 137 Potassium 4.4 Chloride 100 Carbon Dioxide 29.9 Anion Gap 7 BUN 17 Creatinine 1.33 H Estimated GFR 54 L Random Glucose 87 Calcium 8.9 - Impressions ITS Impressions CT Consultation 10/28/17 00:00 CONCLUSION: 1. A few dots of air identified in the enlarged left psoas with no obvious drainable fluid collection. Findings may represent an inflammatory phlegmon which could develop into an abscess over the next few days. 2. In addition, the patient was on Plavix therapy. His last dose was administered yesterday. This will have to be held for at least 3 days prior to any intervention. 3. Discussed with Dr. Demarco from infectious disease at the time of this dictation. Abdomen/Pelvis CT 10/29/17 00:00 CONCLUSION: 1. Again a large hypodense area in the left psoas muscle with tiny locules of air, increased from the previous study presumably infection or infected hematoma. 2. Bilateral inguinal hernias right greater than left containing fat Lumbar Spine CT 11/02/17 00:00 CONCLUSION: 1. Left iliac artery aneurysm. 2. Degenerative changes and scoliosis. 3. Left psoas abscess identified extending 11 cm in cephalocaudal dimension. 4. Bilateral hydroureter. Abscess Drainage CT 11/03/17 00:00 CONCLUSION: 1. Uncomplicated CT guided drainage. Chest X-Ray 11/03/17 17:14 CONCLUSION: There is a tortuous aorta. Lungs are clear. I don't see any evidence of a pneumothorax on the left side. Pelvis CT 11/07/17 16:26 CONCLUSION: 1. Left percutaneous catheter is looped in the left psoas muscle. There is no residual fluid or air seen within the left psoas muscle or around the catheter. Consider catheter removal. 2. Large right inguinal hernia containing fat and the urinary bladder. This represents a change from the prior study in that the hernia previously did not contain the urinary bladder. 3. Stable left common iliac artery aneurysm measuring 2.9 cm. Discharge Plan - Discharge Disposition Patient Disposition: /Home Health Service - Discharge Condition Condition: Stable - Discharge Order Discharge Orders: Discharge Order (Routine); Ordered 11/10/17 Ordered By: Dennis House - Discharge Details Anticipated Discharge Date: 11/10/17 Discharge Comment: Discharge after PICC line placed, and home IV infusion is set up by case management. - Physicians Team Primary Care Provider: Primary Care Scotti,Celia Attending Provider: Dennis House Other Providers: Jade Demarco MD ; Eze Araujo MD ; Phani Guidry MD
--- NOTE | 2017-11-10 11:16 | P.DCO ---
- Physical Therapy Order: Evaluate and treat - Home Health Nursing Order: Nursing assessment with vital signs, IV medication administration Instructions: IV Ancef, 2 g every 6 hours via PICC line Stop Treatment: 12/18/17 Please see infectious disease "post hospital infusion therapy" form - Case Management Consult Yes - Certification I have seen patient Enrique Oropeza on 11/10/17. My clinical findings support the need for the requested home health care services because: Limited ability to care for self I certify that my clinical findings support that this patient is homebound because: Need for psychosocial assistance
[2017-11-10] MEDS ORDERED: Heparin Central Flush 100 UNIT/ML 5 ML Vial IV.FLUSH PRN (14:52)
[2017-11-11] MEDS: ceFAZolin Inj 2,000 MG in Sodium Chlor 0.9% Inj 80 ML IV.SIG SCH ×2 (03:08→09:01)
[2017-11-11] MEDS: Furosemide 40 MG Tablet PO SCH (08:08)
[2017-11-11] MEDS: Senna/Docusate Sodium 8.6/50 MG Tablet PO SCH (08:09)
[2017-11-11] MEDS: Amiodarone 200 MG Tablet PO SCH (08:09)
[2017-11-11] MEDS: Lisinopril 20 MG Tablet PO SCH (08:09)
[2017-11-11] MEDS: Meloxicam 7.5 MG Tablet PO SCH (08:09)
[2017-11-11 08:27] LABS: Calcium 8.6 mg/dL (8.5-10.1); Carbon Dioxide 28.7 meq/L (21.0-32.0); Potassium 4.4 meq/L (3.5-5.1)
[2017-11-11] MEDS ORDERED: Heparin Central Flush 100 UNIT/ML 5 ML Vial IV.FLUSH SCH (09:00)
[2017-11-11 10:13] VITALS: BP 124/95; PULSE 93; RESP 20; TEMP 98.3; O2SAT 94
== END 2017-11-11 10:33 | disposition home health service (06) ==
LOC: NEDA 21:33 → NEPD 21:33 → NEPFCDU 10-26 03:45 → N04 10-29 20:24
PROVIDERS: ADMIT Internal Medicine; ATTEND Internal Medicine